=== PATIENT | male | born 1935 | race Caucasian/White ===

== ENCOUNTER 2017-12-19 09:35 | Inpatient (IN) | payer MEDICARE, BC ==
[~2017-12-19 09:35] MED LIST: Iopamidol 370 76% 100 ML VIAL ONE; Iopamidol 370 76% 50 ML VIAL FS ONE
[2017-12-19] MEDS ORDERED: Heparin 10,000 UNITS/1 ML VIAL ONE (09:50)
[2017-12-19] MEDS ORDERED: Aggrastat 12.5 MG/250 ML 250 ML ONE (10:07)
[2017-12-19] MEDS ORDERED: Fentanyl 100 MCG/2 ML VIAL ONE (10:09)
[2017-12-19] MEDS ORDERED: Clopidogrel Bisulfate 300 MG TAB ONE (10:25)
[2017-12-19] MEDS ORDERED: Nitroglycerin 0.4 MG TAB (25 Tab Bottle) SL PRN (10:40)
[2017-12-19] MEDS ORDERED: Aggrastat 12.5 MG/250 ML 250 ML IVPB SCH (10:45)
[2017-12-19 11:14] VITALS: BMI 30.6
[2017-12-19 11:18] LABS: #Eosinphils 0.1 thou/uL (0.0-0.7); #Lymphocytes 1.1 thou/uL (1.20-3.40); #Monocytes 0.3 thou/uL (0.11-0.59); #Neutrophils 5.6 thou/uL (1.40-6.50); %Basophils 0.5 % (0.0-1.0); %Eosinophils 1.6 % (0.0-10.0); %Lymphocytes 15.7 % (21.0-51.0); %Monocytes 4.3 % (0.0-10.0); %Neutrophils 77.9 % (42.0-75.0); Hemoglobin 13.5 g/dL (14.0-18.0); Mean Corpuscular HGB CONC 33.6 g/dL (32.0-36.0); Mean Corpuscular Hemoglobin 32.7 pg (27.0-31.0); Mean Corpuscular Volume 97.1 fL (78.0-98.0); Mean Platelet Volume 7.4 fL (7.4-10.4); Platelet Count 145 thou/uL (130-400); RBC Distribution Width 12.2 % (11.5-14.5); Red Blood Cell (RBC) Count 4.14 mill/uL (4.70-6.10); White Blood Cell (WBC) Count 7.2 thou/uL (4.8-10.8)
[2017-12-19 11:56] LABS: ALT (SGPT) Less than 7 U/L (8-55); AST (SGOT) 9 U/L (5-34); Albumin 3.4 g/dL (3.4-4.8); Alkaline Phosphatase 56 U/L (40-150); Anion Gap 11 mmol/L (10-20); BUN (Urea Nitrogen) 24 mg/dL (8.4-25.7); Bilirubin, Total 1.1 mg/dL (0.2-1.2); Calc. Creatinine Clearance 109 mL/min (70-130); Calcium 9.4 mg/dL (7.8-10.44); Carbon Dioxide 23 mmol/L (23-31); Chloride 104 mmol/L (98-107); Estimated GFR-MDRD 88; Globulin 2.8 g/dL (2.4-3.5); Glucose 193 mg/dL (83-110); Potassium 3.1 mmol/L (3.5-5.1); Protein, Total 6.2 g/dL (5.8-8.1); Sodium 135 mmol/L (136-145)
[2017-12-19 11:58] LABS: CKMB 2.6 ng/mL (0-6.6); Troponin I 0.075 ng/mL (< 0.028)
--- NOTE | 2017-12-19 12:31 | RAD ---
SINGLE VIEW OF THE CHEST: COMPARISON: None. HISTORY: Status post interventional cardiology. FINDINGS: A single view of the chest shows an enlarged cardiomediastinal silhouette. There is no evidence of c onsolidation, mass, or pleural effusion. Degenerative changes are seen in the spine. IMPRESSION: Cardiomegaly without evidence of acute cardiopulmonary disease. POS: [facility]
[2017-12-19] MEDS ORDERED: Carbidopa/Levodopa 10-100 mg Tablet PO SCH (13:00)
[2017-12-19] MEDS: Carbidopa/Levodopa 25-100 mg Tablet PO SCH ×3 (14:40→22:19)
[2017-12-19] MEDS: hydrALAZINE 20 MG/ML VIAL SLOW IVP PRN (15:23)
--- NOTE | 2017-12-19 17:04 | HP ---
DATE OF ADMISSION: 12/19/2017 CHIEF COMPLAINT: Chest pain. PRIMARY CASKET TRIMMER: Dr. Deonte Pires. HISTORY OF PRESENT ILLNESS: Mr. Fitzgerald is a very pleasant 82-year-old white gentleman who comes to [facility] for chest pain. He had chest pain about an hour before presenting. He went to the [facility] in the clinic. He had an EKG and he was found to have anterior ST elevations, so EM S was called and immediately transferred over to the emergency room where he was met in the front doo r and saw that he had an EKG consistent with anterior ST elevation with reciprocal changes, so we too k him directly to the catheterization. To our surprise in the labor gang supervisor, he was found to have a large amount of thrombus and a very large dominant right coronary artery. His LAD had moderate disease, b ut nothing flow limiting certainly no acute lesion to explain his anterior ST elevations. He had suc cessful PCI to his RCA with a bare metal stent. This was a 4.0 vessel with very good results. His p ain resolved immediately after this was ballooned open. He also had a manual thrombectomy performed and white thrombus came out suggestive of this being a very early presentation of an [place]. He is doing much better and is currently in the ICU with Aggrastat drip. He is chest pain free at that time. H is only complaint is knee pain from being flat. PAST MEDICAL HISTORY: 1. History of varicose veins. 2. Hypertension. 3. Chronic atrial fibrillation. 4. Chronic anticoagulation with Pradaxa. 5. TIAs in the past. 6. Atrial fibrillation ablation in the past. 7. Heart catheterization in the past showing mild coronary artery disease. 8. Moderate aortic valve stenosis. 9. Parkinson disease. OUTPATIENT MEDICATIONS: 1. Hydrochlorothiazide 25 mg a day. 2. Aspirin 81 mg a day. 3. Carbidopa/levodopa extended release 25/100 four times a day. 4. Losartan 100 mg daily. 5. Pradaxa 150 mg twice a day. ALLERGIES: BETA BLOCKERS caused him to be bradycardic. SOCIAL HISTORY: No alcohol, tobacco or drugs. FAMILY HISTORY: Noncontributory. REVIEW OF SYSTEMS: A 12-point review of systems was done and is all negative unless stated in the hi story of present illness. PHYSICAL EXAMINATION: VITAL SIGNS: Temperature 97.2, pulse 90, respiration rate 21, satting 99% on room air, blood pressur e 154/101. GENERAL: Awake, alert, oriented x3, in no distress. HEENT: Normocephalic, atraumatic. NECK: Supple. LUNGS: Clear. CARDIOVASCULAR: S1, S2. There is a grade 3/6 systolic murmur in the right upper sternal border, mid peaking. ABDOMEN: Soft, positive bowel sounds. EXTREMITIES: No edema. SKIN: Warm and dry. LABORATORY WORK: Reviewed. CBC with a white count of 7, hemoglobin of 13, hematocrit 40, platelet c ount of 145. Chemistry: Sodium of 135, potassium was 3.1. GFR was 88 with a creatinine of 0.83 and a BUN of 24. Troponin initially is 0.075 with a BNP of 134. Initial CK-MB was normal at 2.6, album in of 3.4. EKG was reviewed. Chest x-ray done recently shows mild cardiomegaly with no other acute cardiopulmonary issues. ASSESSMENT: 1. Acute inferior ST-elevation myocardial infarction. 2. Moderate aortic valve stenosis. 3. Parkinson disease. 4. Hypertension. 5. Atrial fibrillation. PLAN: 1. Admit to ICU overnight. He is currently on Aggrastat for the large amount of thrombus in his art edison. This is scheduled to be stopped at about 4:00 p.m. and an hour later we may pull the sheath and hold manual pressure for hemostasis. 2. We will slowly restart his outpatient blood pressure medications. 3. We will not restart Pradaxa until the next 24-48 hours, secondary risk of bleeding from his groin site. 4. The reason we went right femoral on his procedure is because he told me that he had not taken his Pradaxa for the last couple of days because he was not feeling well. He sometimes does this when he does not feel well, he stops his Pradaxa, so it had been at least over 48 hours since he had 1 dose. 5. For his aortic stenosis, he has had a valve area of 0.8. We were unable to cross the aortic valv e with just a pigtail. He does have moderate aortic valve stenosis on last echo. We will see what h is echo shows this time. 6. Echocardiogram pending. 7. We will start Pradaxa most likely tomorrow. This will cover him for DVT prophylaxis as well. 8. We will start PPI for stress ulcer prophylaxis. 9. Bare metal stents were placed given his need for long-term anticoagulation and the size of the ar shanna. It was a 4.0 artery so outcomes are similar with bare metal stents and drug-eluting stents on such large vessels. FULL CODE. Dr. Pires will take over his care tomorrow, his primary maid housekeeper.
[2017-12-19 17:40] LABS: Troponin I 2.473 ng/mL (< 0.028)
[2017-12-19 17:41] LABS: CKMB 21.2 ng/mL (0-6.6)
[2017-12-19] MEDS ORDERED: Atorvastatin Calcium 40 MG TAB PO SCH (21:00)
[2017-12-19] MEDS ORDERED: RYTARY PO SCH ×2 (23:30→23:45)
[2017-12-20 05:01] LABS: #Eosinphils 0.1 thou/uL (0.0-0.7); #Lymphocytes 1.3 thou/uL (1.20-3.40); #Monocytes 0.6 thou/uL (0.11-0.59); #Neutrophils 7.1 thou/uL (1.40-6.50); %Basophils 0.3 % (0.0-1.0); %Eosinophils 1.3 % (0.0-10.0); %Lymphocytes 14.3 % (21.0-51.0); %Monocytes 6.3 % (0.0-10.0); %Neutrophils 77.9 % (42.0-75.0); Hemoglobin 14.5 g/dL (14.0-18.0); Mean Corpuscular HGB CONC 34.2 g/dL (32.0-36.0); Mean Corpuscular Volume 96.5 fL (78.0-98.0); Mean Platelet Volume 6.9 fL (7.4-10.4); Platelet Count 148 thou/uL (130-400); RBC Distribution Width 12.2 % (11.5-14.5); Red Blood Cell (RBC) Count 4.38 mill/uL (4.70-6.10); White Blood Cell (WBC) Count 9.1 thou/uL (4.8-10.8)
[2017-12-20 05:22] LABS: CKMB 39.4 ng/mL (0-6.6); Troponin I 11.681 ng/mL (< 0.028)
[2017-12-20 05:25] LABS: ALT (SGPT) Less than 7 U/L (8-55); AST (SGOT) 41 U/L (5-34); Albumin 3.4 g/dL (3.4-4.8); Alkaline Phosphatase 47 U/L (40-150); Anion Gap 11 mmol/L (10-20); BUN (Urea Nitrogen) 19 mg/dL (8.4-25.7); Calc. Creatinine Clearance 109 mL/min (70-130); Carbon Dioxide 27 mmol/L (23-31); Cardiac Risk 2.8 (Less than 4.5); Chloride 107 mmol/L (98-107); Cholesterol 132 mg/dl (< 200 Desired); Estimated GFR-MDRD 88; Globulin 2.8 g/dL (2.4-3.5); Glucose 131 mg/dL (83-110); HDL Cholesterol 47 mg/dL (>60 Neg Risk); LDL Cholesterol, Calculated 75 mg/dL; Potassium 3.6 mmol/L (3.5-5.1); Protein, Total 6.2 g/dL (5.8-8.1); Sodium 141 mmol/L (136-145); Triglycerides 48 mg/dL (Less than 150)
[2017-12-20] MEDS ORDERED: Losartan 25 MG TAB PO SCH (09:00)
[2017-12-20] MEDS ORDERED: RYTARY PO SCH (09:00)
[2017-12-20] MEDS: RYTARY PO SCH ×6 (09:53→21:28)
[2017-12-20] MEDS: Amantadine HCl 100 mg Capsule PO SCH (09:53)
[2017-12-20] MEDS: Clopidogrel Bisulfate 75 MG TAB PO SCH (10:00)
[2017-12-20] MEDS ORDERED: Sodium Chloride 0.9% 500 ML IVPB SCH (12:00)
[2017-12-20] MEDS: Sodium Chloride 0.9% 1,000 ML IV SCH (12:09)
[2017-12-20] MEDS ORDERED: Docusate 100 MG CAP PO PRN (12:31)
--- NOTE | 2017-12-20 12:50 | PDOC.CTH ---
Cardiology Progress Note - Subjective He is doing well. His right groin is without issues. No chest pain, tightness, pressure. His urine is more concentrated. Had to get a suazo placed last night due to hematuria. - Objective Vital Signs Temp Pulse Pulse Pulse Resp BP BP 12/20/17 12:00 97.9 F 92 22 H 12/20/17 09:13 97 101 H 147/73 H 166/79 H 12/20/17 07:32 98 F 96 18 12/20/17 07:00 98 F 12/20/17 04:00 97.2 F L Pulse Ox Pulse Ox Pulse Ox 12/20/17 12:00 12/20/17 09:13 99 99 12/20/17 07:32 98 12/20/17 07:00 12/20/17 04:00 Weight 251 lb 8.759 oz 12/19/17 12/20/17 12/21/17 06:59 06:59 06:59 Intake Total 785 740 Output Total 2415 180 Balance -1630 560 - Physical Examination General/Neuro: alert & oriented x3, NAD Neck: no JVD present Lungs: CTA, unlabored respirations Heart: RRR Abdomen: NT/ND Extremities: other: (no edema) - Telemetry Telemetry Rhythm: NSR, PVC's - Labs Result Diagrams: 12/20/17 04:37 12/20/17 04:37 Troponin/CKMB CK-MB (CK-2) 39.4 ng/mL (0-6.6) H* 12/20/17 04:37 Troponin I 11.681 ng/mL (< 0.028) H* 12/20/17 04:37 - Assessment/Plan 1. Acute inferior STEMI 2. Hematuria. Likely from IIbIIIa. 3. Parkinsons 4. Paroxysmal afib 5. Severe Aortic stenosis. 6. HTN PLAN: - Will transfer to floor. - Continue to monitor over the weekend. Likely home Saturday. - On ARB, ASA, Statin. Has not tolerated BB in the past. - Continue other meds. - Continue cardiac rehab. - Will consult PT OT to see if placement is needed.
[2017-12-20] MEDS: Latanoprost 0.005% Ophth Soln 2.5 ml Bottle EA EYE SCH (21:25)
[2017-12-20] MEDS: Atorvastatin Calcium 40 MG TAB PO SCH (21:27)
[2017-12-21] MEDS: Sodium Chloride 0.9% 1,000 ML IV SCH ×3 (00:49→21:12)
[2017-12-21 05:12] LABS: #Eosinphils 0.2 thou/uL (0.0-0.7); #Lymphocytes 1.4 thou/uL (1.20-3.40); #Monocytes 0.6 thou/uL (0.11-0.59); %Basophils 0.2 % (0.0-1.0); %Eosinophils 3.8 % (0.0-10.0); %Monocytes 9.2 % (0.0-10.0); %Neutrophils 64.9 % (42.0-75.0); Hemoglobin 14.1 g/dL (14.0-18.0); Mean Corpuscular HGB CONC 33.7 g/dL (32.0-36.0); Mean Corpuscular Hemoglobin 32.6 pg (27.0-31.0); Mean Corpuscular Volume 96.8 fL (78.0-98.0); Mean Platelet Volume 7.3 fL (7.4-10.4); Platelet Count 133 thou/uL (130-400); RBC Distribution Width 12.3 % (11.5-14.5); Red Blood Cell (RBC) Count 4.32 mill/uL (4.70-6.10); White Blood Cell (WBC) Count 6.2 thou/uL (4.8-10.8)
[2017-12-21 05:22] LABS: ALT (SGPT) Less than 7 U/L (8-55); AST (SGOT) 29 U/L (5-34); Albumin 3.3 g/dL (3.4-4.8); Alkaline Phosphatase 47 U/L (40-150); Anion Gap 9 mmol/L (10-20); BUN (Urea Nitrogen) 22 mg/dL (8.4-25.7); Bilirubin, Total 1.6 mg/dL (0.2-1.2); Calc. Creatinine Clearance 94 mL/min (70-130); Carbon Dioxide 25 mmol/L (23-31); Chloride 107 mmol/L (98-107); Estimated GFR-MDRD 75; Glucose 169 mg/dL (83-110); Potassium 3.3 mmol/L (3.5-5.1); Protein, Total 6.3 g/dL (5.8-8.1); Sodium 138 mmol/L (136-145)
[2017-12-21] MEDS: RYTARY PO SCH ×8 (08:59→21:05)
[2017-12-21] MEDS: Amantadine HCl 100 mg Capsule PO SCH (09:00)
[2017-12-21] MEDS: Dabigatran 150 mg Capsule PO SCH ×2 (09:00→21:05)
[2017-12-21] MEDS: Clopidogrel Bisulfate 75 MG TAB PO SCH (09:00)
[2017-12-21] MEDS: Losartan 25 MG TAB PO SCH (09:00)
[2017-12-21] MEDS ORDERED: Potassium Chloride 20 MEQ TAB PO SCH (12:15)
[2017-12-21 14:24] LABS: Hemoglobin 13.5 g/dL (14.0-18.0); Platelet Count 126 thou/uL (130-400)
[2017-12-21] MEDS ORDERED: Milk Of Magnesia 30 ML UDCUP PO PRN (19:20)
[2017-12-21] MEDS: Atorvastatin Calcium 40 MG TAB PO SCH (21:05)
[2017-12-21] MEDS: Latanoprost 0.005% Ophth Soln 2.5 ml Bottle EA EYE SCH (21:05)
[2017-12-21] MEDS: Docusate 100 MG CAP PO SCH (21:05)
--- NOTE | 2017-12-22 02:03 | CON ---
DATE OF CONSULTATION: 12/21/2017 CHIEF COMPLAINT: Gross hematuria. REASON FOR CONSULTATION: Gross hematuria. HISTORY OF PRESENT ILLNESS: Mr. Fitzgerald is an 82-year-old gentleman who was admitted to the hospital o n 12/19/2017. He developed acute onset of chest pain and was seen in an outside emergency room and t hen transferred by EMS to [facility]. He underwent angiography with PCI to his right [place] ry artery with a bare-metal stent shortly after being seen in the emergency room at [place]. He h as a Rojas catheter placed and is now on anticoagulation. He has developed gross hematuria. He has no prior history of gross hematuria. Denies any prior urologic history. Denies any prostate issues. He has no prior history of stone disease or renal disease. PAST MEDICAL HISTORY: Varicose veins, chronic atrial fibrillation, Parkinson's disease, aortic valve stenosis, coronary artery disease, hypertension. MEDICATIONS: As an outpatient hydrochlorothiazide, aspirin, losartan, Pradaxa, and carbidopa/levodop a. ALLERGIES: Does not tolerate beta blockers well. SOCIAL HISTORY: Nonsmoker, denies excessive alcohol use. REVIEW OF SYSTEMS: Respiratory: Denies shortness of breath. Cardiovascular: Please see history of present illness. His chest pain has resolved since intervention. Gastrointestinal: Denies chronic constipation, diarrhea. Neurologic: Recently diagnosed with Parkinson's disease. PHYSICAL EXAMINATION: GENERAL: He is awake and alert, in no distress. HEENT: Normocephalic, atraumatic. NECK: Supple without masses. CHEST: Clear to auscultation. CARDIOVASCULAR: Regular rate and rhythm. ABDOMEN: Soft, nontender, no palpable masses. Liver and spleen are palpable. No abdominal tenderne ss noted. Rojas catheter in place. Catheter draining bloody urine. Rojas catheter was hand irrigated with sterile saline. Catheter irrigated easily. It cleared rapidl y. DIGITAL RECTAL EXAMINATION: Prostate 30 grams. No nodules, no tenderness. Seminal vesicles nonpalp able. IMPRESSION: Mr. Fitzgerald is an 82-year-old gentleman who has developed gross hematuria after initiation of anticoagulation and placement of a Rojas catheter. There is no prior history of hematuria. The hematuria seems quite mild as it cleared readily with a hand-irrigation. RECOMMENDATIONS: 1. Okay to remove Rojas catheter, check convenience. I have seen no indication to discontinue antic oagulation as the hematuria that seems quite mild at this time. 2. He will need follow up urine testing after catheter removal to ensure the hematuria has resolved even for a microscopic standpoint. He is to follow up with Urology for this.
[2017-12-22 05:14] LABS: #Eosinphils 0.4 thou/uL (0.0-0.7); #Lymphocytes 1.9 thou/uL (1.20-3.40); #Monocytes 0.7 thou/uL (0.11-0.59); #Neutrophils 4.6 thou/uL (1.40-6.50); %Basophils 0.3 % (0.0-1.0); %Lymphocytes 24.4 % (21.0-51.0); %Monocytes 9.7 % (0.0-10.0); %Neutrophils 60.5 % (42.0-75.0); Hemoglobin 12.5 g/dL (14.0-18.0); Mean Corpuscular HGB CONC 33.1 g/dL (32.0-36.0); Mean Corpuscular Volume 96.7 fL (78.0-98.0); Mean Platelet Volume 7.5 fL (7.4-10.4); Platelet Count 124 thou/uL (130-400); RBC Distribution Width 12.3 % (11.5-14.5); White Blood Cell (WBC) Count 7.6 thou/uL (4.8-10.8)
[2017-12-22 05:39] LABS: ALT (SGPT) Less than 7 U/L (8-55); AST (SGOT) 19 U/L (5-34); Albumin 3.1 g/dL (3.4-4.8); Alkaline Phosphatase 41 U/L (40-150); Anion Gap 8 mmol/L (10-20); BUN (Urea Nitrogen) 18 mg/dL (8.4-25.7); Bilirubin, Total 1.3 mg/dL (0.2-1.2); Calc. Creatinine Clearance 119 mL/min (70-130); Calcium 8.5 mg/dL (7.8-10.44); Carbon Dioxide 25 mmol/L (23-31); Chloride 109 mmol/L (98-107); Estimated GFR-MDRD Greater than 90; Globulin 2.5 g/dL (2.4-3.5); Glucose 110 mg/dL (83-110); Potassium 3.3 mmol/L (3.5-5.1); Protein, Total 5.6 g/dL (5.8-8.1); Sodium 139 mmol/L (136-145)
[2017-12-22] MEDS: Amantadine HCl 100 mg Capsule PO SCH (09:52)
[2017-12-22] MEDS: Losartan 25 MG TAB PO SCH (09:52)
[2017-12-22] MEDS: Clopidogrel Bisulfate 75 MG TAB PO SCH (09:52)
[2017-12-22] MEDS: Docusate 100 MG CAP PO SCH ×2 (09:52→20:50)
[2017-12-22] MEDS: Dabigatran 150 mg Capsule PO SCH ×2 (09:52→20:50)
[2017-12-22] MEDS: Furosemide 20 MG TAB PO SCH (09:52)
[2017-12-22] MEDS: RYTARY PO SCH ×8 (09:53→20:51)
[2017-12-22] MEDS ORDERED: Potassium Chloride 20 MEQ TAB PO SCH (19:15)
[2017-12-22] MEDS: Atorvastatin Calcium 40 MG TAB PO SCH (20:50)
[2017-12-22] MEDS: Latanoprost 0.005% Ophth Soln 2.5 ml Bottle EA EYE SCH (20:51)
[2017-12-22] MEDS: hydrALAZINE 20 MG/ML VIAL SLOW IVP PRN (21:17)
[2017-12-23 05:27] LABS: #Eosinphils 0.3 thou/uL (0.0-0.7); #Lymphocytes 1.8 thou/uL (1.20-3.40); #Monocytes 0.7 thou/uL (0.11-0.59); %Basophils 0.2 % (0.0-1.0); %Eosinophils 4.2 % (0.0-10.0); %Lymphocytes 22.9 % (21.0-51.0); %Neutrophils 63.6 % (42.0-75.0); Hemoglobin 13.5 g/dL (14.0-18.0); Mean Corpuscular Hemoglobin 32.8 pg (27.0-31.0); Mean Corpuscular Volume 96.4 fL (78.0-98.0); Mean Platelet Volume 7.6 fL (7.4-10.4); Platelet Count 138 thou/uL (130-400); RBC Distribution Width 12.4 % (11.5-14.5); Red Blood Cell (RBC) Count 4.11 mill/uL (4.70-6.10); White Blood Cell (WBC) Count 7.8 thou/uL (4.8-10.8)
[2017-12-23] MEDS: hydrALAZINE 20 MG/ML VIAL SLOW IVP PRN (05:44)
[2017-12-23 05:50] LABS: ALT (SGPT) Less than 7 U/L (8-55); AST (SGOT) 19 U/L (5-34); Albumin 3.3 g/dL (3.4-4.8); Alkaline Phosphatase 47 U/L (40-150); Anion Gap 10 mmol/L (10-20); BUN (Urea Nitrogen) 17 mg/dL (8.4-25.7); Bilirubin, Total 1.6 mg/dL (0.2-1.2); Calc. Creatinine Clearance 119 mL/min (70-130); Calcium 8.5 mg/dL (7.8-10.44); Carbon Dioxide 24 mmol/L (23-31); Chloride 108 mmol/L (98-107); Estimated GFR-MDRD Greater than 90; Globulin 2.8 g/dL (2.4-3.5); Glucose 108 mg/dL (83-110); Potassium 3.7 mmol/L (3.5-5.1); Protein, Total 6.1 g/dL (5.8-8.1); Sodium 138 mmol/L (136-145)
[2017-12-23] MEDS ORDERED: Hydrochlorothiazide 25 MG TAB PO SCH (09:00)
--- NOTE | 2017-12-23 09:27 | CON ---
DATE OF CONSULTATION: 12/22/2017 PRIMARY CARE PHYSICIAN: Appears to be Dr. Alo Otero. TIME OF SERVICE: 2330 hours. REQUESTING PHYSICIAN: Cortes Banuelos MD REASON FOR CONSULTATION: Medical management, status post ST elevation myocardial infarction. HISTORY OF PRESENT ILLNESS: Mr. Fitzgerald is a pleasant 82-year-old white male with history of lower ext remity varicose veins, hypertension, chronic atrial fibrillation, TIAs and aortic stenosis who presen rocio to the hospital 2 days ago with complaints of chest pain. He was found to have an elevated tropo juan that peaked at 11.6. He was taken to the [facility] and had a bare metal stent placed in the right coronary artery. Postop, he has been doing well, we have been consulted for medical management. He does have history of Parkinson disease followed by a neurologist in [place] that [place] in [facility]. He feels like the medicines he was put on 4 times a day has been life changing. He c urrently denies any chest pain, difficulty breathing, no nausea and vomiting. No fevers or chills. No chest pains. He denies any bleeding from gums or rectum. No bleeding from his cath site. PAST MEDICAL HISTORY: 1. Lower extremity varicose veins. 2. Hypertension. 3. Chronic atrial fibrillation. 4. Chronic anticoagulation with Pradaxa. 5. History of transient ischemic attacks. 6. Aortic stenosis. 7. Parkinson's disease. PAST SURGICAL HISTORY: 1. Includes atrial fibrillation ablation in the past. 2. PTCA showed mild coronary artery disease and recent a PTCA with significant disease and a bare me mary stent placed in the RCA. MEDICATIONS: 1. Hydrochlorothiazide 25 mg daily. 2. Aspirin 81 mg daily. 3. Losartan 100 mg daily. 4. Amantadine daily. 5. Latanoprost 0.005% 1 drop each eye at bedtime. 6. Pradaxa 150 mg p.o. b.i.d. 7. Rytary ER 62.5/2 4 caps p.o. q.i.d. 8. Aspirin 81 mg daily. 9. Triamcinolone cream 1 application topically b.i.d. p.r.n. 0.5% cream. ALLERGIES: Beta blockers cause bradycardia. FAMILY HISTORY: Negative for clotting or bleeding disorder, no immune dysfunction. SOCIAL HISTORY: Negative for habits x3. REVIEW OF SYSTEMS: All systems reviewed and negative except stated as per HPI. PHYSICAL EXAMINATION: VITAL SIGNS: Temperature 97.5, pulse 102, blood pressure 146/97, respiratory rate 20, satting 96% on room air. GENERAL: He is awake. He is alert. He is oriented x3. He is a well-developed elderly white male, appears to be in no distress. HEENT: Normocephalic and atraumatic. Pupils equal, round, and reactive to light bilaterally, mucous membranes are moist. No lip lesions or thrush. NECK: Supple. He has no lymphadenopathy, JVD, or thyromegaly. There is normal carotid upstrokes. There are no bruits. He does have a radiated murmur. LUNGS: Clear to auscultation anteriorly. He has good air movement. Symmetrical chest excursion. N o wheezes, no rales, no rhonchi. CARDIOVASCULAR: Normal S1 and S2. Slightly tachycardic. He is regular. He has a 3-4/6 systolic ej ection murmur best heard at the left upper sternal border. No radiation of the carotids in the apex. ABDOMEN: Soft, that is nontender, nondistended. No rebound, rigidity, or guarding. He has good bow el sounds in all 4 quadrants. EXTREMITIES: No signs of clubbing with 1+ in the bilateral extremities. SKIN: Warm, moist, and well well-perfused. No other rashes or lesions. MUSCULOSKELETAL: Normal to inspection. Large joints appear normal. There is no evidence of inflamm ation or palpable effusions. NEUROLOGIC: His cranial nerves II-XII are grossly intact. He does have a resting tremor that is elis y very mild consistent with Parkinson disease. He has no focal neurologic deficits. Normal speech a nd 5/5 strength. LABORATORY DATA: Sodium 139, potassium 3.3, chloride 109, bicarb 28, BUN 18, creatinine 0.76, glucos e 110, calcium 8.5. His liver function within normal limits. CBC showed a white count of 7.6, hemoglobin is 12.5, hematocrit of 37.7, platelet count 124,000. Ini tial CK-MB was 21.2 up to 39.4 and troponin I was . Echocardiogram shows EF of 55%-60% atrial f ibrillation with dilated LV and mild concentric LVH. He had a mild MR, mild to moderate TR and sever e aortic stenosis. ASSESSMENT AND PLAN: 1. Aortic stenosis. 2. Hypertension. 3. Chronic atrial fibrillation. 4. Chronic anticoagulation. 5. Severe aortic stenosis was Parkinson's disease. 6. Status post ST elevation myocardial infarction. 7. Status post stent to the right RCA. Continue his home medications for his Parkinson's. Blood pressure is under good control. He is back on his Pradaxa, Cardiology is following for his ST elevation myocardial infarction. We will follow along with you.
[2017-12-23] MEDS: Amantadine HCl 100 mg Capsule PO SCH (09:32)
[2017-12-23] MEDS: Furosemide 20 MG TAB PO SCH (09:33)
[2017-12-23] MEDS: RYTARY PO SCH ×6 (09:33→16:05)
[2017-12-23] MEDS: Dabigatran 150 mg Capsule PO SCH (09:33)
[2017-12-23] MEDS: Clopidogrel Bisulfate 75 MG TAB PO SCH (09:33)
[2017-12-23] MEDS: Docusate 100 MG CAP PO SCH (09:33)
[2017-12-23] MEDS: Losartan 25 MG TAB PO SCH (10:25)
--- NOTE | 2017-12-23 13:29 | DIS ---
DATE OF ADMISSION: 12/19/2017 DATE OF DISCHARGE: 12/23/2017 DISCHARGING PHYSICIAN: Dr. Cortes Banuelos. PRIMARY DIAGNOSES: 1. Acute inferior ST-elevation myocardial infarction. 2. Chronic atrial fibrillation, on anticoagulation with Pradaxa. 3. History of transient ischemic attacks. 4. Aortic stenosis, likely severe now. SUMMARY: Mr. Fitzgerald is a pleasant 82-year-old white gentleman, a patient of Dr. Pires, who comes in for chest pain. He was found to have what appeared to be anterior ST elevations and taken emergen tly to catheterization lab where he actually did not have any problems with the left coronary system and it was his right coronary artery he had a big thrombus in the proximal portion. This was success fully sucked out with manual thrombectomy and bare metal stent was placed secondary to him needing lo ng-term anticoagulation. Also, it was a 4.0 vessel, so patency is the same with drug-eluting versus bare metal in this setting. He had a normal course. He was placed on 2B3s initially secondary to la rge thrombus burden, but eventually was taken off of them. He did develop a little bit of hematuria, which has resolved since. He has tolerated all his medications well, and he has not had any major a rrhythmias or problems and his LV function was unchanged except he has aortic valve area of 0.6 with a max velocity of 4.0 with a mean gradient of 36 mmHg suggestive of severe aortic stenosis. DISCHARGE MEDICATIONS: Reviewed and include, 1. Hydrochlorothiazide 25 mg a day. 2. Aspirin will be discontinued. 3. Losartan 100 mg a day. 4. Amantadine. 5. Latanoprost. 6. Pradaxa 150 mg b.i.d. 7. Rytary ER capsules. 8. Triamcinolone cream. 9. Atorvastatin 40 mg at bedtime. 10. Plavix 75 mg a day, this for the next month minimal, longer if it is tolerated. He will start a spirin after he is done with his Plavix. FOLLOWUP APPOINTMENTS: 1. With Dr. Pires or his PA Dede Vazquez in 2-4 weeks. 2. He already has an appointment for cardiac rehabilitation. Discharged home in stable condition.
--- NOTE | 2017-12-23 14:29 | PDOC.PN ---
- Subjective Encounter Start Date: 12/23/17 Encounter Start Time: 14:27 (late entry) Subjective: pt mellissa nd examined. care discussed w daughter at bedside. -: chart reviewed/ -: denies any CP/SOB. walked about 76 feet w CR - Objective MAR Reviewed: Yes Vital Signs & Weight: Vital Signs (12 hours) Temp Pulse Pulse Pulse Resp BP BP 12/23/17 12:20 98.5 F 107 H 18 12/23/17 10:36 102 H 101 H 138/76 12/23/17 09:59 108 H 115 H 173/87 H 12/23/17 07:36 97.7 F 104 H 18 12/23/17 06:25 12/23/17 05:44 100 176/100 H 12/23/17 05:38 98.7 F 110 H 20 BP BP BP Pulse Ox Pulse Ox Pulse Ox 12/23/17 12:20 139/78 96 12/23/17 10:36 132/88 12/23/17 09:59 170/88 H 94 L 96 12/23/17 07:36 160/85 H 97 12/23/17 06:25 157/90 H 12/23/17 05:44 12/23/17 05:38 181/113 H 98 Weight Weight 237 lb 4.8 oz Most Recent Monitor Data Heart Rate from ECG 86 NIBP 157/84 NIBP BP-Mean 112 Respiration from ECG 24 SpO2 98 I&O: 12/22/17 12/23/17 12/24/17 06:59 06:59 06:59 Intake Total 2196 2080 Output Total 1125 1400 Balance 1071 680 Result Diagrams: 12/23/17 05:03 12/23/17 05:03 Additional Labs: Microbiology 12/21/17 23:46 Urine suazo catheter Urine Culture - Preliminary Coagulase Neg Staphylococcus 12/21/17 23:46 Urine suazo catheter Urine Culture - Preliminary labs reviewed Phys Exam - Physical Examination Constitutional: NAD HEENT: PERRLA, moist MMs, sclera anicteric, oral pharynx no lesions Neck: no nodes, no JVD, supple, full ROM Respiratory: no wheezing, no rales, no rhonchi, clear to auscultation bilateral Cardiovascular: RRR, no significant murmur, no rub Gastrointestinal: soft, non-tender, no distention, positive bowel sounds Musculoskeletal: no edema, pulses present Neurological: non-focal, normal sensation, moves all 4 limbs Psychiatric: normal affect, A&O x 3 Skin: no rash Dx/Plan (1) STEMI (ST elevation myocardial infarction) Status: Acute Comment: s/p PCI to RCA (2) Essential (primary) hypertension Code(s): I10 - ESSENTIAL (PRIMARY) HYPERTENSION Status: Acute (3) Chronic a-fib Code(s): I48.2 - CHRONIC ATRIAL FIBRILLATION Status: Acute (4) Parkinson disease Code(s): G20 - PARKINSON'S DISEASE Status: Acute (5) Aortic stenosis Code(s): I35.0 - NONRHEUMATIC AORTIC (VALVE) STENOSIS Status: Acute (6) Chronic anticoagulation Code(s): Z79.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 pt unsure. CM consulted -: meds as below. On pradaxa -: ASA.Plavix for at least 1 month the per cardiology -: hemodynamically stable. will follow if stays in house * . Review of Systems - Review of Systems Constitutional: weakness. negative: fever, chills, sweats, malaise, other ENT: negative: Ear Pain, Ear Discharge, Nose Pain, Nose Discharge, Nose Congestion, Mouth Pain, Mouth Swelling, Throat Pain, Throat Swelling, Other Respiratory: negative: Cough, Dry, Shortness of Breath, Hemoptysis, SOB with Excertion, Pleuritic Pain, Sputum, Wheezing Cardiovascular: negative: chest pain, palpitations, orthopnea, paroxysmal nocturnal dyspnea, edema, light headedness, other Gastrointestinal: negative: Nausea, Vomiting, Abdominal Pain, Diarrhea, Constipation, Melena, Hematochezia, Other Genitourinary: negative: Dysuria, Frequency, Incontinence, Hematuria, Retention , Other Musculoskeletal: negative: Neck Pain, Shoulder Pain, Arm Pain, Back Pain, Hand Pain, Leg Pain, Foot Pain, Other Skin: negative: Rash, Lesions, Nnamdi, Bruising, Other Neurological: negative: Weakness, Numbness, Incoordination, Change in Speech, Confusion, Seizures, Other - Medications/Allergies Allergies/Adverse Reactions: Allergies Allergy/AdvReac Type Severity Reaction Status Date / Time No Known Allergies Allergy Unverified 12/19/17 11:27 Medications: Current Medications Amantadine HCl (Symmetrel) 100 mg PO DAILY [facility] Last Admin: 12/23/17 09:32 Dose: 100 mg Atorvastatin Calcium (Lipitor) 40 mg PO HS [facility] Last Admin: 12/22/17 20:50 Dose: 40 mg Clopidogrel Bisulfate (Plavix) 75 mg PO DAILY [facility] Last Admin: 12/23/17 09:33 Dose: 75 mg Dabigatran (Pradaxa) 150 mg PO BID [facility] Last Admin: 12/23/17 09:33 Dose: 150 mg Docusate Sodium (Colace) 100 mg PO BID [facility] Last Admin: 12/23/17 09:33 Dose: 100 mg Furosemide (Lasix) 20 mg PO DAILY [facility] Last Admin: 12/23/17 09:33 Dose: 20 mg Hydralazine HCl (Apresoline) 10 mg SLOW IVP Q4H PRN PRN Reason: SBP >170 Last Admin: 12/23/17 05:44 Dose: 10 mg Hydrochlorothiazide (Hydrochlorothiazide) 25 mg PO DAILY [facility] Last Admin: 12/23/17 09:33 Dose: 25 mg Latanoprost (Xalatan 0.005% [facility]) 1 drop EA EYE HS [facility] Last Admin: 12/22/17 20:51 Dose: 1 drop Losartan Potassium (Cozaar) 100 mg PO DAILY [facility] Last Admin: 12/23/17 10:25 Dose: 100 mg Magnesium Hydroxide (Milk Of Magnesium) 30 ml PO DAILYPRN PRN PRN Reason: Constipation Last Admin: 12/22/17 10:40 Dose: 30 ml Morphine Sulfate (Morphine) 2 mg SLOW IVP Q4H PRN PRN Reason: Moderate Pain (4-6) Nitroglycerin (Nitrostat) 0.4 mg SL Q5MIN PRN PRN Reason: Chest Pain Rytary 61.25-245 Mg ((Carbidopa/Levodopa)) 1 each PO QID [facility] Last Admin: 12/23/17 12:22 Dose: 1 each Rytary 23.75-95 Mg ( (Carbidopa/Levodopa)) 1 each PO QID [facility] Last Admin: 12/23/17 12:23 Dose: 1 each
[2017-12-23 16:10] VITALS: BP 132/76; TEMP 98.4
== END 2017-12-23 19:46 | disposition home or self-care (01) | DRG 249 ==
LOC: ERS 09:35 → CCL 09:49 → CCU 10:04 → 2NO 12-20 17:06
PROVIDERS: ADMIT Internal Medicine Cardiovascular Disease; ATTEND Internal Medicine Cardiovascular Disease
PROC: 02703DZ Dilation of Coronary Artery, One Artery with Intraluminal Device, Percutaneous Approach (ICD-10-PCS; principal; 2017-12-19)
PROC: 4A023N7 Measurement of Cardiac Sampling and Pressure, Left Heart, Percutaneous Approach (ICD-10-PCS; 2017-12-19)
PROC: B211YZZ Fluoroscopy of Multiple Coronary Arteries using Other Contrast (ICD-10-PCS; 2017-12-19)
DX: I21.19 ST elevation (STEMI) myocardial infarction involving other coronary artery of inferior wall (principal); I48.2 Chronic atrial fibrillation; I35.0 Nonrheumatic aortic (valve) stenosis; I10 Essential (primary) hypertension; G20 Parkinson's disease; R31.0 Gross hematuria; I25.10 Atherosclerotic heart disease of native coronary artery without angina pectoris; Z79.01 Long term (current) use of anticoagulants; Z86.73 Personal history of transient ischemic attack (TIA), and cerebral infarction without residual deficits
CPT/HCPCS: 36415; 71045; 80053; 80061; 82553; 83880; 84484; 85025; 85347; 87077; 87086; 87186; 92928; 93005; 93010; 93306; 93454; 93798; C1757; C1769; C1876; C1887; G8978-GP-CM; G8979-GP-CJ; G8987-GO-CJ; G8988-GO-CI; J0360; J1644; J3010; J3246

== ENCOUNTER 2018-02-27 14:05 | Inpatient (IN) | payer MEDICARE, BC ==
[2018-02-27 15:24] LABS: #Eosinphils 0.1 thou/uL (0.0-0.7); #Monocytes 0.3 thou/uL (0.11-0.59); #Neutrophils 3.5 thou/uL (1.40-6.50); %Basophils 0.5 % (0.0-1.0); %Eosinophils 1.9 % (0.0-10.0); %Lymphocytes 33.4 % (21.0-51.0); %Monocytes 5.8 % (0.0-10.0); %Neutrophils 58.4 % (42.0-75.0); Mean Corpuscular HGB CONC 33.3 g/dL (32.0-36.0); Mean Corpuscular Volume 96.1 fL (78.0-98.0); Mean Platelet Volume 8.1 fL (7.4-10.4); Platelet Count 190 thou/uL (130-400); RBC Distribution Width 14.1 % (11.5-14.5); Red Blood Cell (RBC) Count 2.82 mill/uL (4.70-6.10); White Blood Cell (WBC) Count 5.9 thou/uL (4.8-10.8)
[2018-02-27 15:43] LABS: ALT (SGPT) Less than 7 U/L (8-55); AST (SGOT) 14 U/L (5-34); Albumin 2.8 g/dL (3.4-4.8); Alkaline Phosphatase 85 U/L (40-150); Anion Gap 12 mmol/L (10-20); BUN (Urea Nitrogen) 76 mg/dL (8.4-25.7); Bilirubin, Total 1.8 mg/dL (0.2-1.2); Calc. Creatinine Clearance 0 mL/min (70-130); Calcium 8.5 mg/dL (7.8-10.44); Carbon Dioxide 24 mmol/L (23-31); Chloride 108 mmol/L (98-107); Estimated GFR-MDRD 14; Globulin 3.9 g/dL (2.4-3.5); Glucose 128 mg/dL (83-110); Lipase 21 U/L (8-78); Potassium 3.9 mmol/L (3.5-5.1); Protein, Total 6.7 g/dL (5.8-8.1); Sodium 140 mmol/L (136-145)
[2018-02-27 15:47] LABS: CKMB 2.5 ng/mL (0-6.6); Troponin I 0.031 ng/mL (< 0.028)
--- NOTE | 2018-02-27 16:31 | CT ---
CT ABDOMEN WITHOUT CONTRAST CT PELVIS WITHOUT CONTRAST 02/27/18 HISTORY: Distended abdomen. History of urinary retention. COMPARISON: 01/13/18. TECHNIQUE: An abdomen and pelvic CT are performed without IV or oral contrast. Coronal reformatted images are clemens bmitted for interpretation. ABDOMEN CT: Chronic changes in the lung bases. There is calcification in the coronary arteries. The heart is enla rged. No pericardial fluid. The descending thoracic aorta and abdominal aorta demonstrate atheroscler osis. No periaortic fat stranding or aneurysmal dilatation. Symmetric attenuation of the psoas muscles. Limited evaluation of solid organs by lack of IV contrast. Hypodensities in the liver are noted and l ikely represents cysts. Moderate distention of an unremarkable gallbladder. No evidence of pericholec ystic fluid. The spleen, adrenal glands, and pancreas are grossly unremarkable. No gastrohepatic, retrocrural or periportal lymphadenopathy. No mesenteric mass, lymphadenopathy, free air or free fluid. Limited evaluation of the alimentary canal by lack of oral contrast. No evidence of bowel obstruction . Ileocecal junction is normal. Scattered fecal material in a nondistended, nondilated colon. Normal caliber appendix. Moderate bilateral hydronephrosis without associating calculi in the intrarenal collecting system. Th ere is dilatation of both ureters with mild to moderate hydroureter. No evidence of obstructing calcu li. No calcification along the course of either ureter is appreciated. PELVIC CT: There is enlarged prostate gland. There is moderate distention of the urinary bladder. No pelvic mass , lymphadenopathy, free air or free fluid. No lytic or blastic lesion in the osseous structures. IMPRESSION: Moderate bilateral obstructive uropathy likely due to bladder outlet obstruction, given that the blad alpesh is distended. No evidence of an obstructing mass or calculus in either intra or extrarenal collec ting system. POS: [facility]
[2018-02-27 16:38] LABS: Bilirubin Small (Negative); Blood, Urine Large (Negative); Clarity CLOUDY (Clear); Glucose, Urine (Dipstick) Negative (Negative); Leukocyte Moderate (Negative); Nitrite Negative (Negative); Protein, Urine (Dipstick) Negative (Neg-Trace); Specific Gravity, Urine 1.016 (1.002-1.036); Urobilinogen 0.2 mg/dL (0.2-1.0)
[2018-02-27 16:40] LABS: Bacteria/HPF None Seen HPF (None Seen); Hyaline Casts/LPF 0-3 HYALINE CAST LPF (0-3 Hyaline); Squamous Epithelial None Seen HPF (0-3)
[2018-02-27 16:41] LABS: Yeast-AUWi Flag 38.8 (0-25.0)
[2018-02-27 16:51] LABS: Yeast-All Forms None Seen HPF (None Seen)
[2018-02-27 16:52] LABS: Crystals/HPF 1+ AMORPH URATES HPF (Negative)
[2018-02-27 20:30] LABS: Troponin I 0.045 ng/mL (< 0.028)
[2018-02-27 22:58] LABS: Troponin I 0.038 ng/mL (< 0.028)
[2018-02-27] MEDS ORDERED: Acetaminophen 325 MG TAB PO PRN ×2 (23:30→23:53)
[2018-02-27] MEDS ORDERED: Sodium Chloride 0.9% 1,000 ML IV SCH (23:30)
[2018-02-27] MEDS ORDERED: Ondansetron HCl/PF 4 MG/2 ML Vial IVP PRN (23:30)
[2018-02-27] MEDS ORDERED: Ondansetron ODT 4 MG TAB SL PRN (23:30)
[2018-02-27] MEDS ORDERED: Pepto Bismol Chew TAB PO PRN (23:53)
[2018-02-27] MEDS ORDERED: Bisacodyl 5 MG TAB PO PRN (23:53)
[2018-02-28 00:38] LABS: Iron 48 ug/dL (65-175); Iron Binding Capacity, Total 134 mcg/dL (261-462)
[2018-02-28] MEDS: cefTRIAXone\\ROCEPHIN 1 GM in Sodium Chloride 0.9% 100 ML IVPB SCH (02:12)
[2018-02-28 05:00] LABS: #Eosinphils 0.2 thou/uL (0.0-0.7); #Lymphocytes 2.2 thou/uL (1.20-3.40); #Monocytes 0.4 thou/uL (0.11-0.59); #Neutrophils 3.2 thou/uL (1.40-6.50); %Basophils 0.1 % (0.0-1.0); %Eosinophils 2.8 % (0.0-10.0); %Lymphocytes 37.1 % (21.0-51.0); %Monocytes 6.7 % (0.0-10.0); %Neutrophils 53.4 % (42.0-75.0); Hemoglobin 8.4 g/dL (14.0-18.0); Mean Corpuscular HGB CONC 33.9 g/dL (32.0-36.0); Mean Corpuscular Hemoglobin 32.6 pg (27.0-31.0); Mean Corpuscular Volume 96.2 fL (78.0-98.0); Mean Platelet Volume 8.3 fL (7.4-10.4); Platelet Count 192 thou/uL (130-400); RBC Distribution Width 14.1 % (11.5-14.5); Red Blood Cell (RBC) Count 2.58 mill/uL (4.70-6.10); White Blood Cell (WBC) Count 6.1 thou/uL (4.8-10.8)
[2018-02-28 05:13] LABS: Albumin 2.4 g/dL (3.4-4.8); Anion Gap 12 mmol/L (10-20); BUN (Urea Nitrogen) 60 mg/dL (8.4-25.7); BUN/Creatinine Ratio 23.08; Calc. Creatinine Clearance 30 mL/min (70-130); Calcium 8.1 mg/dL (7.8-10.44); Carbon Dioxide 21 mmol/L (23-31); Chloride 114 mmol/L (98-107); Estimated GFR-MDRD 24; Glucose 98 mg/dL (83-110); Phosphorus 3.5 mg/dL (2.3-4.7); Potassium 3.3 mmol/L (3.5-5.1); Sodium 144 mmol/L (136-145)
--- NOTE | 2018-02-28 05:23 | HP ---
CHIEF COMPLAINT: Urinary hesitancy. HISTORIAN: Patient and patient's spouse. HISTORY OF PRESENT ILLNESS: This is an 83-year-old white male with a past medical history of Sahra on disease, hypertension, atrial fibrillation on chronic anticoagulation therapy, recurrent UTI, and recent stroke, presenting with urinary retention per spouse who was by the bedside, patient has been having difficulty with urination and in the senior living at [facility], tried to straight cat h the patient and probably small dark urine came out. Therefore, the senior living wanted to send the patient to the hospital for evaluation. In the hospital, patient was straight cathed and about 400 mL of dark urine was produced. Per records, patient has had history of urinary tract infection and w as treated with Rocephin. The patient was recently in the hospital on 01/25/2018. During that hospi mary visit, the patient was found to have possible stroke. Patient also was found to have left leg ma ss which per the daughter by the bedside, no workup was pursued. At this point, the patient denies a ny abdominal pain, nausea, vomiting; however, states that he feels like he wants to urinate. REVIEW OF SYSTEMS: Positive for suprapubic pain, feeling of urinary hesitancy. Otherwise, as docume nted in the HPI, all systems were reviewed and are negative. PAST MEDICAL HISTORY: Chronic atrial fibrillation on anticoagulation, it is unknown whether the claude ent takes Pradaxa or patient takes Eliquis; history of recurrent TIA; aortic valve stenosis; Parkinso n's dementia; varicose veins; hypertension; benign prostatic hyperplasia; chronic low back pain, jaida nary artery disease. PAST SURGICAL HISTORY: Cardiac catheterization, status post bare metal stent placement; atrial fibri llation, status post ablation; varicose vein surgery. PSYCHIATRIC HISTORY: Dementia. FAMILY HISTORY: Reviewed and noncontributory. ALLERGIES: BETA DIANA. SOCIAL HISTORY: Currently, the patient is residing at [facility]. Does not drink, does not smoke, and does not do any illicit drug. CODE STATUS: Patient is FULL CODE. The patient's daughter is a surrogate decision maker. CURRENT HOME MEDICATIONS: The patient is on; 1. Amantadine 100 mg. 2. Aspirin 81 mg. 3. Sinemet 1.5 tabs. 4. Plavix 75 mg. 5. Pradaxa 150 mg p.o. b.i.d. 6. Cardizem 360 mg p.o. daily. 7. Colace 100 mg p.o. daily. 8. Hydrochlorothiazide 25 mg p.o. daily. 9. Lidoderm patch topical daily. 10. Losartan 100 mg p.o. daily. 11. MiraLax. 12. Flomax. PHYSICAL EXAMINATION: VITAL SIGNS: Blood pressure 104/66, heart rate of 78, respiratory rate is 18, temperature 97.5, O2 s at is 95 on room air. GENERAL: Patient is lying in bed, having tremors, is not in any acute distress. The patient is able to speak in full sentences. HEENT: Normocephalic, atraumatic. Pupils are equally round and reactive to light. Extraocular musc les are intact. No scleral icterus. NECK: Supple. No tracheal deviations. Mucous membranes are moist. LUNGS: Clear to auscultation bilaterally. No wheezing, no rales, no rhonchi is appreciated. CARDIAC: Positive S1, S2, tachycardic. Systolic murmur 2/6 appreciated. ABDOMEN: Palpable mass extending from the bladder to the umbilicus noted. Mild suprapubic tendernes s, positive bowel sounds in all quadrants. No ecchymosis noted. EXTREMITIES: Upper extremity: Patient has tremors of the upper extremity; however, patient is able to move upper and lower extremities bilaterally. The patient is to have pitting edema bilaterally, l eft leg worse than right. NEUROLOGIC: No focal neurologic deficit is noted; however, the patient has tremors. PSYCHIATRIC: The patient is alert, oriented x3, normal affect. SKIN: Warm, dry, and intact. ED COURSE: In the ED, the patient was given normal saline. IMAGING: EKG shows atrial fibrillation. CT of the abdomen and pelvis showed enlarged prostate, bila teral hydronephrosis, moderate bilateral obstructive uropathy, likely due to bladder outlet obstructi on given that the bladder is distended. No evidence of an obstructing mass or calculi either intra o r extrarenal collecting system. LABORATORY DATA: WBC is 5.9, hemoglobin is 9.0, hematocrit is 27.1, platelets 190,000. Electrolytes : Sodium 140, potassium is 3.9, chloride 108, carbon dioxide is 24, anion gap of 12, BUN is 76, crea tinine is 3.98, GFR is 14. Glucose of 128, calcium of 8.5, iron 48, TIBC 134 ferritin is 468, AST 14 , ALT less than 7. Troponins 0.031, 0.045, 0.038 respectively. BNP 196.9. Urinalysis negative for nitrite, moderate leukoesterase. ASSESSMENT AND PLAN: This is an 83-year-old male with Parkinson disease, recurrent urinary tract inf ections, recent stroke, being admitted for: 1. Urinary retention secondary to bladder outlet obstruction. At this point, the patient's bladder outlet obstruction has been confirmed with a CT of the abdomen and pelvis. We have consulted Urology if patient receives straight catheter and patient had an output of 400 mL; however, on physical exam , patient to have distended bladder extending all the way to the umbilicus. At this point, we will i nsert a coude catheter. We will continue to follow the patient closely. We will continue patient on home medications. 2. Anemia of iron deficiency and chronic inflammation. Patient's iron level is low at 48, we will s tart patient on Feosol and vitamin C. 3. Acute on chronic kidney disease, stage 5. The patient's GFR is 14. We have consulted Nephrology . We will follow up with Nephrology's recommendation. 4. Urinary tract infection. We will start the patient on Rocephin. We will continue patient on Guillermo ephin. 5. History of Parkinson's. We will continue the patient on home medication. Currently, the patient is alert, oriented x3. The patient is currently stable. 6. Hypertension. We will treat patient's blood pressure. At this point, the patient's blood pressu re is under control. We are holding the patient's antihypertensive medications. 7. Aortic valve stenosis. We are currently going to monitor at this time. The patient's echo in past showed left ventricular ejection fraction of 50-55%. 8. Chronic atrial fibrillation. We will continue patient on Pradaxa. 9. Urinary retention. At this point, we have a coude catheter in place. We have the urology consul rocio. 10. Cerebrovascular accident, currently stable. We will continue patient's home medication. 11. History of myocardial infarction, currently stable. We will continue patient on current medicat ions. 12. Deep vein thrombosis and gastrointestinal prophylaxis. We will do Pepcid for gastrointestinal p rophylaxis and Pradaxa for deep vein thrombosis prophylaxis.
[2018-02-28] MEDS: Carbidopa/Levodopa 25-100 mg Tablet PO SCH ×4 (06:08→18:11)
[2018-02-28] MEDS ORDERED: Diltiazem HCl SR 90 mg Capsule PO SCH (06:30)
[2018-02-28] MEDS ORDERED: Dabigatran 150 mg Capsule PO SCH (09:00)
[2018-02-28] MEDS ORDERED: Apixaban 2.5 MG TAB PO SCH (09:00)
[2018-02-28] MEDS ORDERED: Apixaban 5 MG TAB PO SCH (09:00)
[2018-02-28] MEDS: Clopidogrel Bisulfate 75 MG TAB PO SCH (09:32)
[2018-02-28] MEDS: Diltiazem HCl SR 90 mg Capsule PO SCH ×4 (09:32→21:02)
[2018-02-28] MEDS: Hydrochlorothiazide 25 MG TAB PO SCH (09:32)
[2018-02-28] MEDS: Folic Acid 1 MG TAB PO SCH (09:32)
[2018-02-28] MEDS: Amantadine HCl 100 mg Capsule PO SCH (09:32)
[2018-02-28] MEDS: Famotidine/PF 20 mg/2ml Vial SLOW IVP SCH (09:32)
--- NOTE | 2018-02-28 11:48 | PDOC.PN ---
- Subjective Encounter Start Date: 02/28/18 Encounter Start Time: 11:45 Subjective: f/u for urinary retention due to prostatic hypertrophy and likely recent -: ischemic CVA, decreased mobility. Also tx for potential UTI with Rocephin. - Objective Resuscitation Status: Resuscitation Status FULL:Full Resuscitation MAR Reviewed: Yes Vital Signs & Weight: Vital Signs (12 hours) Temp Pulse Resp BP BP Pulse Ox 02/28/18 11:18 97.6 F 113 H 16 117/97 H 100 02/28/18 07:50 98.1 F 104 H 16 95 02/28/18 07:45 98.1 F 104 H 16 112/91 H 95 02/28/18 00:30 97.0 F L 109 H 16 135/86 96 Weight Weight 217 lb 9 oz I&O: 02/27/18 02/28/18 03/01/18 06:59 06:59 06:59 Intake Total 790 Output Total 3650 Balance -2860 Result Diagrams: 02/28/18 04:22 02/28/18 04:22 Additional Labs: Microbiology 02/27/18 16:14 Stool - Pending Stool Occult Blood (STEVEN) - Final Laboratory Tests 02/27/18 02/27/18 02/27/18 15:04 15:04 15:04 Hgb 9.0 L Potassium 3.9 Creatinine 3.98 H Iron TIBC Ferritin B-Natriuretic Peptide 196.9 H 02/27/18 02/27/18 15:04 22:25 Hgb Potassium Creatinine Iron 48 L TIBC 134 L Ferritin 468.43 H B-Natriuretic Peptide Radiology Reviewed by me: Yes (CT abd/pel - bilat hydronephrosis, obstructive uropathy) EKG Reviewed by me: Yes (Tele - A-fib in 80's) Phys Exam - Physical Examination Constitutional: NAD alert, responsive HEENT: PERRLA, sclera anicteric, oral pharynx no lesions Neck: no nodes, no JVD, supple, full ROM Respiratory: no wheezing, no rales, no rhonchi, clear to auscultation bilateral S1, S2 Cardiovascular: no rub, gallop, irregular Gastrointestinal: soft, non-tender, no distention, positive bowel sounds Musculoskeletal: no edema, pulses present resting tremor of BUE's Neurological: moves all 4 limbs Psychiatric: A&O x 3 Skin: normal turgor, cap refill <2 seconds Deviation from normal: Rojas in place with dark urine Dx/Plan (1) Obstructive uropathy Code(s): N13.9 - OBSTRUCTIVE AND REFLUX UROPATHY, UNSPECIFIED Status: Acute Comment: Likely due to prostatic hypertrophy in addition to recent ischemic CVA , Urology consult, Rojas catheter (2) LUKE (acute kidney injury) Code(s): N17.9 - ACUTE KIDNEY FAILURE, UNSPECIFIED Status: Acute Comment: Secondary to obstructive uropathy, avoid nephrotoxic meds and limit contrast exposure, Rojas catheter for bladder decompression (3) Chronic anticoagulation Code(s): Z79.01 - SENIOR LIVING (CURRENT) USE OF ANTICOAGULANTS Status: Chronic Comment: Continue Pradaxa, serial CBC monitoring, Guaiac negative x 1 (4) UTI (urinary tract infection) Status: Acute Qualifiers: Urinary tract infection type: site unspecified Hematuria presence: without hematuria Qualified Code(s): N39.0 - Urinary tract infection, site not specified Comment: suspected given obstructive uropathy, continue Rocephin pending final Ucx results (5) Parkinson disease Code(s): G20 - PARKINSON'S DISEASE Status: Chronic Comment: Continue Carbidopa/Levodopa (6) Normocytic anemia Code(s): D64.9 - ANEMIA, UNSPECIFIED Status: Chronic Comment: Likely multifactorial, monitor CBC trend, start FeSO4 325mg BID - Plan plan discussed w/ family, continue antibiotics, PT/OT, social group worker, DVT proph w/SCDs Stable overall -: Continue Rojas catheter for bladder decompression -: Continue Rocephin pending final Ucx -: Await Urology consultation -: AM lab: BMP, CBC * .
[2018-02-28] MEDS ORDERED: Polyethylene Glycol 3350 17 GM Packet PO PRN (11:57)
--- NOTE | 2018-02-28 13:38 | CON ---
DATE OF CONSULTATION: 02/28/2018 NEPHROLOGY CONSULT REASON FOR CONSULTATION: Elevated creatinine. HISTORY OF PRESENT ILLNESS: This is a very pleasant 83-year-old gentleman who was admitted this [facility] with urinary urgency and hesitancy. The patient was noted to have a creatinine of 3.9 on admissi on, improved to 2.6. The patient denies no headache, numbness, tingling or weakness and the patient is a poor historian. PAST MEDICAL HISTORY: Significant for obstructive uropathy, history of UTI, history of stroke, histo ry of dementia, history of Parkinson's disease, history of atrial fibrillation, aortic stenosis, jaida nary artery disease. PAST SURGICAL HISTORY: Cardiac catheterization, stent, and ablation. SOCIAL AND ECONOMIC HISTORY: No alcohol. FAMILY HISTORY: Negative for ESRD. ALLERGIES: Reviewed. REVIEW OF SYSTEMS: A 15-point review of systems was performed and was negative except for positives noted above. GENERAL: Weakness- HEAD: Headache- NECK: No swelling or lumps. NOSE: No epistaxis or discharge. EYES: No diplopia or pain. RESPIRATORY: Dyspnea- CARDIOVASCULAR: Chest pain- GASTROINTESTINAL: Nausea- /COUNTER MOLDER: Hematuria- MUSCULOSKELETAL: No joint pain. NEUROPSYCHIATRIC SYSTEMS: No suicidal ideation. No ideation. SKIN: Denies any rash or ulcer. CONSTITUTIONAL: No fever or chills. PHYSICAL EXAMINATION: GENERAL: Patient is awake, alert. VITAL SIGNS: Afebrile, pulse 74, breathing 16, blood pressure 112/91. GENERAL APPEARANCE AND MENTAL STATUS: Fair. HEAD/NECK: Normocephalic. Atraumatic. EYES: EOMI. No deformity. EARS: Clear. No ulcers. NOSE: Intact. No lesions. MOUTH: Clear. No discharge. THROAT: Clear. No exudate. LUNGS: Clear. No crackles. CARDIAC: S1, S2. No rub. ABDOMEN: Benign. BS+. GENITALIA/RECTUM: Rojas absent. BACK/EXTREMITIES: Edema 0+ Ulcer- NEUROLOGICAL: Alert and motor intact. SKIN: Rash- Bruise- LYMPHATICS: Edema- Ulcer- LABORATORY: Lab show potassium 3.3, creatinine 2.6. ASSESSMENT AND RECOMMENDATIONS: 1. Acute kidney injury with chronic kidney disease stage 4, stable. 2. Acute kidney injury is most likely because of acute tubular necrosis. 3. Anemia, stable. 4. Metabolic acidosis, stable. 5. Hypokalemia. Recommend high potassium diet. No urgent indication for dialysis. 6. Anemia, stable. 7. Hypoalbuminemia, indicates protein calorie malnutrition. Prognosis is guarded.
[2018-02-28] MEDS: Ferrous Sulfate 325 MG TAB PO SCH (16:31)
--- NOTE | 2018-02-28 18:55 | CON ---
DATE OF CONSULTATION: 02/28/2018 REASON FOR CONSULTATION: Gross hematuria, bilateral hydroureteronephrosis, urinary retention. HISTORY OF PRESENT ILLNESS: Mr. Fitzgerald is an 83-year-old gentleman who has been seen by me in the [facility] t on two separate occasions. I first saw him on 12/21/2017 at [facility] when he was admitt ed for chest pain and transferred to [place]. We received a right coronary bare metal stent. He developed gross hematuria post-procedurally and for that reason, an urologic consultation was gregorio newman. He was managed with an indwelling Rojas catheter which readily cleared with irrigation. He was e ventually discharged from the hospital and I saw him again in consultation on 01/08/2018. At that ti me, patient had been at home and voiding without complaints, but was readmitted to the hospital on for weakness and fatigue and difficulty walking. During that hospitalization, he was noted to be in urinary retention. He was eventually discharged from that hospitalization with a Rojas cath eter in place and it was eventually removed and again the patient apparently was voiding well until r ecently. He was admitted to the hospital most recently on 02/28/2018 with complaints of altered ment al status. He underwent imaging in the emergency room which demonstrated bilateral hydroureteronephr osis. He did complain of difficulty voiding the time of admission. A Rojas catheter has since been placed. He has no complaints at the current time. PAST MEDICAL HISTORY: Chronic atrial fibrillation, recent stent placement for coronary artery diseas e, history of TIA, history of aortic valve stenosis, history of Parkinson's dementia. PAST SURGICAL HISTORY: Cardiac catheterization, status post bare metal stent placement in the recent past, varicose vein surgery. ALLERGIES: BETA BLOCKERS. MEDICATIONS: Please see hospital chart. SOCIAL HISTORY: He is currently residing at [facility]. Nonsmoker, nondrinker. REVIEW OF SYSTEMS: GENERAL APPEARANCE: Patient denies any complaints. RESPIRATORY: Denies shortne ss of breath or wheezing. CARDIOVASCULAR: Denies chest pain or palpitations. GASTROINTESTINAL: De nies chronic constipation or diarrhea. PHYSICAL EXAMINATION: GENERAL: He is awake, alert, is in no distress. HEENT: Normocephalic, atraumatic. NECK: Supple, without masses. CHEST: Clear. ABDOMEN: Soft and nontender. Rojas catheter hand irrigated and cleared easily, only tiny amount of small clots were obtained. IMPRESSION: Recurrent urinary retention and associated hydroureteronephrosis and renal insufficiency . I will need to discuss further treatment with his daughter. At the current time, hydroureteroneph rosis and renal insufficiency should improve with Rojas catheter in place. This may be a chronic con dition for him and that he may not be cleared surgically for quite some time as a result of his recen t placement of a coronary stent. RECOMMENDATIONS: 1. Rojas was to gravity. 2. I will discuss further management options with daughter.
[2018-02-28] MEDS ORDERED: Atorvastatin Calcium 40 MG TAB PO SCH (21:00)
[2018-02-28] MEDS: Tamsulosin HCl 0.4 MG CAP PO SCH (21:03)
[2018-03-01] MEDS: cefTRIAXone\\ROCEPHIN 1 GM in Sodium Chloride 0.9% 100 ML IVPB SCH (01:28)
[2018-03-01 04:58] LABS: Band 3 % (5-11); Eosinophils 3 % (0-10); Hemoglobin 8.4 g/dL (14.0-18.0); Lymphocytes 46 % (21-51); MDiff Complete? YES; Mean Corpuscular HGB CONC 33.3 g/dL (32.0-36.0); Mean Corpuscular Hemoglobin 32.4 pg (27.0-31.0); Mean Corpuscular Volume 97.3 fL (78.0-98.0); Mean Platelet Volume 7.9 fL (7.4-10.4); Metamyelocyte 1 % (0-0); Monocytes 3 % (0-10); Neutrophil 44 % (42-75); PLT Morphology Comment Appears Adequate; Platelet Count 182 thou/uL (130-400); RBC Distribution Width 13.9 % (11.5-14.5); Red Blood Cell (RBC) Count 2.59 mill/uL (4.70-6.10); White Blood Cell (WBC) Count 5.4 thou/uL (4.8-10.8)
[2018-03-01 05:06] LABS: Anion Gap 9 mmol/L (10-20); BUN (Urea Nitrogen) 35 mg/dL (8.4-25.7); Calc. Creatinine Clearance 60 mL/min (70-130); Calcium 8.2 mg/dL (7.8-10.44); Carbon Dioxide 25 mmol/L (23-31); Chloride 113 mmol/L (98-107); Estimated GFR-MDRD 54; Glucose 116 mg/dL (83-110); Potassium 3.1 mmol/L (3.5-5.1); Sodium 144 mmol/L (136-145)
[2018-03-01] MEDS: Carbidopa/Levodopa 25-100 mg Tablet PO SCH ×4 (06:30→18:27)
[2018-03-01] MEDS ORDERED: Docusate 100 MG CAP PO SCH (09:00)
[2018-03-01] MEDS ORDERED: Non-Formulary Item 1 EACH (Cyanocobalamin (Vitamin B-12) [Vitamin B-12] 1,000 MCG) PO SCH (09:00)
[2018-03-01] MEDS: Docusate 100 MG CAP PO SCH (09:13)
[2018-03-01] MEDS: Folic Acid 1 MG TAB PO SCH (09:13)
[2018-03-01] MEDS: Diltiazem HCl SR 90 mg Capsule PO SCH ×4 (09:13→21:16)
[2018-03-01] MEDS: Hydrochlorothiazide 25 MG TAB PO SCH (09:13)
[2018-03-01] MEDS: Clopidogrel Bisulfate 75 MG TAB PO SCH (09:13)
[2018-03-01] MEDS: Ferrous Sulfate 325 MG TAB PO SCH ×3 (09:13→18:37)
[2018-03-01] MEDS: Atorvastatin Calcium 10 MG TAB PO SCH (09:13)
[2018-03-01] MEDS: Amantadine HCl 100 mg Capsule PO SCH (09:14)
[2018-03-01] MEDS: Cyanocobalamin (Vitamin B-12) 1,000 MCG TAB PO SCH (09:14)
[2018-03-01] MEDS: Famotidine/PF 20 mg/2ml Vial SLOW IVP SCH (09:24)
--- NOTE | 2018-03-01 11:47 | PDOC.PN ---
- Subjective Encounter Start Date: 03/01/18 Encounter Start Time: 11:46 Mr. Fitzgerald was seen today in follow-up of Urinary retention, and UTI. His primary concern is for back pain, he says it is worse " when they work with me" . Urine in the Rojas is clear. - Objective Resuscitation Status: Resuscitation Status FULL:Full Resuscitation MAR Reviewed: Yes Vital Signs & Weight: Vital Signs (12 hours) Temp Pulse Resp BP BP Pulse Ox 03/01/18 07:21 98.4 F 75 18 124/60 98 03/01/18 03:47 97.7 F 69 12 118/56 L 98 Weight Weight 211 lb 12.8 oz I&O: 02/28/18 03/01/18 03/02/18 06:59 06:59 06:59 Intake Total 790 1330 Output Total 3650 4775 Balance -2689 -8198 Result Diagrams: 03/01/18 04:32 03/01/18 04:32 Phys Exam - Physical Examination HEENT: PERRLA, sclera anicteric Respiratory: no wheezing, no rales, no rhonchi, clear to auscultation bilateral Cardiovascular: RRR, no rub 3/6 blowing murmur, to carotids, no gallop Gastrointestinal: soft, non-tender, no distention, positive bowel sounds Musculoskeletal: no edema, pulses present Neurological: non-focal, normal sensation, moves all 4 limbs Dx/Plan (1) UTI (urinary tract infection) Status: Acute Qualifiers: Urinary tract infection type: site unspecified Hematuria presence: without hematuria Qualified Code(s): N39.0 - Urinary tract infection, site not specified Comment: suspected given obstructive uropathy, continue Rocephin pending final Ucx results (2) Obstructive uropathy Code(s): N13.9 - OBSTRUCTIVE AND REFLUX UROPATHY, UNSPECIFIED Status: Acute Comment: Likely due to prostatic hypertrophy in addition to recent ischemic CVA , Urology consult, Rojas catheter (3) Low back pain Code(s): M54.5 - LOW BACK PAIN Status: Acute (4) Hypertension Code(s): I10 - ESSENTIAL (PRIMARY) HYPERTENSION Status: Chronic (5) Aortic stenosis Code(s): I35.0 - NONRHEUMATIC AORTIC (VALVE) STENOSIS Status: Chronic (6) Essential (primary) hypertension Code(s): I10 - ESSENTIAL (PRIMARY) HYPERTENSION Status: Chronic (7) Parkinson disease Code(s): G20 - PARKINSON'S DISEASE Status: Chronic (8) Atrial fibrillation with controlled ventricular rate Code(s): I48.91 - UNSPECIFIED ATRIAL FIBRILLATION Status: Chronic - Plan * UTI- he is symptomatically improved- Urine culture was not sent- will continue Rocephin * Obstructive Uropathy- will await further recommendations from Dr. Blas- continue flomax, and Rojas catheter * Back pain- In discussing with the patient's daughter he has been non- ambulatory for since he feel a few months ago, along with the urinary retention - will check an MRI of the Lumbar spine- a CT scan was done, but more detail regarding spinal stenosis can be achieved with an MRI * HTN- blood pressure is stable * AFIB- his heart rate is stable- continue Pradaxa/ Diltiazem * - severe- clinically stable * CAD- and recent STENT in December- stable- continue home medications.
[2018-03-01 15:40] VITALS: BMI 25.7
--- NOTE | 2018-03-01 15:44 | MRI ---
LUMBAR SPINE MRI WITHOUT IV CONTRAST: HISTORY: An 83-year-old male with a history of back pain, urinary retention, trouble walking, and weakness for several months. FINDINGS: Multiplanar, multisequence MRI examination of the lumbar spine is performed. Conus medullaris region is unremarkable terminating at L1. L1-L2 and L2-L3 disks demonstrate some desiccation change but no significant canal, lateral recess, o r foraminal stenosis. At L3-L4, there is a prominent central protrusion with moderate thecal sac compression and resultant central canal and lateral recess stenosis, worse on the right side with mild to moderate bilateral fo raminal stenosis. At L4-L5, there is marked narrowing of the disk with some minimal type I end plate changes. There is some mild left lateral recess stenosis and marked left foraminal stenosis and moderate to severe rig ht foraminal stenosis. At L5-S1, generalized disk bulging with mild central canal and left lateral recess stenosis with mode rate bilateral foraminal stenosis. IMPRESSION: Multilevel variable severity canal, lateral recess, and foraminal stenosis. Type I end plate changes at L4-L5. POS: LISA
--- NOTE | 2018-03-01 17:00 | PRG ---
DATE OF SERVICE: 03/01/2018 SUBJECTIVE: An 83-year-old gentleman, who is being seen for acute kidney injury. The patient denies any nausea, vomiting or chest pain. PHYSICAL EXAMINATION: GENERAL: Patient is awake, alert. VITAL SIGNS: Afebrile, pulse 71, breathing 16, blood pressure 130-80. GENERAL APPEARANCE AND MENTAL STATUS: Fair. HEAD/NECK: Normocephalic. Atraumatic. EYES: EOMI. No deformity. EARS: Clear. No ulcers. NOSE: Intact. No lesions. MOUTH: Clear. No discharge. THROAT: Clear. No exudate. LUNGS: Clear. No crackles. CARDIAC: S1, S2. No rub. ABDOMEN: Benign. BS+. GENITALIA/RECTUM: Rojas absent. BACK/EXTREMITIES: Edema 0+ Ulcer- NEUROLOGICAL: Alert and motor intact. SKIN: Rash- Bruise- LYMPHATICS: Edema- Ulcer- LABORATORY DATA: Show hemoglobin 8.4, creatinine 1.2. ASSESSMENT AND RECOMMENDATIONS: 1. Acute kidney injury. 2. Hypertension, stable. 3. Hypokalemia. Recommend 40 mEq of potassium to replace. 4. Anemia. Recommend Epogen. 5. Medication based on glomerular filtration rate are appropriate. I will sign off on this patient. The patient can see me in 1 month. MTDD
[2018-03-01] MEDS: Tamsulosin HCl 0.4 MG CAP PO SCH (21:15)
--- NOTE | 2018-03-01 22:25 | EKG ---
Test Reason : Blood Pressure : / mmHG Vent. Rate : 093 BPM Atrial Rate : 258 BPM P-R Int : 000 ms QRS Dur : 092 ms QT Int : 356 ms P-R-T Axes : 000 007 266 degrees QTc Int : 442 ms Atrial fibrillation with a competing junctional pacemaker Abnormal ECG Confirmed by SABIHA GARCIA DO ([id number]), editor dictionary GLORIA GONZALES ([id number]) on 03/01/2018 10:25:10 PM Referred By: Confirmed By:SABIHA GARCIA DO
[2018-03-02] MEDS: cefTRIAXone\\ROCEPHIN 1 GM in Sodium Chloride 0.9% 100 ML IVPB SCH (01:54)
[2018-03-02 05:07] LABS: #Eosinphils 0.2 thou/uL (0.0-0.7); #Monocytes 0.4 thou/uL (0.11-0.59); #Neutrophils 2.9 thou/uL (1.40-6.50); %Basophils 0.3 % (0.0-1.0); %Eosinophils 4.3 % (0.0-10.0); %Lymphocytes 36.3 % (21.0-51.0); %Monocytes 7.2 % (0.0-10.0); %Neutrophils 51.9 % (42.0-75.0); Hemoglobin 8.5 g/dL (14.0-18.0); Mean Corpuscular HGB CONC 33.6 g/dL (32.0-36.0); Mean Corpuscular Hemoglobin 32.5 pg (27.0-31.0); Mean Corpuscular Volume 96.6 fL (78.0-98.0); Mean Platelet Volume 7.8 fL (7.4-10.4); Platelet Count 153 thou/uL (130-400); Red Blood Cell (RBC) Count 2.62 mill/uL (4.70-6.10); White Blood Cell (WBC) Count 5.5 thou/uL (4.8-10.8)
[2018-03-02 05:14] LABS: Anion Gap 9 mmol/L (10-20); BUN (Urea Nitrogen) 22 mg/dL (8.4-25.7); Calc. Creatinine Clearance 73 mL/min (70-130); Calcium 8.2 mg/dL (7.8-10.44); Carbon Dioxide 26 mmol/L (23-31); Chloride 111 mmol/L (98-107); Estimated GFR-MDRD 73; Glucose 150 mg/dL (83-110); Potassium 3.3 mmol/L (3.5-5.1); Sodium 143 mmol/L (136-145)
[2018-03-02] MEDS: Carbidopa/Levodopa 25-100 mg Tablet PO SCH ×4 (08:55→18:10)
[2018-03-02] MEDS: Folic Acid 1 MG TAB PO SCH (08:55)
[2018-03-02] MEDS: Hydrochlorothiazide 25 MG TAB PO SCH (08:55)
[2018-03-02] MEDS: Atorvastatin Calcium 10 MG TAB PO SCH (08:55)
[2018-03-02] MEDS: Ferrous Sulfate 325 MG TAB PO SCH ×2 (08:56→16:29)
[2018-03-02] MEDS: Famotidine/PF 20 mg/2ml Vial SLOW IVP SCH (08:56)
[2018-03-02] MEDS: Clopidogrel Bisulfate 75 MG TAB PO SCH (08:56)
[2018-03-02] MEDS: Docusate 100 MG CAP PO SCH (08:56)
[2018-03-02] MEDS: Amantadine HCl 100 mg Capsule PO SCH (08:56)
[2018-03-02] MEDS: Cyanocobalamin (Vitamin B-12) 1,000 MCG TAB PO SCH (08:56)
[2018-03-02] MEDS: Diltiazem HCl SR 90 mg Capsule PO SCH ×4 (08:59→20:19)
--- NOTE | 2018-03-02 11:03 | PDOC.PN ---
- Subjective Encounter Start Date: 03/02/18 Encounter Start Time: 11:01 Mr. Fitzgerald was seen today in follow-up of UTI. He is laying in bed, and says he is sleepy. He deos not report any other complaints. - Objective Resuscitation Status: Resuscitation Status FULL:Full Resuscitation MAR Reviewed: Yes Vital Signs & Weight: Vital Signs (12 hours) Temp Pulse Resp BP Pulse Ox 03/02/18 08:35 97.7 F 70 18 98 03/02/18 07:30 97.7 F 70 18 128/58 L 97 03/02/18 04:40 96.9 F L 81 17 117/56 L 98 03/02/18 04:30 97.8 F 93 16 118/72 100 Weight Admit Weight 217 lb 9.6 oz Weight 203 lb I&O: 03/01/18 03/02/18 03/03/18 06:59 06:59 06:59 Intake Total 1330 1420 Output Total 4775 1650 Balance -3445 -230 Result Diagrams: 03/02/18 04:24 03/02/18 04:24 Phys Exam - Physical Examination HEENT: PERRLA Respiratory: no wheezing, no rales, no rhonchi, clear to auscultation bilateral Cardiovascular: no rub, irregular 2/6 systolic murmur , no gallop Gastrointestinal: soft, non-tender, no distention, positive bowel sounds Musculoskeletal: edema present 1+ pitting edema in both lower extremities Dx/Plan (1) UTI (urinary tract infection) Status: Acute Qualifiers: Urinary tract infection type: site unspecified Hematuria presence: without hematuria Qualified Code(s): N39.0 - Urinary tract infection, site not specified Comment: suspected given obstructive uropathy, continue Rocephin pending final Ucx results (2) Obstructive uropathy Code(s): N13.9 - OBSTRUCTIVE AND REFLUX UROPATHY, UNSPECIFIED Status: Acute Comment: Likely due to prostatic hypertrophy in addition to recent ischemic CVA , Urology consult, Rojas catheter (3) Lumbar spinal stenosis Code(s): M48.061 - SPINAL STENOSIS, LUMBAR REGION WITHOUT NEUROGENIC LESLIE Status: Chronic (4) Low back pain Code(s): M54.5 - LOW BACK PAIN Status: Chronic Comment: Due to above- Lumbar spinal stenosis at L4-L5 (5) Hypertension Code(s): I10 - ESSENTIAL (PRIMARY) HYPERTENSION Status: Chronic (6) Aortic stenosis Code(s): I35.0 - NONRHEUMATIC AORTIC (VALVE) STENOSIS Status: Chronic (7) Essential (primary) hypertension Code(s): I10 - ESSENTIAL (PRIMARY) HYPERTENSION Status: Chronic (8) Atrial fibrillation with controlled ventricular rate Code(s): I48.91 - UNSPECIFIED ATRIAL FIBRILLATION Status: Chronic (9) Parkinson disease Code(s): G20 - PARKINSON'S DISEASE Status: Chronic - Plan * UTI- urine culture not performed- he seems to be improving with Rocephin- will continue * Obstructive Uropathy- continue Rojas catheter- This is likely multi-factoral- from BPH, recent fall, and conscious sedating medications for STENT placement, as well as umbar spinal stenosis- Urology evaluation is in progress * Lumbar Spinal stenosis- continue PT/OT- I doubt he would make a good surgical candidate, given his recent STENT placement for NSTEMI, severe , with valve area less than 1.0, and deconditioning, and advanced Parkinson's disease * Atrial Fibrillation- continue Cardizem and Pradaxa * - severe- chronic and his Head Refrigerating Engineer is aware * HTN- blood pressure is stable * CAD- stable * Hopefully home on tere antibiotics in 1-2 days- likely with Rojas.
[2018-03-02] MEDS: Tamsulosin HCl 0.4 MG CAP PO SCH (20:19)
[2018-03-03] MEDS: cefTRIAXone\\ROCEPHIN 1 GM in Sodium Chloride 0.9% 100 ML IVPB SCH (00:41)
[2018-03-03] MEDS: Cyanocobalamin (Vitamin B-12) 1,000 MCG TAB PO SCH (08:50)
[2018-03-03] MEDS: Docusate 100 MG CAP PO SCH (08:50)
[2018-03-03] MEDS: Ferrous Sulfate 325 MG TAB PO SCH ×2 (08:50→16:04)
[2018-03-03] MEDS: Famotidine/PF 20 mg/2ml Vial SLOW IVP SCH (08:50)
[2018-03-03] MEDS: Diltiazem HCl SR 90 mg Capsule PO SCH ×4 (08:50→20:34)
[2018-03-03] MEDS: Hydrochlorothiazide 25 MG TAB PO SCH (08:50)
[2018-03-03] MEDS: Amantadine HCl 100 mg Capsule PO SCH (08:50)
[2018-03-03] MEDS: Carbidopa/Levodopa 25-100 mg Tablet PO SCH ×4 (08:50→20:34)
[2018-03-03] MEDS: Atorvastatin Calcium 10 MG TAB PO SCH (08:50)
[2018-03-03] MEDS: Clopidogrel Bisulfate 75 MG TAB PO SCH (08:50)
[2018-03-03] MEDS: Folic Acid 1 MG TAB PO SCH (08:50)
--- NOTE | 2018-03-03 12:47 | PDOC.PN ---
- Subjective Encounter Start Date: 03/03/18 Encounter Start Time: 12:45 Mr. Fitzgerald was seen today in follow-up of UTI, and obstructive Uropathy. He does not have any complaints. He is sitting up in bed eating. - Objective Resuscitation Status: Resuscitation Status FULL:Full Resuscitation MAR Reviewed: Yes Vital Signs & Weight: Vital Signs (12 hours) Temp Pulse Resp BP Pulse Ox 03/03/18 08:45 96.5 F L 77 16 134/72 97 03/03/18 08:40 96.5 F L 77 16 97 03/03/18 04:00 97.3 F L 72 12 123/68 99 Weight Admit Weight 217 lb 9.6 oz Weight 206 lb 4 oz I&O: 03/02/18 03/03/18 03/04/18 06:59 06:59 06:59 Intake Total 1420 1300 Output Total 1650 1150 Balance -230 150 Result Diagrams: 03/02/18 04:24 03/02/18 04:24 Phys Exam - Physical Examination HEENT: PERRLA Respiratory: no wheezing, no rales, no rhonchi, clear to auscultation bilateral Cardiovascular: RRR, no significant murmur, no rub Gastrointestinal: soft, non-tender, no distention, positive bowel sounds Musculoskeletal: no edema Dx/Plan (1) UTI (urinary tract infection) Status: Acute Qualifiers: Urinary tract infection type: site unspecified Hematuria presence: without hematuria Qualified Code(s): N39.0 - Urinary tract infection, site not specified Comment: suspected given obstructive uropathy, continue Rocephin pending final Ucx results (2) Obstructive uropathy Code(s): N13.9 - OBSTRUCTIVE AND REFLUX UROPATHY, UNSPECIFIED Status: Acute Comment: Likely due to prostatic hypertrophy in addition to recent ischemic CVA , Urology consult, Rojas catheter (3) Lumbar spinal stenosis Code(s): M48.061 - SPINAL STENOSIS, LUMBAR REGION WITHOUT NEUROGENIC LESLIE Status: Chronic (4) Low back pain Code(s): M54.5 - LOW BACK PAIN Status: Chronic Comment: Due to above- Lumbar spinal stenosis at L4-L5 (5) Hypertension Code(s): I10 - ESSENTIAL (PRIMARY) HYPERTENSION Status: Chronic (6) Aortic stenosis Code(s): I35.0 - NONRHEUMATIC AORTIC (VALVE) STENOSIS Status: Chronic (7) Essential (primary) hypertension Code(s): I10 - ESSENTIAL (PRIMARY) HYPERTENSION Status: Chronic (8) Atrial fibrillation with controlled ventricular rate Code(s): I48.91 - UNSPECIFIED ATRIAL FIBRILLATION Status: Chronic (9) Parkinson disease Code(s): G20 - PARKINSON'S DISEASE Status: Chronic - Plan * UTI- continue Rocephin pending further recommendations from Urology * Obstructive Uropathy- will continue Rojas catheter for now pending further recommendations * Hematuria- will hold Pradaxa, today, and re-evaluate- possibly due to Rojas trauma * Lumbar Spinal stenosis- continue PT/OT . * HTN- blood pressure is stable * Aortic Stenosis- severe This is chronic and his Cruise Coordinator is aware- this can be followed up as an outpatient
[2018-03-03] MEDS: Tamsulosin HCl 0.4 MG CAP PO SCH (20:35)
[2018-03-04] MEDS: cefTRIAXone\\ROCEPHIN 1 GM in Sodium Chloride 0.9% 100 ML IVPB SCH (01:48)
[2018-03-04] MEDS: Carbidopa/Levodopa 25-100 mg Tablet PO SCH ×2 (11:12→14:26)
[2018-03-04] MEDS: Hydrochlorothiazide 25 MG TAB PO SCH (11:12)
[2018-03-04] MEDS: Amantadine HCl 100 mg Capsule PO SCH (11:13)
[2018-03-04] MEDS: Ferrous Sulfate 325 MG TAB PO SCH (11:13)
[2018-03-04] MEDS: Folic Acid 1 MG TAB PO SCH (11:13)
[2018-03-04] MEDS: Atorvastatin Calcium 10 MG TAB PO SCH (11:14)
[2018-03-04] MEDS: Famotidine/PF 20 mg/2ml Vial SLOW IVP SCH (11:15)
[2018-03-04] MEDS: Clopidogrel Bisulfate 75 MG TAB PO SCH (11:15)
[2018-03-04] MEDS: Docusate 100 MG CAP PO SCH (11:15)
[2018-03-04] MEDS: Cyanocobalamin (Vitamin B-12) 1,000 MCG TAB PO SCH (11:15)
[2018-03-04 13:33] VITALS: BP 113/67; TEMP 98.3
--- NOTE | 2018-03-04 15:02 | PDOC.PN ---
- Subjective Encounter Start Date: 03/04/18 Encounter Start Time: 15:00 Mr. Fitzgerald was seen today in follow-up of complicated UTI. He does not have any complaints. - Objective Resuscitation Status: Resuscitation Status FULL:Full Resuscitation MAR Reviewed: Yes Vital Signs & Weight: Vital Signs (12 hours) Temp Pulse Pulse Resp BP BP BP 03/04/18 12:20 98.3 F 94 16 113/67 03/04/18 08:10 94 136/61 03/04/18 07:10 98.3 F 72 16 123/72 03/04/18 03:44 97.2 F L 52 L 18 118/64 Pulse Ox Pulse Ox 03/04/18 12:20 94 L 03/04/18 08:10 97 03/04/18 07:10 98 03/04/18 03:44 98 Weight Admit Weight 217 lb 9.6 oz Weight 206 lb 4 oz I&O: 03/03/18 03/04/18 03/05/18 06:59 06:59 06:59 Intake Total 1300 1080 Output Total 1150 1350 Balance 150 -270 Result Diagrams: 03/02/18 04:24 03/02/18 04:24 Phys Exam - Physical Examination HEENT: PERRLA Respiratory: no wheezing, no rales, no rhonchi, clear to auscultation bilateral Cardiovascular: RRR, no significant murmur, no rub Gastrointestinal: soft, non-tender, no distention, positive bowel sounds Musculoskeletal: edema present trace pedal edema Dx/Plan (1) UTI (urinary tract infection) Status: Acute Qualifiers: Urinary tract infection type: site unspecified Hematuria presence: without hematuria Qualified Code(s): N39.0 - Urinary tract infection, site not specified Comment: suspected given obstructive uropathy, continue Rocephin pending final Ucx results (2) Obstructive uropathy Code(s): N13.9 - OBSTRUCTIVE AND REFLUX UROPATHY, UNSPECIFIED Status: Acute Comment: Likely due to prostatic hypertrophy in addition to recent ischemic CVA , Urology consult, Rojas catheter (3) Lumbar spinal stenosis Code(s): M48.061 - SPINAL STENOSIS, LUMBAR REGION WITHOUT NEUROGENIC LESLIE Status: Chronic (4) Low back pain Code(s): M54.5 - LOW BACK PAIN Status: Chronic Comment: Due to above- Lumbar spinal stenosis at L4-L5 (5) Hypertension Code(s): I10 - ESSENTIAL (PRIMARY) HYPERTENSION Status: Chronic (6) Aortic stenosis Code(s): I35.0 - NONRHEUMATIC AORTIC (VALVE) STENOSIS Status: Chronic (7) Essential (primary) hypertension Code(s): I10 - ESSENTIAL (PRIMARY) HYPERTENSION Status: Chronic (8) Atrial fibrillation with controlled ventricular rate Code(s): I48.91 - UNSPECIFIED ATRIAL FIBRILLATION Status: Chronic (9) Parkinson disease Code(s): G20 - PARKINSON'S DISEASE Status: Chronic - Plan * UTI- complicated - will change him to Omnicef, anddiscussed with Dr. Blas- he will need to leave the Rojas in place for the Obstructive Uropathy * Lumbar spinal Stenosis- continue PT/OT * Stable for discharge home * .
--- NOTE | 2018-03-05 00:57 | DIS ---
DATE OF ADMISSION: 02/27/2018 DATE OF DISCHARGE: 03/04/2018 PRIMARY CARE PHYSICIAN: Geoffrey Paulino D.O. DISCHARGE DISPOSITION: Home primary to the [facility]. DISCHARGE DIAGNOSES: 1. Complicated urinary tract infection. 2. Obstructive uropathy. 3. History of advanced Parkinson's disease. 4. Lumbar spinal stenosis. 5. Severe aortic stenosis. 6. Coronary artery disease with recent stent placement. 7. Chronic atrial fibrillation. DISCHARGE MEDICATIONS: Include Flomax 0.4 mg at bedtime, Seroquel 12.5 mg at bedtime, MiraLax 17 gra ms as needed, folic acid 1 mg daily, Pepcid 20 mg twice a day, diltiazem 90 mg q.i.d., Pradaxa 150 mg twice daily, Plavix 75 mg daily, Omnicef 300 mg twice a day, Sinemet 1.5 tablets 4 times a day, Lipi tor 10 mg at bedtime, aspirin 81 mg daily, docusate 100 mg daily, vitamin B12 of 1000 mcg daily, and amantadine 100 mg daily. CODE STATUS: FULL CODE. ALLERGIES: BETA BLOCKERS. PROCEDURES DONE DURING ADMISSION: The patient had a CT scan of the abdomen and pelvis and this was s ignificant for moderate bilateral obstructive uropathy likely due to bladder outlet obstruction, give n the bladder was distended. There was no evidence of any obstructing mass or calculus in either int ra or extra renal collecting system. HOSPITAL COURSE: Mr. Fitzgerald is a pleasant 83-year-old gentleman was admitted to the hospital after he was having difficulty urinating in the snf. They tried to straight cath him and only a sma ll amount of dark urine came out. They sent him over to the emergency room, where he was admitted fo r a complicated urinary tract infection due to obstructive uropathy. He was evaluated by Urology. I t is noted that he has had problems off and on with bladder obstruction in the past and Roajs cathete r was placed and it was instructed that he leaves this end and its some other time, they can determin e whether or not the Rojas can be removed. He has a history of BPH. He also has had recent stent pl acement and is virtually bedbound as a result of lumbar spinal disease and it is likely that this com bination of factors contribute to his obstructive uropathy. Patient also has severe aortic stenosis. This could be further evaluated as an outpatient. His international account manager is aware of the aortic stenosis and he does have an appointment planned in the next couple of weeks to address this. During his hos pital stay, he did not have any symptoms attributed to critical aortic stenosis.
== END 2018-03-04 16:23 | DRG 725 ==
LOC: ERS 14:05 → 2NO 19:28
PROVIDERS: ADMIT Internal Medicine; ATTEND Internal Medicine
PROC: 0T9B70Z Drainage of Bladder with Drainage Device, Via Natural or Artificial Opening (ICD-10-PCS; principal; 2018-02-27)
DX: N40.1 Benign prostatic hyperplasia with lower urinary tract symptoms (principal); N17.0 Acute kidney failure with tubular necrosis; N13.8 Other obstructive and reflux uropathy; I12.0 Hypertensive chronic kidney disease with stage 5 chronic kidney disease or end stage renal disease; N18.5 Chronic kidney disease, stage 5; N39.0 Urinary tract infection, site not specified; E46 Unspecified protein-calorie malnutrition; N13.39 Other hydronephrosis; R33.8 Other retention of urine; R31.0 Gross hematuria; D50.9 Iron deficiency anemia, unspecified; E87.6 Hypokalemia; I35.0 Nonrheumatic aortic (valve) stenosis; G20 Parkinson's disease; F02.80 Dementia in other diseases classified elsewhere, unspecified severity, without behavioral disturbance, psychotic disturbance, mood disturbance, and anxiety; M48.061 Spinal stenosis, lumbar region without neurogenic claudication; I69.398 Other sequelae of cerebral infarction; I48.2 Chronic atrial fibrillation; G89.29 Other chronic pain; I25.2 Old myocardial infarction; Z68.25 Body mass index [BMI] 25.0-25.9, adult; Z79.01 Long term (current) use of anticoagulants; Z79.82 Long term (current) use of aspirin; Z95.5 Presence of coronary angioplasty implant and graft
CPT/HCPCS: 36415; 51703; 72148; 74176; 80048; 80053; 80069; 81003; 81015; 82274; 82553; 82728; 83540; 83550; 83690; 83880; 84484; 85007; 85025; 85027; 93005; 96360; 96361; A4216; G8978-GP-CL; G8979-GP-CJ; G8987-GO-CL; G8988-GO-CJ; J0696; J7050; S0028

== ENCOUNTER 2018-03-09 10:55 | Emergency (ER) | payer MEDICARE, BC ==
[2018-03-09 12:55] LABS: #Eosinphils 0.2 thou/uL (0.0-0.7); #Monocytes 0.5 thou/uL (0.11-0.59); #Neutrophils 2.9 thou/uL (1.40-6.50); %Basophils 0.8 % (0.0-1.0); %Eosinophils 2.7 % (0.0-10.0); %Lymphocytes 35.9 % (21.0-51.0); %Monocytes 9.4 % (0.0-10.0); %Neutrophils 51.2 % (42.0-75.0); Hemoglobin 9.3 g/dL (14.0-18.0); Mean Corpuscular Hemoglobin 32.8 pg (27.0-31.0); Mean Corpuscular Volume 96.5 fL (78.0-98.0); Mean Platelet Volume 7.7 fL (7.4-10.4); Platelet Count 191 thou/uL (130-400); RBC Distribution Width 14.8 % (11.5-14.5); Red Blood Cell (RBC) Count 2.84 mill/uL (4.70-6.10); White Blood Cell (WBC) Count 5.7 thou/uL (4.8-10.8)
[2018-03-09 12:59] LABS: Bilirubin Small (Negative); Blood, Urine Large (Negative); Clarity CLOUDY (Clear); Glucose, Urine (Dipstick) Negative (Negative); Leukocyte Small (Negative); Nitrite Negative (Negative); Protein, Urine (Dipstick) 100 mg/dL (Neg-Trace); Specific Gravity, Urine 1.018 (1.002-1.036)
[2018-03-09 13:00] LABS: Bacteria/HPF None Seen HPF (None Seen); RBC/HPF GREATER THAN 50-TNTC HPF (0-3); Squamous Epithelial 0-3 HPF (0-3)
[2018-03-09 13:02] LABS: Hyaline Casts/LPF 0-3 HYALINE CAST LPF (0-3 Hyaline)
[2018-03-09 13:05] LABS: Manual Microscopic Reviewed? No Path Casts Seen; Renal Epithelial None Seen HPF (0-3); Transitional Epithelial NONE SEEN HPF (0-3)
[2018-03-09 13:17] LABS: ALT (SGPT) Less than 7 U/L (8-55); AST (SGOT) 15 U/L (5-34); Albumin 2.5 g/dL (3.4-4.8); Alkaline Phosphatase 87 U/L (40-150); Anion Gap 13 mmol/L (10-20); BUN (Urea Nitrogen) 18 mg/dL (8.4-25.7); Bilirubin, Total 1.6 mg/dL (0.2-1.2); Calc. Creatinine Clearance 0 mL/min (70-130); Calcium 8.5 mg/dL (7.8-10.44); Carbon Dioxide 21 mmol/L (23-31); Chloride 109 mmol/L (98-107); Estimated GFR-MDRD 81; Globulin 3.4 g/dL (2.4-3.5); Glucose 108 mg/dL (83-110); Potassium 3.2 mmol/L (3.5-5.1); Protein, Total 5.9 g/dL (5.8-8.1); Sodium 140 mmol/L (136-145)
[2018-03-09] MEDS ORDERED: Potassium Bicarbonate/Cit Ac 25 MEQ TAB ONE (14:16)
[2018-03-09] MEDS ORDERED: cefTRIAXone\\ROCEPHIN 1 GM VIAL ONE (14:16)
[2018-03-09] MEDS ORDERED: Acetaminophen 500 MG TAB ONE (14:21)
== END 2018-03-09 15:29 ==
LOC: ERS 10:55
DX: Z46.6 Encounter for fitting and adjustment of urinary device (principal); N39.0 Urinary tract infection, site not specified; N40.1 Benign prostatic hyperplasia with lower urinary tract symptoms; R33.8 Other retention of urine; E87.6 Hypokalemia; I10 Essential (primary) hypertension; N40.0 Benign prostatic hyperplasia without lower urinary tract symptoms; Z79.899 Other long term (current) drug therapy; Z79.82 Long term (current) use of aspirin
CPT/HCPCS: 36415; 51702; 80053; 81003; 81015; 85025; 87086; 96365; J0696

== ENCOUNTER 2018-03-11 21:45 | Emergency (ER) | payer MEDICARE, BC ==
[2018-03-11 22:32] LABS: Bilirubin Moderate (Negative); Blood, Urine Large (Negative); Clarity TURBID (Clear); Glucose, Urine (Dipstick) Negative (Negative); Leukocyte Large (Negative); Nitrite Negative (Negative); Protein, Urine (Dipstick) 100 mg/dL (Neg-Trace); Specific Gravity, Urine 1.025 (1.002-1.036); pH, Urine 5.5 (5.0-9.0)
[2018-03-11 22:34] LABS: Bacteria/HPF None Seen HPF (None Seen); Squamous Epithelial 0-3 HPF (0-3)
[2018-03-11 22:37] LABS: Pathc Cast-AUWi Flag 8.98 (0-2.49)
[2018-03-11 22:38] LABS: Hyaline Casts/LPF 0-3 HYALINE CAST LPF (0-3 Hyaline); Yeast-All Forms 4+ HPF (None Seen)
[2018-03-11] MEDS ORDERED: cefTRIAXone\\ROCEPHIN 1 GM VIAL ONE (23:02)
[2018-03-11 23:11] LABS: #Eosinphils 0.2 thou/uL (0.0-0.7); #Lymphocytes 2.2 thou/uL (1.20-3.40); #Monocytes 0.7 thou/uL (0.11-0.59); #Neutrophils 3.7 thou/uL (1.40-6.50); %Basophils 0.6 % (0.0-1.0); %Eosinophils 3.5 % (0.0-10.0); %Lymphocytes 32.2 % (21.0-51.0); %Monocytes 9.6 % (0.0-10.0); %Neutrophils 54.1 % (42.0-75.0); Hemoglobin 9.3 g/dL (14.0-18.0); Mean Corpuscular HGB CONC 32.7 g/dL (32.0-36.0); Mean Corpuscular Hemoglobin 32.1 pg (27.0-31.0); Mean Corpuscular Volume 97.9 fL (78.0-98.0); Mean Platelet Volume 7.9 fL (7.4-10.4); Platelet Count 184 thou/uL (130-400); RBC Distribution Width 15.1 % (11.5-14.5); White Blood Cell (WBC) Count 6.8 thou/uL (4.8-10.8)
--- NOTE | 2018-03-11 23:12 | CT ---
CT BRAIN 03/11/18 HISTORY: Trauma. Head injury. Noncontrast enhanced CT images of the brain is obtained. Brain and bone windows obtained. CT images o f the brain demonstrate the brain to be unremarkable. No evidence of acute intracranial masses, hemor rhages, strokes, or contusions seen. Some old encephalomalacic changes seen in the right parietal reg ion unchanged since the previous comparison CT from 01/24/18. IMPRESSION: No evidence of acute intracranial pathology seen. POS: KIMBER
[2018-03-11 23:31] LABS: ALT (SGPT) Less than 7 U/L (8-55); AST (SGOT) 19 U/L (5-34); Albumin 2.6 g/dL (3.4-4.8); Alkaline Phosphatase 85 U/L (40-150); Anion Gap 13 mmol/L (10-20); BUN (Urea Nitrogen) 23 mg/dL (8.4-25.7); Bilirubin, Total 1.7 mg/dL (0.2-1.2); Calc. Creatinine Clearance 0 mL/min (70-130); Calcium 8.7 mg/dL (7.8-10.44); Carbon Dioxide 20 mmol/L (23-31); Chloride 109 mmol/L (98-107); Estimated GFR-MDRD 63; Globulin 3.6 g/dL (2.4-3.5); Glucose 104 mg/dL (83-110); Potassium 3.4 mmol/L (3.5-5.1); Protein, Total 6.2 g/dL (5.8-8.1); Sodium 139 mmol/L (136-145)
== END 2018-03-12 00:21 | disposition home or self-care (01) ==
LOC: ERS 21:45
DX: Z04.3 Encounter for examination and observation following other accident (principal); N39.0 Urinary tract infection, site not specified; I10 Essential (primary) hypertension; Z79.899 Other long term (current) drug therapy; Z79.82 Long term (current) use of aspirin
CPT/HCPCS: 36415; 70450; 80053; 81003; 81015; 83605; 85025; 87086; 93005; 96365; J0696

== ENCOUNTER 2018-03-15 22:59 | Emergency (ER) | payer MEDICARE, BC ==
--- NOTE | 2018-03-16 00:06 | CT ---
CT OF BRAIN PERFORMED WITHOUT CONTRAST ENHANCEMENT: 03/15/18 COMPARISON: 03/11/18 study. HISTORY: Patient had a fall with head injury. There is some generalized ventricular and sulcal prominence. There is decreased attenuation to the pe riventricular white matter. Somewhat asymmetrically involving the right posterior frontoparietal rafy on. This is a stable finding. There is no signs of intracerebral hemorrhage or extra-axial fluid damari ections. Mastoid air cells and visualized sinuses are clear. IMPRESSION: No acute intracranial abnormalities. POS: LISA
== END 2018-03-16 01:18 | disposition home or self-care (01) ==
LOC: ERS 22:59
DX: Z04.3 Encounter for examination and observation following other accident (principal); I10 Essential (primary) hypertension; I48.91 Unspecified atrial fibrillation; N40.0 Benign prostatic hyperplasia without lower urinary tract symptoms; F41.9 Anxiety disorder, unspecified; F32.9 Major depressive disorder, single episode, unspecified; Z79.899 Other long term (current) drug therapy; Z79.82 Long term (current) use of aspirin; W19.XXXA Unspecified fall, initial encounter
CPT/HCPCS: 70450

== ENCOUNTER 2018-03-25 13:31 | Inpatient (IN) | payer MEDICARE, BC ==
[2018-03-25 14:13] LABS: #Basophils 0.1 thou/uL (0.0-0.2); #Eosinphils 0.6 thou/uL (0.0-0.7); #Lymphocytes 1.9 thou/uL (1.20-3.40); #Monocytes 0.5 thou/uL (0.11-0.59); #Neutrophils 4.1 thou/uL (1.40-6.50); %Basophils 0.9 % (0.0-1.0); %Eosinophils 8.7 % (0.0-10.0); %Lymphocytes 26.4 % (21.0-51.0); %Monocytes 6.2 % (0.0-10.0); %Neutrophils 57.7 % (42.0-75.0); Hemoglobin 9.4 g/dL (14.0-18.0); Mean Corpuscular HGB CONC 31.7 g/dL (32.0-36.0); Mean Corpuscular Hemoglobin 32.2 pg (27.0-31.0); Mean Platelet Volume 7.7 fL (7.4-10.4); Platelet Count 221 thou/uL (130-400); RBC Distribution Width 15.3 % (11.5-14.5); Red Blood Cell (RBC) Count 2.91 mill/uL (4.70-6.10); White Blood Cell (WBC) Count 7.2 thou/uL (4.8-10.8)
[2018-03-25 14:32] LABS: ALT (SGPT) Less than 7 U/L (8-55); AST (SGOT) 12 U/L (5-34); Albumin 2.5 g/dL (3.4-4.8); Alkaline Phosphatase 82 U/L (40-150); Anion Gap 12 mmol/L (10-20); BUN (Urea Nitrogen) 28 mg/dL (8.4-25.7); Bilirubin, Total 1.3 mg/dL (0.2-1.2); Calc. Creatinine Clearance 0 mL/min (70-130); Calcium 8.6 mg/dL (7.8-10.44); Carbon Dioxide 20 mmol/L (23-31); Chloride 108 mmol/L (98-107); Estimated GFR-MDRD 71; Globulin 3.5 g/dL (2.4-3.5); Glucose 141 mg/dL (83-110); Potassium 3.5 mmol/L (3.5-5.1); Sodium 136 mmol/L (136-145)
[2018-03-25] MEDS ORDERED: Acetaminophen 325 MG TAB ONE (15:14)
[2018-03-25 15:15] LABS: Bilirubin Small (Negative); Blood, Urine Negative (Negative); Clarity TURBID (Clear); Glucose, Urine (Dipstick) Negative (Negative); Leukocyte Large (Negative); Nitrite Negative (Negative); Protein, Urine (Dipstick) 30 mg/dL (Neg-Trace); Specific Gravity, Urine 1.024 (1.002-1.036); pH, Urine 5.5 (5.0-9.0)
[2018-03-25 15:19] LABS: Squamous Epithelial None Seen HPF (0-3)
[2018-03-25 15:24] LABS: Pathc Cast-AUWi Flag 12.53 (0-2.49); Yeast-AUWi Flag 2697.8 (0-25.0)
--- NOTE | 2018-03-25 15:25 | RAD ---
PORTABLE CHEST: Date: 03-25-18 Provided Clinical History: Altered mental status. Comparison: 01-24-18 FINDINGS: Cardiac silhouette remains enlarged. Suboptimal visualization of the left lung base. NO definite foca l consolidation, pleural fluid, or pneumothorax apparent. IMPRESSION: Cardiomegaly without definite acute cardiopulmonary process. If there is persistent clinical concern, consideration correlation with a lateral view. POS: [facility]
[2018-03-25 15:40] LABS: Bacteria/HPF 1+ HPF (None Seen); Hyaline Casts/LPF 0-3 HYALINE CAST LPF (0-3 Hyaline); Manual Microscopic Reviewed? No Path Casts Seen; RBC/HPF None Seen HPF (0-3); Yeast-All Forms 2+ HPF (None Seen)
[2018-03-25] MEDS ORDERED: cefTRIAXone\\ROCEPHIN 1 GM VIAL ONE (16:23)
--- NOTE | 2018-03-25 16:30 | RAD ---
SACRUM TWO VIEWS: History: Sacral discomfort. Comparison: None. FINDINGS: Limited evaluation due to overlying contrast material. Repeat imaging after contrast material passes from the sigmoid colon and rectum. IMPRESSION: Limited exam. POS: LISA
[2018-03-25 17:50] LABS: Lactic Acid 2.7 mmol/L (0.5-2.2)
[2018-03-25] MEDS ORDERED: Ondansetron ODT 4 MG TAB SL PRN (18:22)
[2018-03-25] MEDS ORDERED: Sodium Chloride 0.9% 1,000 ML IV SCH (18:22)
[2018-03-25] MEDS ORDERED: Ondansetron HCl/PF 4 MG/2 ML Vial IVP PRN ×2 (18:22→21:59)
[2018-03-25] MEDS ORDERED: Acetaminophen 325 MG TAB PO PRN (18:22)
[2018-03-25] MEDS ORDERED: Calcium Carbonate 500 MG ChewTAB PO PRN (21:59)
[2018-03-25] MEDS ORDERED: Ondansetron ODT 4 MG TAB PO PRN (21:59)
[2018-03-25] MEDS ORDERED: Apixaban 5 MG TAB PO SCH (22:00)
[2018-03-25] MEDS ORDERED: Tamsulosin HCl 0.4 MG CAP PO SCH (22:00)
[2018-03-25] MEDS ORDERED: Diltiazem HCl SR 90 mg Capsule PO SCH (22:00)
[2018-03-25] MEDS ORDERED: hydrALAZINE 20 MG/ML VIAL SLOW IVP PRN (22:01)
--- NOTE | 2018-03-25 23:28 | HP ---
DATE OF ADMISSION: 03/25/2018 PRIMARY CARE PHYSICIAN: Dr. Geoffrey Paulino. CHIEF COMPLAINT: Altered mentation. HISTORY OF PRESENT ILLNESS: Patient is an 83-year-old white male with a recent UTI, chronic urinary retention status post Rojas catheter, presented to the emergency room with altered mentation. He was discharged from this facility approximately 3 weeks ago with UTI. He currently lives at [facility] and has home healthcare. Patient is a poor historian and no family is at the bedside. History obtai luisa from the ER chart as well as review of previous hospital records. Patient was found to have altered mentation with worsening lower extremity edema for which he was sen t to the emergency room for evaluation. He was tachycardic on ER arrival. He was alert to person an d place per ER record; however, denied any specific complaints. In the emergency room, his initial v ital signs showed temperature 97.5, respirations 15, pulse rate 102 with a blood pressure 101/70 with O2 saturation of 100% on room air. His WBC count was 7.2 with hemoglobin 9.4 and platelet count 221 . Lactic acid was 3.4 with a BNP 445, BUN 28, creatinine 1.0. Urinalysis showed greater than 50 wbc 's with 1+ bacteria and 2+ yeast. Stool for occult blood was negative. Chest x-ray was negative for infiltrate. He received 2.5 liters of IV fluid, Tylenol and 1 gram Rocephin in the emergency room. PAST MEDICAL HISTORY: 1. Chronic urinary retention due to bladder outlet obstruction status post Rojas catheter. 2. Chronic atrial fibrillation, on anticoagulation. 3. Coronary artery disease, status post inferior ST elevation PR in November of this year, status post b are metal stent placement. 4. 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 5. Recent urinary tract infection. 6. Folic acid deficiency. 7. Parkinson disease. 8. 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 9. Severe aortic stenosis. 10. Severe tricuspid regurgitation. 11. Physical deconditioning. 12. Vascular dementia. PAST SURGICAL HISTORY: 1. Cardiac catheterization. 2. Ablation for atrial arrhythmias. 3. Varicose vein surgery. 4. Right knee surgery. ALLERGIES: Patient is allergic to beta blockers. CURRENT HOME MEDICATIONS: There was no list sent from [employer]. We will try to obtain accurate li st of medications from the family in a.m. SOCIAL HISTORY: As discussed above. No current use of smoking, alcohol or drug use. He is FULL COD E per previous record and daughter is the surrogate decision maker. FAMILY HISTORY: Negative for heart disease per review of previous record. REVIEW OF SYSTEMS: Cannot be reliably obtained from the patient due to current cognitive status. PHYSICAL EXAMINATION: VITAL SIGNS: As discussed above. GENERAL: This is an 83-year-old male with altered mentation. HEENT: Head atraumatic, normocephalic. Sclerae are anicteric. Dry mucous membrane, no oral lesion. NECK: Supple, no JVD, no carotid bruit. LUNGS: Essentially clear to auscultation bilaterally, no wheezing, rales or rhonchi. HEART: S1, S2 present. Irregularly irregular, 3/6 systolic ejection murmur noted. No heaves or pul sation. ABDOMEN: Soft, nontender, bowel sounds present. EXTREMITIES: 3+ edema in bilateral lower extremities. No calf tenderness. NEUROLOGIC: Grossly nonfocal, moves all 4 extremities. Power was 5/5 in all extremities. PSYCHIATRY: The patient is alert with baseline dementia. SKIN: Warm and dry. LYMPH NODES: No palpable lymph nodes in the neck. PERIPHERAL VASCULAR: Radial pulses palpable bilaterally. MUSCULOSKELETAL: No joint swelling or tenderness. LABORATORY FINDINGS: As discussed above. BUN was 28, creatinine 1.0. Total bilirubin 1.3, albumin 2.5. BNP 445. Lactic acid 3.4. IMAGING: Chest x-ray by my review as discussed above. IMPRESSION: 1. Sepsis secondary to catheter-associated urinary tract infection. 2. Toxic metabolic encephalopathy secondary to #1. 3. Dehydration. 4. Lactic acidosis. 5. Chronic kidney disease stage 2. 6. Chronically abnormal liver function tests. 7. Moderate protein calorie malnutrition. 8. Macrocytic anemia. 9. Folic acid deficiency. 10. Chronic atrial fibrillation, on anticoagulation. Per recent pharmacy record, patient takes Eliq uis and Cardizem. 11. Parkinson disease. 12. Vascular dementia. 13. Chronic anticoagulation. 14. Severe aortic stenosis. 15. Coronary artery disease, status post ST elevation PR earlier this year. 16. History of cerebrovascular accident. PLAN: Patient will be monitored on the medical floor. We will resume home medications based on rece nt pharmacy records. We will confirm home medications. We will resume Flomax, folic acid, Cardizem, Seroquel. Consult physical therapy, occupation therapy. Fall precautions. Patient has bilateral l ower extremity swelling; however, is already on anticoagulation. It is unlikely that patient has DVT . He had severe aortic stenosis with elevated BNP. His echocardiogram in January showed left ventric ular ejection fraction of 50-55%. We will discontinue IV fluids. Continue ceftriaxone. Resume foli c acid. We will consult Infectious Disease due to recurrent urinary tract infections. Plan of care was discussed with the patient. He stated understanding. We will discuss the plan of c are with the family when they arrive.
[2018-03-25 23:49] VITALS: BMI 27.3
[2018-03-26 04:40] LABS: #Lymphocytes 2.1 thou/uL (1.20-3.40); #Monocytes 0.5 thou/uL (0.11-0.59); #Neutrophils 3.6 thou/uL (1.40-6.50); %Basophils 0.5 % (0.0-1.0); %Eosinophils 13.4 % (0.0-10.0); %Lymphocytes 28.7 % (21.0-51.0); %Monocytes 6.5 % (0.0-10.0); %Neutrophils 50.9 % (42.0-75.0); Hemoglobin 8.6 g/dL (14.0-18.0); Mean Corpuscular HGB CONC 31.4 g/dL (32.0-36.0); Mean Corpuscular Hemoglobin 31.3 pg (27.0-31.0); Mean Corpuscular Volume 99.6 fL (78.0-98.0); Mean Platelet Volume 7.7 fL (7.4-10.4); Platelet Count 204 thou/uL (130-400); RBC Distribution Width 15.2 % (11.5-14.5); Red Blood Cell (RBC) Count 2.76 mill/uL (4.70-6.10); White Blood Cell (WBC) Count 7.1 thou/uL (4.8-10.8)
[2018-03-26 04:45] LABS: Lactic Acid 0.9 mmol/L (0.5-2.2)
[2018-03-26 04:50] LABS: Anion Gap 7 mmol/L (10-20); BUN (Urea Nitrogen) 23 mg/dL (8.4-25.7); Calc. Creatinine Clearance 108 mL/min (70-130); Carbon Dioxide 22 mmol/L (23-31); Chloride 112 mmol/L (98-107); Estimated GFR-MDRD Greater than 90; Glucose 97 mg/dL (83-110); Magnesium 1.5 mg/dL (1.6-2.6); Potassium 3.3 mmol/L (3.5-5.1); Sodium 138 mmol/L (136-145)
[2018-03-26] MEDS: Carbidopa/Levodopa 25-100 mg Tablet PO SCH ×4 (06:28→17:44)
[2018-03-26] MEDS: cefTRIAXone\\ROCEPHIN 1 GM in Sodium Chloride 0.9% 100 ML IVPB SCH (08:55)
[2018-03-26] MEDS: Famotidine 20 MG TAB PO SCH (08:55)
[2018-03-26] MEDS: Polyethylene Glycol 3350 17 GM Packet PO SCH (08:56)
[2018-03-26] MEDS: Folic Acid 1 MG TAB PO SCH (08:56)
[2018-03-26] MEDS ORDERED: Magnesium 2 GM/50 ML 2 GM in Premix Bag 1 BAG IVPB SCH (09:00)
[2018-03-26] MEDS ORDERED: Prevnar 13-Val Conj/PF 0.5 ML SYRINGE IM ONE (09:00)
[2018-03-26] MEDS ORDERED: Diltiazem HCl SR 90 mg Capsule PO SCH (09:00)
[2018-03-26] MEDS: Amantadine HCl 100 mg Capsule PO SCH (09:28)
[2018-03-26] MEDS: Apixaban 5 MG TAB PO SCH ×2 (09:31→20:46)
[2018-03-26] MEDS: Clopidogrel Bisulfate 75 MG TAB PO SCH (09:31)
[2018-03-26] MEDS ORDERED: Potassium Chloride 20 MEQ TAB PO SCH ×2 (10:00→17:00)
[2018-03-26] MEDS: Diltiazem HCl SR 90 mg Capsule PO SCH ×3 (13:04→20:45)
[2018-03-26] MEDS: Tamsulosin HCl 0.4 MG CAP PO SCH (20:45)
[2018-03-26] MEDS: Acetaminophen 325 MG TAB PO PRN (20:46)
--- NOTE | 2018-03-26 21:16 | CON ---
DATE OF CONSULTATION: 03/26/2018 REASON FOR CONSULTATION: Urinary tract infection. HISTORY OF PRESENT ILLNESS: An 83-year-old gentleman with history of atrial fibrillation, coronary artery disease, and Parkinson's disease and urinary retention, hydronephrosis requiring indwelling Rojas catheter not a candidate for TURP who was brought in with altered mental status after recently being admitted to this facility with a urinary tract infection. He lives in [facility]. He has very poor cognitive function and cannot recall the events that led to his admission at this time. On arrival to the emergency room, he was tachycardic and has had evidence of sepsis. His initial temperature was 97.5 with pulse 102, blood pressure 101/70, O2 sat 100% . BUN was 28, creatinine 1.0. Urinalysis was abnormal. PAST MEDICAL HISTORY: Includes urinary retention with BPH, not a candidate for TURP, chronic indwelling Rojas catheter, atrial fibrillation, bilateral hydronephrosis from the above, coronary artery disease, prior [place], left middle cerebral artery distribution cerebrovascular accident, Parkinson's disease, physical deconditioning and dementia. PAST SURGICAL HISTORY: Cardiac catheterization ablation of atrial arrhythmia. ALLERGIES: BETA BLOCKERS. CURRENT MEDICATIONS: Tylenol, amantadine, Eliquis, Tums, Sinemet, Rocephin, diltiazem, famotidine, Folvite, ondansetron, polyethylene glycol, tamsulosin. SOCIAL HISTORY: Prior smoking, but not current. FAMILY HISTORY: Noncontributory. PHYSICAL EXAMINATION: VITAL SIGNS: Temperature max 98.2, blood pressure 108/66, pulse 90-120. SKIN: There is a bruising in the right chest in the gluteal region, left side and other smaller lesions in the extremities. Peripheral IV access. The patient has a Rojas catheter in place. He is awake, does not appear in distress. He knows his name, but could not eat. He knew he was in the hospital , but could not tell me the name of the hospital or the city, could not tell me the date either. No lymphadenopathy. HEENT: Ocular movements conjugate. Sclerae white. Oral cavity with numerous missing teeth. NECK: Supple, no jugular vein distention. LUNGS: Symmetric air entry, no crackles or wheezing. HEART: S1, S2, irregular rate. ABDOMEN: Soft, not distended or tender. No ascites. No bladder distention. EXTREMITIES: No joint inflammatory activity. Pulses 1+ in dorsalis pedis. NEUROLOGIC: Plantar responses are flexure. He knows his name and other aspects of orientation as above. LABORATORY DATA: White cell count 7.2, hemoglobin 9.4, MCV 101, normal differential. Sodium 138, creatinine 1.0, albumin 2.5. Urinalysis was abnormal and cultures thus far with yeast species. He has had yeast species since February this year in the urine. The quantitation is greater than 100, 000 CFUs. ASSESSMENT AND PLAN: 1. Cardiomyopathy. 2. Atrial fibrillation. 3. BPH with obstructive uropathy and hydronephrosis with chronic indwelling Rojas catheter, not a candidate for TURP and now with what has been described as a concern with altered mental status and tachycardia. I do not believe that there is evidence to suggest a truly invasive urinary tract infection at this point in time. If his blood cultures remain negative, I would discontinue antimicrobials upon discharge planning. Continue with Rojas catheter management in the outpatient setting. Most of the cases where yeast is isolated from the urine reflects colonization without truly invasive process being present. JASMIN
--- NOTE | 2018-03-26 23:02 | PDOC.PN ---
- Subjective Encounter Start Date: 03/26/18 Encounter Start Time: 09:00 Patient seen and examined for Sepsis. No significant change in mentation. No new complaints. No overnight events - Objective Resuscitation Status: Resuscitation Status FULL:Full Resuscitation MAR Reviewed: Yes Vital Signs & Weight: Vital Signs (12 hours) Temp Pulse Resp BP BP Pulse Ox 03/26/18 20:00 98.0 F 99 20 102/66 99 03/26/18 17:43 113 H 03/26/18 17:08 97.9 F 131 H 20 116/77 99 Weight Admit Weight 224 lb 7 oz Weight 224 lb 7 oz I&O: 03/25/18 03/26/18 03/27/18 06:59 06:59 06:59 Intake Total 420 1110 Output Total 375 400 Balance 45 710 Result Diagrams: 03/27/18 04:26 03/27/18 04:26 Phys Exam - Physical Examination Constitutional: NAD Neck: no JVD Respiratory: no wheezing, no rales, no rhonchi symmetrical Cardiovascular: no rub, irregular No heaves/pulsations Gastrointestinal: soft, non-tender, no distention, positive bowel sounds Musculoskeletal: no edema Neurological: non-focal, normal sensation, moves all 4 limbs Psychiatric: normal affect Skin: no rash Dx/Plan - Plan IMPRESSION: 1. Sepsis secondary to catheter-associated urinary tract infection. 2. Toxic metabolic encephalopathy secondary to #1. 3. Dehydration with Electrolyte abn (Hypomagnesemia, Hypophosphatemia) 4. Lactic acidosis. 5. Chronic kidney disease stage 2. 6. Chronically abnormal liver function tests. 7. Moderate protein calorie malnutrition. 8. Macrocytic anemia. 9. Folic acid deficiency. 10. Chronic atrial fibrillation, on anticoagulation. Per recent pharmacy record, patient takes Eliquis and Cardizem. 11. Parkinson disease. 12. Vascular dementia. 13. Chronic anticoagulation. 14. Severe aortic stenosis. 15. Coronary artery disease, status post ST elevation [place] earlier this year. 16. History of cerebrovascular accident. PLAN: Cont IV Ceftriaxone Increase Cardizem dose to QID Cont anticoag AM labs Replace Electrolyte Consult Urology due to recent prostatic procedure Cont other meds as below Laboratory Tests 03/26/18 04:18 Potassium 3.3 L Magnesium 1.5 L Review of Systems - Review of Systems Respiratory: negative: Cough, Dry, Shortness of Breath, Hemoptysis, SOB with Excertion, Pleuritic Pain, Sputum, Wheezing Cardiovascular: negative: chest pain, palpitations, orthopnea, paroxysmal nocturnal dyspnea, edema, light headedness, other - Medications/Allergies Allergies/Adverse Reactions: Allergies Allergy/AdvReac Type Severity Reaction Status Date / Time Beta-Blockers Allergy Verified 02/27/18 14:05 (Beta-Adrenergic Bloc Medications: Current Medications Acetaminophen (Tylenol) 650 mg PO Q4H PRN PRN Reason: Headache/Fever/Mild Pain (1-3) Last Admin: 03/26/18 20:46 Dose: 650 mg Amantadine HCl (Symmetrel) 100 mg PO DAILY [facility] Last Admin: 03/26/18 09:28 Dose: 100 mg Apixaban (Eliquis) 5 mg PO BID [facility] Last Admin: 03/26/18 20:46 Dose: 5 mg Calcium Carbonate (Tums) 1,000 mg PO Q4H PRN PRN Reason: Heartburn or Indigestion Carbidopa/Levodopa (Sinemet 25-100) 1.5 tab PO 0700,1100,1500,1900 [facility] Last Admin: 03/26/18 17:44 Dose: 1.5 tab Clopidogrel Bisulfate (Plavix) 75 mg PO DAILY [facility] Last Admin: 03/26/18 09:31 Dose: 75 mg Diltiazem HCl (Cardizem Sr) 90 mg PO QID [facility] Last Admin: 03/26/18 20:45 Dose: 90 mg Famotidine (Pepcid) 20 mg PO DAILY [facility] Last Admin: 03/26/18 08:55 Dose: 20 mg Folic Acid (Folvite) 1 mg PO DAILY [facility] Last Admin: 03/26/18 08:56 Dose: 1 mg Hydralazine HCl (Apresoline) 5 mg SLOW IVP Q4H PRN PRN Reason: SBP Greater Than 180 Ceftriaxone Sodium 1 gm/ (Sodium Chloride) 100 mls @ 200 mls/hr IVPB DAILY [facility] Last Admin: 03/26/18 08:55 Dose: 100 mls Ondansetron HCl (Zofran Odt) 4 mg PO Q6H PRN PRN Reason: Nausea/Vomiting Ondansetron HCl (Zofran) 4 mg IVP Q6H PRN PRN Reason: Nausea/Vomiting Polyethylene Glycol (Miralax) 17 gm PO DAILY [facility] Last Admin: 03/26/18 08:56 Dose: 17 gm Quetiapine Fumarate (Seroquel) 12.5 mg PO HS [facility] Last Admin: 03/26/18 20:45 Dose: 12.5 mg Sertraline HCl (Zoloft) 12.5 mg PO DAILY [facility] Last Admin: 03/26/18 09:30 Dose: 12.5 mg Tamsulosin HCl (Flomax) 0.4 mg PO HS [facility] Last Admin: 03/26/18 20:45 Dose: 0.4 mg
--- NOTE | 2018-03-27 00:38 | CON ---
DATE OF CONSULTATION: 03/26/2018 REASON FOR CONSULTATION: Urinary retention, urinary tract infection. HISTORY OF PRESENT ILLNESS: Mr. Fitzgerald is an 83-year-old gentleman who I have seen on several prior occasions. He has been seen in the emergency room on several occasions for urinary tract infection and recurrent retention. He has been managed with Rojas catheters. Oftentimes, catheters can be removed and voids normally for a while and then presents later in retention again. He presents at this time with altered mental status. Evaluation in the emergency room demonstrated signs and symptoms consistent with possible sepsis. Urinalysis was positive for yeast and there is 1+ bacteria. The patient recently had a myocardial infarction in November of this year and underwent bare metal stent placement at that time, he is currently on Eliquis. Because of his recent [place] and anticoagulation, treatment options for urinary retention have been limited. He is on maximal medical therapy and he has undergone an office based minimally invasive procedure recently in hopes to deeming him catheter free. PAST MEDICAL HISTORY: Aortic stenosis, myocardial infarction in 11/2017, tricuspid regurgitation, urinary retention, CVA. PAST SURGICAL HISTORY: Cardiac catheterization with a bare metal stent placement in 11/2017, cardiac ablation for atrial arrhythmias, right knee surgery, varicose vein surgery. ALLERGIES: BETA BLOCKERS. CURRENT MEDICATIONS: Please see chart. He is on Eliquis as an anticoagulant. SOCIAL HISTORY: He has been in a rehab facility ([facility]) recently. He is a nonsmoker, does not drink alcohol. His daughter helps with his care. FAMILY HISTORY: Noncontributory. REVIEW OF SYSTEMS: Respiratory: Denies shortness of breath. Cardiovascular: Denies chest pain or palpitations. Gastrointestinal: Denies chronic constipation, diarrhea. Genitourinary: Please see history of present illness. PHYSICAL EXAMINATION: VITAL SIGNS: Temperature 98.8, pulse 98, blood pressure 128/82. GENERAL: He is awake and alert at this time. HEENT: Normocephalic, atraumatic. NECK: Supple, without masses. CARDIAC: Irregular heart rhythm, ejection murmur noted. ABDOMEN: Soft, nontender. GENITOURINARY: Rojas catheter in place, draining dark yellow urine. EXTREMITIES: 3+ bilateral edema. LABORATORY DATA: Admission laboratory, creatinine 1.0, hemoglobin 9.4, platelet count 221. IMPRESSION: Mr. Fitzgerald has persistent urinary retention despite maximal medical therapy. He is also recently status post an office based minimally invasive procedure for his urinary retention. Ideally, he would undergo surgical therapy with laser vaporization of the prostate. Unfortunately because of recent [place], he has a high risk and for that reason, I doubt will be cleared for surgical therapy. In the meantime, he will be managed with an indwelling Rojas catheter. My hope is that he can become catheter free after the recent office- based procedure. Urine cultures are pending at this time. Once cultures results have been obtained, we will make sure he is on culture specific antibiotic therapy and then remove his catheter for a voiding trial. If, however, he is cleared medically for a surgical procedure we will try to arrange for cystoscopy with laser vaporization of the prostate during this hospitalization. JASMIN
[2018-03-27] MEDS: Acetaminophen 325 MG TAB PO PRN (02:50)
[2018-03-27 04:46] LABS: #Eosinphils 0.9 thou/uL (0.0-0.7); #Lymphocytes 1.7 thou/uL (1.20-3.40); #Monocytes 0.4 thou/uL (0.11-0.59); #Neutrophils 3.4 thou/uL (1.40-6.50); %Basophils 0.5 % (0.0-1.0); %Eosinophils 14.3 % (0.0-10.0); %Lymphocytes 26.2 % (21.0-51.0); %Monocytes 6.6 % (0.0-10.0); %Neutrophils 52.3 % (42.0-75.0); Hemoglobin 8.7 g/dL (14.0-18.0); Mean Corpuscular HGB CONC 32.4 g/dL (32.0-36.0); Mean Corpuscular Hemoglobin 32.3 pg (27.0-31.0); Mean Corpuscular Volume 99.7 fL (78.0-98.0); Mean Platelet Volume 7.4 fL (7.4-10.4); Platelet Count 210 thou/uL (130-400); RBC Distribution Width 15.3 % (11.5-14.5); Red Blood Cell (RBC) Count 2.68 mill/uL (4.70-6.10); White Blood Cell (WBC) Count 6.5 thou/uL (4.8-10.8)
[2018-03-27 04:52] LABS: Albumin 2.2 g/dL (3.4-4.8); Anion Gap 8 mmol/L (10-20); BUN (Urea Nitrogen) 20 mg/dL (8.4-25.7); BUN/Creatinine Ratio 26.67; Calc. Creatinine Clearance 106 mL/min (70-130); Calcium 8.1 mg/dL (7.8-10.44); Carbon Dioxide 22 mmol/L (23-31); Chloride 110 mmol/L (98-107); Estimated GFR-MDRD Greater than 90; Glucose 102 mg/dL (83-110); Magnesium 1.8 mg/dL (1.6-2.6); Phosphorus 2.1 mg/dL (2.3-4.7); Potassium 3.5 mmol/L (3.5-5.1); Sodium 136 mmol/L (136-145)
[2018-03-27] MEDS: Carbidopa/Levodopa 25-100 mg Tablet PO SCH ×4 (05:56→18:41)
[2018-03-27] MEDS: Diltiazem HCl SR 90 mg Capsule PO SCH ×4 (09:50→20:08)
[2018-03-27] MEDS: Folic Acid 1 MG TAB PO SCH (09:50)
[2018-03-27] MEDS: K-Phos Neutral 250 MG TAB PO SCH ×3 (09:50→16:45)
[2018-03-27] MEDS: Apixaban 5 MG TAB PO SCH ×2 (09:50→20:08)
[2018-03-27] MEDS: Famotidine 20 MG TAB PO SCH (09:51)
[2018-03-27] MEDS: Clopidogrel Bisulfate 75 MG TAB PO SCH (09:51)
[2018-03-27] MEDS: Amantadine HCl 100 mg Capsule PO SCH (09:51)
[2018-03-27] MEDS: Polyethylene Glycol 3350 17 GM Packet PO SCH (09:54)
[2018-03-27] MEDS: cefTRIAXone\\ROCEPHIN 1 GM in Sodium Chloride 0.9% 100 ML IVPB SCH (09:55)
[2018-03-27] MEDS: Multivit, Therapeutic 1 TAB PO SCH (09:55)
--- NOTE | 2018-03-27 17:49 | PRG ---
DATE OF SERVICE: 03/27/2018 SUBJECTIVE: Patient is disoriented and does not make any sense. PHYSICAL EXAMINATION: GENERAL APPEARANCE: He does not appear in distress. VITAL SIGNS: His T-max is 98.4, blood pressure 111/70, pulse 81, O2 sat 97%. LUNGS: Symmetric air entry. HEART: S1, S2, regular rate. ABDOMEN: Soft. LABORATORY DATA: White cell count 6.5, hemoglobin 8.7, platelets 210 with 52% neutrophils and 26% lymphocytes. Rojas catheter in place. Microbiology with yeast. ASSESSMENT AND DISCUSSION: Cardiomyopathy, atrial fibrillation, BPH with obstructive uropathy, hydronephrosis with chronic indwelling Rojas catheter and not yet a candidate for prostate removal due to his recent OR. Dr. Blas is planning some intervention with voiding trial and therefore I would recommend starting an antifungal such as Diflucan around the moment of the instrumentation of the urinary tract. Would not need continuation of the treatment for more than a few days after the instrumentation is completed. JASMIN
[2018-03-27] MEDS: Tamsulosin HCl 0.4 MG CAP PO SCH (20:08)
--- NOTE | 2018-03-27 23:18 | PDOC.PN ---
- Subjective Encounter Start Date: 03/27/18 Encounter Start Time: 13:00 Patient seen and examined for Sepsis/UTI. No new complaints. No overnight events - Objective Resuscitation Status: Resuscitation Status FULL:Full Resuscitation Vital Signs & Weight: Vital Signs (12 hours) Temp Pulse Resp BP Pulse Ox 03/27/18 20:00 98.1 F 85 18 124/97 H 98 Weight Admit Weight 224 lb 7 oz Weight 224 lb 7 oz I&O: 03/26/18 03/27/18 03/28/18 06:59 06:59 06:59 Intake Total 420 1350 840 Output Total 375 550 500 Balance 45 800 340 Result Diagrams: 03/27/18 04:26 03/28/18 04:08 Phys Exam - Physical Examination Constitutional: NAD Respiratory: no wheezing, no rhonchi Cardiovascular: no rub, irregular Gastrointestinal: soft, non-tender, positive bowel sounds Musculoskeletal: no edema Neurological: moves all 4 limbs Dx/Plan - Plan DVT proph w/SCDs IMPRESSION: 1. Sepsis secondary to catheter-associated urinary tract infection. 2. Toxic metabolic encephalopathy secondary to #1. 3. Dehydration with Electrolyte abn (Hypomagnesemia, Hypophosphatemia) 4. Lactic acidosis. 5. Chronic kidney disease stage 2. 6. Chronically abnormal liver function tests. 7. Moderate protein calorie malnutrition. 8. Macrocytic anemia. 9. Folic acid deficiency. 10. Chronic atrial fibrillation, on anticoagulation. Per recent pharmacy record, patient takes Eliquis and Cardizem. 11. Parkinson disease. 12. Vascular dementia. 13. Chronic anticoagulation. 14. Severe aortic stenosis. 15. Coronary artery disease, status post ST elevation [place] earlier this year. 16. History of cerebrovascular accident. PLAN: AM labs Cont Atbx Cont current meds as below Await final cultures per ID Cont Cardizem Review of Systems - Review of Systems Respiratory: negative: Cough, Dry, Shortness of Breath, Hemoptysis, SOB with Excertion, Pleuritic Pain, Sputum, Wheezing Cardiovascular: negative: chest pain, palpitations, orthopnea, paroxysmal nocturnal dyspnea, edema, light headedness, other - Medications/Allergies Allergies/Adverse Reactions: Allergies Allergy/AdvReac Type Severity Reaction Status Date / Time Beta-Blockers Allergy Verified 02/27/18 14:05 (Beta-Adrenergic Bloc Medications: Current Medications Acetaminophen (Tylenol) 650 mg PO Q4H PRN PRN Reason: Headache/Fever/Mild Pain (1-3) Last Admin: 03/27/18 02:50 Dose: 650 mg Amantadine HCl (Symmetrel) 100 mg PO DAILY [facility] Last Admin: 03/27/18 09:51 Dose: 100 mg Apixaban (Eliquis) 5 mg PO BID [facility] Last Admin: 03/27/18 20:08 Dose: 5 mg Calcium Carbonate (Tums) 1,000 mg PO Q4H PRN PRN Reason: Heartburn or Indigestion Carbidopa/Levodopa (Sinemet 25-100) 1.5 tab PO 0700,1100,1500,1900 [facility] Last Admin: 03/27/18 18:41 Dose: 1.5 tab Clopidogrel Bisulfate (Plavix) 75 mg PO DAILY [facility] Last Admin: 03/27/18 09:51 Dose: 75 mg Diltiazem HCl (Cardizem Sr) 90 mg PO QID [facility] Last Admin: 03/27/18 20:08 Dose: Not Given Famotidine (Pepcid) 20 mg PO DAILY [facility] Last Admin: 03/27/18 09:51 Dose: 20 mg Folic Acid (Folvite) 1 mg PO DAILY [facility] Last Admin: 03/27/18 09:50 Dose: 1 mg Hydralazine HCl (Apresoline) 5 mg SLOW IVP Q4H PRN PRN Reason: SBP Greater Than 180 Ceftriaxone Sodium 1 gm/ (Sodium Chloride) 100 mls @ 200 mls/hr IVPB DAILY [facility] Last Admin: 03/27/18 09:55 Dose: 100 mls Multivitamins (Theragran) 1 tab PO DAILY [facility] Last Admin: 03/27/18 09:55 Dose: 1 tab Ondansetron HCl (Zofran Odt) 4 mg PO Q6H PRN PRN Reason: Nausea/Vomiting Ondansetron HCl (Zofran) 4 mg IVP Q6H PRN PRN Reason: Nausea/Vomiting Phosphorus (Kphos Neutral) 250 mg PO TID-WM [facility] Last Admin: 03/27/18 16:45 Dose: 250 mg Polyethylene Glycol (Miralax) 17 gm PO DAILY [facility] Last Admin: 03/27/18 09:54 Dose: 17 gm Quetiapine Fumarate (Seroquel) 12.5 mg PO HS [facility] Last Admin: 03/27/18 20:08 Dose: 12.5 mg Sertraline HCl (Zoloft) 12.5 mg PO DAILY [facility] Last Admin: 03/27/18 09:50 Dose: 12.5 mg Tamsulosin HCl (Flomax) 0.4 mg PO HS [facility] Last Admin: 03/27/18 20:08 Dose: 0.4 mg
[2018-03-28] MEDS: Carbidopa/Levodopa 25-100 mg Tablet PO SCH ×4 (05:38→18:32)
[2018-03-28 06:17] LABS: Magnesium 1.5 mg/dL (1.6-2.6); Potassium 3.7 mmol/L (3.5-5.1)
[2018-03-28 06:22] LABS: Phosphorus 2.4 mg/dL (2.3-4.7)
[2018-03-28] MEDS ORDERED: Magnesium Sulfate 2 GM in Sodium Chloride 0.9% 100 ML IVPB SCH (07:30)
[2018-03-28] MEDS ORDERED: Magnesium 2 GM/50 ML 2 GM in Premix Bag 1 BAG IVPB SCH (08:00)
[2018-03-28] MEDS: Acetaminophen 325 MG TAB PO PRN (08:56)
[2018-03-28] MEDS: K-Phos Neutral 250 MG TAB PO SCH ×3 (08:57→16:39)
[2018-03-28] MEDS: Polyethylene Glycol 3350 17 GM Packet PO SCH (08:57)
[2018-03-28] MEDS: Amantadine HCl 100 mg Capsule PO SCH ×2 (08:57→08:59)
[2018-03-28] MEDS: Diltiazem HCl SR 90 mg Capsule PO SCH ×4 (08:57→19:44)
[2018-03-28] MEDS: cefTRIAXone\\ROCEPHIN 1 GM in Sodium Chloride 0.9% 100 ML IVPB SCH (08:57)
[2018-03-28] MEDS: Multivit, Therapeutic 1 TAB PO SCH (08:59)
[2018-03-28] MEDS: Folic Acid 1 MG TAB PO SCH (08:59)
[2018-03-28] MEDS: Famotidine 20 MG TAB PO SCH (08:59)
[2018-03-28] MEDS: Apixaban 5 MG TAB PO SCH ×2 (08:59→19:44)
[2018-03-28] MEDS: Clopidogrel Bisulfate 75 MG TAB PO SCH (08:59)
[2018-03-28] MEDS ORDERED: Fluconazole 40 mg/ml Oral Suspension PO SCH (09:00)
--- NOTE | 2018-03-28 09:52 | PRG ---
DATE OF SERVICE: 03/27/2018 SUBJECTIVE: The patient has no new complaints. OBJECTIVE: VITAL SIGNS: Temperature 98.6, blood pressure 138/82, pulse 82, respiratory rate 16. ABDOMEN: Soft, nontender, no palpable masses. Liver and spleen are palpable. No abdominal tenderne ss. Urine culture; yeast, no bacteria seen. IMPRESSION: Persistent urinary retention. He has yeast in the urine, but no bacterial infection. I nfectious Disease has seen the patient, has not recommended antifungal therapy. PLAN: Catheter removal for voiding trial tomorrow. Replace catheter if unable to void after 6 hours .
[2018-03-28] MEDS ORDERED: Micafungin 100 MG in Sodium Chloride 0.9% 100 ML IVPB SCH (13:00)
[2018-03-28] MEDS: Tamsulosin HCl 0.4 MG CAP PO SCH (19:44)
--- NOTE | 2018-03-28 20:46 | PDOC.PN ---
- Subjective Encounter Start Date: 03/28/18 Encounter Start Time: 13:00 Patient seen and examined for Encephalopathy/UTI. Rojas cath dced. No new complaints. No overnight events - Objective Resuscitation Status: Resuscitation Status FULL:Full Resuscitation MAR Reviewed: Yes Vital Signs & Weight: Vital Signs (12 hours) Temp Pulse Resp BP Pulse Ox 03/28/18 20:00 97 03/28/18 19:42 97.9 F 119 H 22 H 122/75 97 03/28/18 16:21 97.7 F 100 18 107/74 97 03/28/18 11:23 98.1 F 110 H 16 134/75 97 Weight Admit Weight 224 lb 7 oz Weight 224 lb 7 oz I&O: 03/27/18 03/28/18 03/29/18 06:59 06:59 06:59 Intake Total 1350 1260 790 Output Total 550 500 100 Balance 800 760 690 Result Diagrams: 03/27/18 04:26 03/28/18 04:08 Phys Exam - Physical Examination Constitutional: NAD Respiratory: no wheezing, no rhonchi Cardiovascular: RRR, no rub Gastrointestinal: soft, non-tender, positive bowel sounds Musculoskeletal: no edema Neurological: moves all 4 limbs Dx/Plan - Plan plan discussed w/ family, continue antibiotics IMPRESSION: 1. Sepsis secondary to catheter-associated urinary tract infection. Cultures negative so far. Rojas dced today 2. Toxic metabolic encephalopathy secondary to #1. 3. Dehydration with Electrolyte abn (Hypomagnesemia, Hypophosphatemia) 4. Lactic acidosis. 5. Chronic kidney disease stage 2. 6. Chronically abnormal liver function tests. 7. Moderate protein calorie malnutrition. 8. Macrocytic anemia. 9. Folic acid deficiency. 10. Chronic atrial fibrillation, on anticoagulation. 11. Parkinson disease. 12. Vascular dementia. 13. Chronic anticoagulation. 14. Severe aortic stenosis. 15. Coronary artery disease, status post ST elevation [place] earlier this year. 16. History of cerebrovascular accident./ Chronic urinary retention PLAN: AM labs Replace Magnessium [address] Stokes Cont Ceftriaxone Cont current meds as below Await final cultures per ID Cont Cardizem/Anticaog DC to [facility] in AM if stable - Will check postvoid residual in AM Review of Systems - Review of Systems Respiratory: negative: Cough, Dry, Shortness of Breath, Hemoptysis, SOB with Excertion, Pleuritic Pain, Sputum, Wheezing Cardiovascular: negative: chest pain, palpitations, orthopnea, paroxysmal nocturnal dyspnea, edema, light headedness, other - Medications/Allergies Allergies/Adverse Reactions: Allergies Allergy/AdvReac Type Severity Reaction Status Date / Time Beta-Blockers Allergy Verified 02/27/18 14:05 (Beta-Adrenergic Bloc Medications: Current Medications Acetaminophen (Tylenol) 650 mg PO Q4H PRN PRN Reason: Headache/Fever/Mild Pain (1-3) Last Admin: 03/28/18 08:56 Dose: 650 mg Amantadine HCl (Symmetrel) 100 mg PO DAILY [facility] Last Admin: 03/28/18 08:59 Dose: 100 mg Apixaban (Eliquis) 5 mg PO BID [facility] Last Admin: 03/28/18 19:44 Dose: 5 mg Calcium Carbonate (Tums) 1,000 mg PO Q4H PRN PRN Reason: Heartburn or Indigestion Carbidopa/Levodopa (Sinemet 25-100) 1.5 tab PO 0700,1100,1500,1900 [facility] Last Admin: 03/28/18 18:32 Dose: 1.5 tab Clopidogrel Bisulfate (Plavix) 75 mg PO DAILY [facility] Last Admin: 03/28/18 08:59 Dose: 75 mg Diltiazem HCl (Cardizem Sr) 90 mg PO QID [facility] Last Admin: 03/28/18 19:44 Dose: 90 mg Famotidine (Pepcid) 20 mg PO DAILY [facility] Last Admin: 03/28/18 08:59 Dose: 20 mg Folic Acid (Folvite) 1 mg PO DAILY [facility] Last Admin: 03/28/18 08:59 Dose: 1 mg Hydralazine HCl (Apresoline) 5 mg SLOW IVP Q4H PRN PRN Reason: SBP Greater Than 180 Ceftriaxone Sodium 1 gm/ (Sodium Chloride) 100 mls @ 200 mls/hr IVPB DAILY [facility] Last Admin: 03/28/18 08:57 Dose: 100 mls Multivitamins (Theragran) 1 tab PO DAILY [facility] Last Admin: 03/28/18 08:59 Dose: 1 tab Ondansetron HCl (Zofran Odt) 4 mg PO Q6H PRN PRN Reason: Nausea/Vomiting Ondansetron HCl (Zofran) 4 mg IVP Q6H PRN PRN Reason: Nausea/Vomiting Phosphorus (Kphos Neutral) 250 mg PO TID-WM [facility] Last Admin: 03/28/18 16:39 Dose: 250 mg Polyethylene Glycol (Miralax) 17 gm PO DAILY [facility] Last Admin: 03/28/18 08:57 Dose: 17 gm Quetiapine Fumarate (Seroquel) 12.5 mg PO HS [facility] Last Admin: 03/28/18 19:44 Dose: 12.5 mg Sertraline HCl (Zoloft) 12.5 mg PO DAILY [facility] Last Admin: 03/28/18 08:58 Dose: 12.5 mg Tamsulosin HCl (Flomax) 0.4 mg PO HS [facility] Last Admin: 03/28/18 19:44 Dose: 0.4 mg
--- NOTE | 2018-03-28 21:57 | PRG ---
DATE OF SERVICE: 03/28/2018 SUBJECTIVE: The patient denies any pain. OBJECTIVE: VITAL SIGNS: Temperature 98.5, blood pressure 138/87, pulse 88, respiratory rate 18. ABDOMEN: Soft and nontender. EXTREMITIES: Edema, no improved. IMPRESSION: Orjas catheter removed today and the patient has been voiding. Residual has not been de termined yet. He is voiding into a diaper. He denies any complaints. PLAN: Check residual and replace Rojas catheter if emptying poorly.
[2018-03-29] MEDS: Carbidopa/Levodopa 25-100 mg Tablet PO SCH ×4 (05:56→16:26)
[2018-03-29] MEDS: K-Phos Neutral 250 MG TAB PO SCH ×3 (08:05→16:25)
[2018-03-29] MEDS: Diltiazem HCl SR 90 mg Capsule PO SCH ×5 (08:06→16:25)
[2018-03-29] MEDS: Clopidogrel Bisulfate 75 MG TAB PO SCH (08:07)
[2018-03-29] MEDS: Folic Acid 1 MG TAB PO SCH (08:08)
[2018-03-29] MEDS: cefTRIAXone\\ROCEPHIN 1 GM in Sodium Chloride 0.9% 100 ML IVPB SCH (08:08)
[2018-03-29] MEDS: Famotidine 20 MG TAB PO SCH (08:08)
[2018-03-29] MEDS: Apixaban 5 MG TAB PO SCH (08:08)
[2018-03-29] MEDS: Multivit, Therapeutic 1 TAB PO SCH (08:08)
[2018-03-29] MEDS: Polyethylene Glycol 3350 17 GM Packet PO SCH (08:09)
--- NOTE | 2018-03-29 15:33 | PDOC.PN ---
- Subjective Encounter Start Date: 03/29/18 Encounter Start Time: 15:32 Mr. Fitzgerald was seen in follow-up of UTI. He does not have any complaints. He says he wants to go home. - Objective Resuscitation Status: Resuscitation Status FULL:Full Resuscitation MAR Reviewed: Yes Vital Signs & Weight: Vital Signs (12 hours) Temp Pulse Resp BP Pulse Ox 03/29/18 12:18 98.0 F 119 H 20 131/73 97 03/29/18 08:00 97.7 F 118 H 18 102/73 93 L Weight Admit Weight 224 lb 7 oz Weight 224 lb 7 oz I&O: 03/28/18 03/29/18 03/30/18 06:59 06:59 06:59 Intake Total 1260 890 Output Total 500 101 Balance 760 789 Result Diagrams: 03/27/18 04:26 03/28/18 04:08 Phys Exam - Physical Examination HEENT: PERRLA Respiratory: wheezing present, clear to auscultation bilateral Cardiovascular: RRR, no rub, gallop 2/6 systolic blowing murmur Gastrointestinal: soft, non-tender, no distention, positive bowel sounds Musculoskeletal: edema present 2+ pitting edema in both ankles Dx/Plan - Plan * UTI- As per Dr. Stokes, antibiotics can be discontinued * He had a post void residual of over 500- will therefore replace the Rojas * He is wheezing on exam, and sounds a little wet- will give a dose of Lasix prior to discharge .
[2018-03-29] MEDS ORDERED: Furosemide 40 MG/4 ML VIAL SLOW IVP SCH (15:45)
[2018-03-29 17:14] VITALS: BP 142/78; TEMP 97.9
--- NOTE | 2018-03-29 23:15 | DIS ---
DATE OF ADMISSION: 03/25/2018 DATE OF DISCHARGE: 03/29/2018 DISCHARGE DIAGNOSES: Includes, 1. Urinary tract infection. 2. Urinary retention. 3. Metabolic encephalopathy. 4. Hypertension. 5. Chronic atrial fibrillation. 6. Parkinson's disease. DISCHARGE MEDICATIONS: Include Flomax 0.4 mg at bedtime, Seroquel 12.5 mg at bedtime, diltiazem 90 m g q.i.d., Sinemet 1.5 mg daily, Lipitor 10 mg daily, Zocor 25 mg one-half tablet daily, losartan 100 mg daily, hydrochlorothiazide 25 mg daily, folic acid 1 mg daily, famotidine 20 mg daily, Plavix 75 m g daily, Eliquis 5 mg twice a day, and amantadine 100 mg daily. CODE STATUS: FULL CODE. ALLERGIES: BETA BLOCKERS. HOSPITAL COURSE: Mr. Fitzgerald is a pleasant 83-year-old gentleman who was admitted to the hospital, aft er he was found to have altered mental status. When he was evaluated in the ER, he was found to have findings consistent with urinary tract infection. He was started on empiric antibiotics. Urine cul ture grew Stephanie species. Dr. Stokes was consulted and did not feel that this likely represented an invasive infection. He did give him 1 dose of micafungin and recommended discontinuing the antibioti cs. He was seen by Dr. Blas his urologist, who recommended checking for a postvoid residual. He did have significant postvoid residual of approximately 500 mL. For this reason, the Rojas was repla diana and he can continue the Flomax and see Dr. Blas in the outpatient setting. He will be dischar getrent back to the shelter today.
--- NOTE | 2018-03-30 20:29 | EKG ---
Test Reason : Blood Pressure : / mmHG Vent. Rate : 125 BPM Atrial Rate : 125 BPM P-R Int : 128 ms QRS Dur : 100 ms QT Int : 336 ms P-R-T Axes : 120 055 267 degrees QTc Int : 484 ms Atrial fibrillation Abnormal ECG When compared with ECG of 25-MAR-2018 13:36, (Unconfirmed) Ectopic atrial rhythm has replaced Atrial fibrillation Confirmed by Maria Luz RASMUSSEN ([id number]) on 03/30/2018 8:29:30 PM Referred By: SUDHIR Confirmed By:Maria Luz RASMUSSEN
--- NOTE | 2018-03-30 20:32 | EKG ---
Test Reason : Blood Pressure : / mmHG Vent. Rate : 117 BPM Atrial Rate : 117 BPM P-R Int : 136 ms QRS Dur : 100 ms QT Int : 326 ms P-R-T Axes : 079 059 267 degrees QTc Int : 454 ms Sinus tachycardia with occasional Premature ventricular complexes Abnormal ECG When compared with ECG of 26-MAR-2018 09:15, (Unconfirmed) Sinus rhythm has replaced Ectopic atrial rhythm Confirmed by Maria Luz RASMUSSEN ([id number]) on 03/30/2018 8:32:24 PM Referred By: SUDHIR Confirmed By:Maria Luz RASMUSSEN
== END 2018-03-29 18:49 | DRG 698 ==
LOC: ERS 13:31 → T4-B 17:00
PROVIDERS: ADMIT Internal Medicine; ATTEND Internal Medicine
DX: T83.511A Infection and inflammatory reaction due to indwelling urethral catheter, initial encounter (principal); A41.9 Sepsis, unspecified organism; G92 Toxic encephalopathy; E87.2 Acidosis; E44.0 Moderate protein-calorie malnutrition; I42.9 Cardiomyopathy, unspecified; N13.8 Other obstructive and reflux uropathy; N39.0 Urinary tract infection, site not specified; R33.9 Retention of urine, unspecified; I48.2 Chronic atrial fibrillation; I25.10 Atherosclerotic heart disease of native coronary artery without angina pectoris; E53.8 Deficiency of other specified B group vitamins; G20 Parkinson's disease; I35.0 Nonrheumatic aortic (valve) stenosis; I07.1 Rheumatic tricuspid insufficiency; F01.50 Vascular dementia, unspecified severity, without behavioral disturbance, psychotic disturbance, mood disturbance, and anxiety; E86.0 Dehydration; N18.2 Chronic kidney disease, stage 2 (mild); Z68.27 Body mass index [BMI] 27.0-27.9, adult; D53.9 Nutritional anemia, unspecified; N40.1 Benign prostatic hyperplasia with lower urinary tract symptoms; Z79.01 Long term (current) use of anticoagulants; I25.2 Old myocardial infarction; Z86.73 Personal history of transient ischemic attack (TIA), and cerebral infarction without residual deficits; Z95.5 Presence of coronary angioplasty implant and graft
CPT/HCPCS: 36415; 71045; 72220; 80048; 80053; 80069; 81003; 81015; 82274; 83605; 83735; 83880; 84100; 84132; 85025; 87040; 87086; 90471; 90670; 93005; 93010; 96361; 96365; G0009; G8978-GP-CN; G8979-GP-CL; G8987-GO-CL; G8988-GO-CJ; J0696; J1940; J2248; J7050

== ENCOUNTER 2018-04-30 11:35 | Inpatient (IN) | payer MEDICARE, BC ==
[2018-04-30 12:12] LABS: #Basophils 0.1 thou/uL (0.0-0.2); #Eosinphils 0.3 thou/uL (0.0-0.7); #Lymphocytes 2.7 thou/uL (1.20-3.40); #Monocytes 0.5 thou/uL (0.11-0.59); %Basophils 1.3 % (0.0-1.0); %Eosinophils 3.9 % (0.0-10.0); %Lymphocytes 35.7 % (21.0-51.0); %Monocytes 6.3 % (0.0-10.0); %Neutrophils 52.9 % (42.0-75.0); Hemoglobin 10.3 g/dL (14.0-18.0); Mean Corpuscular HGB CONC 30.8 g/dL (32.0-36.0); Mean Corpuscular Hemoglobin 30.7 pg (27.0-31.0); Mean Corpuscular Volume 99.4 fL (78.0-98.0); Mean Platelet Volume 6.8 fL (7.4-10.4); Platelet Count 307 thou/uL (130-400); RBC Distribution Width 14.5 % (11.5-14.5); Red Blood Cell (RBC) Count 3.36 mill/uL (4.70-6.10); White Blood Cell (WBC) Count 7.6 thou/uL (4.8-10.8)
[2018-04-30 12:13] LABS: Actual Bicarbonate (HCO3a) 24.1 mEq/L (22-28); Analyzer IN Cardio ER; Base Excess (BEa) 0.8 mEq/L (-2.0 to +3.0); CO2 Tension 34.1 mmHg (35.0-45.0); Calcium, Ionized 1.16 mmol/L (1.12-1.30); Carboxyhemoglobin (COHb) 0.3 gm% (0.0-3.0); Hemoglobin (Hb) 10.7 g/dL (14.0-18.0); O2 Tension (PaO2) 84.6 mmHg (> 60.0); Potassium - ABG Lab 3.23 mmol/L (3.70-5.30); Puncture Site RRA; pH, Arterial 7.47 (7.35-7.45)
[2018-04-30 12:14] LABS: ALV-art Gradient 43.895 (0-20)
--- NOTE | 2018-04-30 12:20 | RAD ---
PORTABLE CHEST 1 VIEW: Date: 04/30/18 Time: 1201 hours HISTORY: Dyspnea. FINDINGS: Comparison made with exam of 03/25/18. The heart is enlarged. There is pulmonary vascular congestion and bilateral pleural effusions, and ad jacent infiltrate/atelectatic changes. No pneumothoraces are seen. There are degenerative changes in the spine. IMPRESSION: Findings are suggestive of CHF. POS: KIMBER
[2018-04-30 12:24] LABS: INR-International Normal Ratio 1.7; PTT 39.2 SEC (22.9-36.1); Prothrombin Time 20.1 SEC (12.0-14.7)
[2018-04-30 12:39] LABS: ALT (SGPT) Less than 7 U/L (8-55); AST (SGOT) 15 U/L (5-34); Albumin 2.6 g/dL (3.4-4.8); Alkaline Phosphatase 82 U/L (40-150); Anion Gap 8 mmol/L (10-20); BUN (Urea Nitrogen) 18 mg/dL (8.4-25.7); Bilirubin, Total 1.3 mg/dL (0.2-1.2); CK (CPK) 80 U/L (30-200); Calc. Creatinine Clearance 0 mL/min (70-130); Calcium 8.6 mg/dL (7.8-10.44); Carbon Dioxide 27 mmol/L (23-31); Chloride 109 mmol/L (98-107); Estimated GFR-MDRD 86; Globulin 3.4 g/dL (2.4-3.5); Glucose 109 mg/dL (83-110); Potassium 3.3 mmol/L (3.5-5.1); Sodium 141 mmol/L (136-145)
[2018-04-30 12:42] LABS: Clarity CLOUDY (Clear); Specific Gravity, Urine 1.015 (1.005-1.030)
[2018-04-30 12:43] LABS: Leukocyte Large (Negative)
[2018-04-30 12:44] LABS: Bilirubin Negative (Negative); Blood, Urine Large (Negative); Glucose, Urine (Dipstick) Negative (Negative); Nitrite Positive (Negative); Protein, Urine (Dipstick) 100 mg/dL (Neg-Trace); Urobilinogen 0.2 mg/dL (0.2-1.0)
[2018-04-30 12:45] LABS: Bacteria/HPF 4+ HPF (None Seen); Hyaline Casts/LPF NONE SEEN LPF (0-3 Hyaline); RBC/HPF 21-50 HPF (0-3); WBC/HPF 21-50 HPF (0-3); Yeast-All Forms 3+ HPF (None Seen)
[2018-04-30 12:46] LABS: CKMB 4.2 ng/mL (0-6.6); Troponin I 0.062 ng/mL (< 0.028)
[2018-04-30] MEDS ORDERED: cefTRIAXone\\ROCEPHIN 1 GM VIAL ONE ×2 (13:17)
[2018-04-30] MEDS ORDERED: Furosemide 40 MG/4 ML VIAL ONE (13:17)
[2018-04-30] MEDS ORDERED: Acetaminophen 325 MG TAB PO PRN (15:23)
[2018-04-30 15:28] LABS: Troponin I 0.051 ng/mL (< 0.028)
[2018-04-30] MEDS ORDERED: Magnesium 2 GM/50 ML 2 GM in Premix Bag 1 BAG IVPB SCH (16:30)
[2018-04-30] MEDS ORDERED: Acetaminophen 325 MG TAB ONE (16:31)
[2018-04-30] MEDS: Potassium Chloride 20 MEQ TAB PO SCH (18:10)
[2018-04-30 18:34] LABS: Troponin I 0.061 ng/mL (< 0.028)
[2018-04-30 19:19] VITALS: BMI 29.0
--- NOTE | 2018-04-30 20:10 | HP ---
DATE OF ADMISSION: 04/30/2018 PRIMARY CARE PHYSICIAN: Geoffrey Paulino D.O. PRIMARY UROLOGIST: Gonzalez Blas M.D. CHIEF COMPLAINT: Shortness of breath. HISTORY OF PRESENT ILLNESS: The patient is an 83-year-old male with urinary retention with chronic i ndwelling Rojas catheter, severe aortic stenosis, was brought in by EMS from assisted living facility with worsening shortness of breath. The shortness of breath has been ongoing for a week. It got wo rse this morning. He also had some alteration in mentation according to the daughter at the bedside. No fever or chills reported. He had some cough without significant production. Lately, his legs h ave been swollen. He was evaluated by Cardiology, Dr. Pires and was started on diuretics without significant improvement in his symptoms. He acutely got short of breath today for which he was sent to the emergency room for evaluation. In the emergency room, he was placed on noninvasive positive pressure ventilation. He received 80 mg IV Lasix in the emergency room. PAST MEDICAL HISTORY: 1. Urinary retention with chronic indwelling Rojas catheter. 2. Recent hospitalization for UTI. 3. Chronic atrial fibrillation on anticoagulation. 4. Coronary artery disease, status post inferior ST elevation DC in November of this year, status post b are metal stent placement. 5. 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 6. Folic acid deficiency. 7. Parkinson's disease. 8. 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 9. Severe aortic stenosis. 10. Severe tricuspid regurgitation. 11. Vascular dementia. PAST SURGICAL HISTORY: 1. Ablation for atrial arrhythmia. 2. Cardiac catheterization. 3. Varicose vein surgery. 4. Right knee surgery. ALLERGIES: The patient is allergic to BETA BLOCKERS. CURRENT HOME MEDICATIONS: We will try to obtain an accurate list of medication from [facility]. The patient is unable to recall all of his home medication. SOCIAL HISTORY: He is full code, makes his own decision with the help of his family. The daughter i s the decision maker. FAMILY HISTORY: Negative for heart disease. REVIEW OF SYSTEMS: The following complete review of systems was negative, unless otherwise mentioned in the HPI or below: Constitutional: Weight loss or gain, ability to conduct usual activities. Sk in: Rash, itching. Eyes: Double vision, pain. ENT/Mouth: Nose bleeding, neck stiffness, pain, te nderness. Cardiovascular: Palpitations, dyspnea on exertion, orthopnea. Respiratory: Shortness of breath, wheezing, cough, hemoptysis, fever or night sweats. Gastrointestinal: Poor appetite, abdom inal pain, heartburn, nausea, vomiting, constipation, or diarrhea. Genitourinary: Urgency, frequenc y, dysuria, nocturia. Musculoskeletal: Pain, swelling. Neurologic/Psychiatric: Anxiety, depressio n. Allergy/Immunologic: Skin rash, bleeding tendency. PHYSICAL EXAMINATION: VITAL SIGNS: Temperature 97.7, respirations of 24, pulse rate of 94, blood pressure 120/84 with O2 s aturation of 100% on noninvasive positive pressure ventilation. HEENT: Head atraumatic, normocephalic. Sclerae are anicteric. Moist mucous membrane. No oral lesi on. NECK: Supple. No JVD. Neck veins somewhat distended. HEART: S1, S2 present. Rhythm was irregularly irregular. A 3/6 systolic ejection murmur over the a ortic area. There was also systolic murmur at the left lateral sternal border. LUNGS: Showed bibasilar crackles with rhonchi. There was accessory muscle use. No significant whee zing noted. ABDOMEN: Soft, nontender. Bowel sounds present. EXTREMITIES: 3+ edema in bilateral lower extremities. No calf tenderness. SKIN: Warm and dry. LYMPH NODES: No palpable lymph nodes in the neck. PERIPHERAL VASCULAR: Radial pulses palpable bilaterally. MUSCULOSKELETAL: No joint swelling or tenderness. SKIN: Warm and dry. NEUROLOGIC: Grossly nonfocal. Moves all 4 extremities. PSYCHIATRIC: Alert, awake, oriented x3. DIAGNOSTIC TESTS: EKG by my review showed paced rhythm with underlying atrial fibrillation. Chest x -ray by my review showed pulmonary vascular congestion. BNP was 815. Troponins in the indeterminate range at 0.051. Magnesium 1.5, potassium 3.3. WBC 7.6 with hemoglobin 10.3. Urinalysis showed 21- 50 wbc's with 4+ bacteria. Creatinine of 0.85. Chest x-ray by my review as discussed above. IMPRESSION: 1. Acute on chronic diastolic heart failure exacerbation, probably precipitated by underlying severe aortic stenosis. 2. Toxic metabolic encephalopathy, multifactorial. 3. Urinary tract infection, catheter-associated urinary tract infection. 4. Hypokalemia. 5. Hypomagnesemia. 6. Elevated troponins in the indeterminate range secondary to congestive heart failure/demand ischem ia. 7. Elevated liver function tests, probably secondary to passive hepatic congestion. 8. Hypoalbuminemia/moderate protein calorie malnutrition. 9. Acute hypoxic respiratory failure secondary to acute on chronic diastolic heart failure exacerbat ion. 10. Chronic atrial fibrillation on anticoagulation. 11. Coronary artery disease, status post inferior ST elevation myocardial infarction in November of this year. 12. History of cerebrovascular accident earlier this year. 13. Folic acid deficiency. 14. Parkinson's disease. 15. Deconditioning. 16. Vascular dementia. The patient will be monitored on the telemetry unit. After IV Lasix in the emergency room, his sympt oms are gradually improving. We will wean off BiPAP. We will continue oxygen by nasal cannula. We will hold IV diuretics for now due to severe aortic stenosis. We will consult Cardiology in a.m. Se rial troponins. Empiric antibiotics for urinary tract infection. Fall precautions. Plan of care was discussed with the patient and the family in detail. They stated understanding.
[2018-04-30] MEDS: Famotidine 20 MG TAB PO SCH (20:18)
[2018-04-30] MEDS: Senokot S 8.6-50 MG TAB PO SCH (20:18)
[2018-04-30] MEDS ORDERED: Zolpidem Tartrate 5 MG TAB PO PRN (20:45)
[2018-04-30] MEDS ORDERED: Potassium Chloride 20 MEQ TAB PO SCH (21:00)
[2018-04-30] MEDS: Apixaban 5 MG TAB PO SCH (21:50)
[2018-04-30] MEDS: Carbidopa/Levodopa 10-100 mg Tablet PO SCH (21:50)
[2018-04-30] MEDS: Atorvastatin Calcium 10 MG TAB PO SCH (21:50)
[2018-04-30] MEDS: Tamsulosin HCl 0.4 MG CAP PO SCH (21:50)
[2018-05-01] MEDS: Polyethylene Glycol 3350 17 GM Packet PO SCH (08:37)
[2018-05-01] MEDS: Folic Acid 1 MG TAB PO SCH (08:37)
[2018-05-01] MEDS: Carbidopa/Levodopa 10-100 mg Tablet PO SCH ×4 (08:37→20:28)
[2018-05-01] MEDS: Clopidogrel Bisulfate 75 MG TAB PO SCH (08:37)
[2018-05-01] MEDS: Digoxin 0.125 MG TAB PO SCH (08:37)
[2018-05-01] MEDS: cefTRIAXone\\ROCEPHIN 1 GM in Sodium Chloride 0.9% 100 ML IVPB SCH (08:37)
[2018-05-01] MEDS: Apixaban 5 MG TAB PO SCH ×2 (08:38→20:29)
[2018-05-01] MEDS: Famotidine 20 MG TAB PO SCH ×2 (08:39→20:29)
[2018-05-01] MEDS: Potassium Chloride 20 MEQ TAB PO SCH ×2 (08:39→16:29)
[2018-05-01] MEDS: Furosemide 20 MG TAB PO SCH (08:39)
[2018-05-01] MEDS: Senokot S 8.6-50 MG TAB PO SCH ×2 (08:39→20:28)
[2018-05-01] MEDS: Amantadine HCl 100 mg Capsule PO SCH (08:39)
[2018-05-01] MEDS ORDERED: Aspirin 81 mg Enteric Coated Tablet PO SCH (09:00)
[2018-05-01 14:35] LABS: Anion Gap 4 mmol/L (10-20); BUN (Urea Nitrogen) 14 mg/dL (8.4-25.7); Calc. Creatinine Clearance 108 mL/min (70-130); Calcium 8.2 mg/dL (7.8-10.44); Carbon Dioxide 31 mmol/L (23-31); Chloride 107 mmol/L (98-107); Digoxin 0.67 ng/mL (0.8-2.0); Estimated GFR-MDRD Greater than 90; Glucose 116 mg/dL (83-110); Magnesium 1.7 mg/dL (1.6-2.6); Potassium 3.3 mmol/L (3.5-5.1); Sodium 139 mmol/L (136-145)
--- NOTE | 2018-05-01 19:20 | CON ---
DATE OF CONSULTATION: 05/01/2018 REASON FOR CONSULTATION: Congestive heart failure. HISTORY OF PRESENT ILLNESS: Mr. Fitzgerald is a very pleasant 83-year-old gentleman who I have seen and e valuated in the past. He has a history of moderate aortic stenosis. He also has a history of atrial fibrillation and has been on anticoagulation therapy. During his last visit in the office, his rate was somewhat difficult to control. It is now been rate controlled. I visited with Mr. Sebastian today. He seemed a bit confused. His main complaint was shortness of breat h. No chest pain or pressure noted. He did have some altered mental status. PAST MEDICAL HISTORY: Moderate aortic stenosis diagnosed by angiography in the last 1-2 years, chron ic atrial fibrillation, previous UTI, previous CVA, previous ND, status post stent placement with bar e metal stent, TR, dementia, Parkinson disease. PAST SURGICAL HISTORY: Previous cardiac ablation, CAD status post stent placement, vein ablation. ALLERGIES: BETA BLOCKERS. SOCIAL HISTORY: No current tobacco or alcohol use. REVIEW OF SYSTEMS: Ten point review of system is reviewed as above, otherwise negative. CURRENT HOME MEDICATIONS: Amantadine, aspirin, carbidopa, Colace, digoxin, diltiazem, Eliquis, famot idine, folic acid, Lasix, Lipitor, MiraLax, Plavix, potassium, Seroquel, tamsulosin and vitamin B12. PHYSICAL EXAMINATION: VITAL SIGNS: Blood pressure 123/70, pulse 70, temperature 97. GENERAL: He is somewhat confused. NEUROLOGIC: The patient is alert and oriented times 3 with no focal neurologic deficits. HEENT: Sclerae without icterus. Mouth has moist mucous membranes with normal pallor. NECK: No JVD. Carotid upstroke brisk. No bruits bilaterally. LUNGS: Crackles noted bilaterally. BACK: No scoliosis or kyphosis. CARDIAC: Irregularly irregular. ABDOMEN: Soft, nontender, nondistended. No peritoneal signs present. No hepatosplenomegaly. No ab normal striae. EXTREMITIES: 1 to 2+ pitting edema. SKIN: No gross abnormalities. PERTINENT LABORATORY DATA: Hemoglobin 10.3, creatinine 0.78, potassium 3.3. Peak troponin 0.061. B CONDUIT WORKER of 815. IMPRESSION: 1. New onset congestive heart failure. 2. Atrial fibrillation. 3. Moderate aortic stenosis diagnosed on angiography performed on 01/2016. RECOMMENDATIONS: At this point, I would continue conservative therapy. His last echo in the office dated 03/11/2017. We would recommend repeating his echo, both assess his LVEF and assess his valve. His valve area was felt to be 1.1 on angio. At this point, I recommend conservative therapy. Mr. Jazmin vicente over the last several months has continued to decline from a clinical standpoint.
[2018-05-01] MEDS: Atorvastatin Calcium 10 MG TAB PO SCH (20:28)
[2018-05-01] MEDS: Tamsulosin HCl 0.4 MG CAP PO SCH (20:29)
--- NOTE | 2018-05-01 20:53 | PDOC.PN ---
- Subjective Encounter Start Date: 05/01/18 Encounter Start Time: 11:00 Patient seen and examined for CHF exacerbation. SOB improving. No new complaints. No overnight events - Objective Resuscitation Status: Resuscitation Status FULL:Full Resuscitation MAR Reviewed: Yes Vital Signs & Weight: Vital Signs (12 hours) Temp Pulse Pulse Pulse Resp BP BP 05/01/18 15:15 97 F L 78 18 05/01/18 11:35 97.4 F L 78 20 05/01/18 10:05 81 83 109/61 125/62 BP Pulse Ox 05/01/18 15:15 123/70 96 05/01/18 11:35 121/65 97 05/01/18 10:05 Weight Weight 238 lb 1.6 oz I&O: 04/30/18 05/01/18 05/02/18 06:59 06:59 06:59 Intake Total 270 960 Output Total 2550 800 Balance -2280 160 Result Diagrams: 04/30/18 11:56 05/01/18 14:08 EKG Reviewed by me: Yes (Tele Afib) Phys Exam - Physical Examination Constitutional: NAD Respiratory: no wheezing, no rhonchi Bibasilar rales, No accessory muscle use Cardiovascular: no rub S1S2 +, Irregular, 3/6 VILMA A area Gastrointestinal: soft, non-tender, no distention, positive bowel sounds Musculoskeletal: pulses present, edema present Neurological: non-focal, normal sensation, moves all 4 limbs Psychiatric: normal affect, A&O x 3 Dx/Plan - Plan 1. Acute on chronic diastolic heart failure exacerbation, probably precipitated by underlying severe aortic stenosis. 2. Toxic metabolic encephalopathy, multifactorial. 3. Urinary tract infection, catheter-associated urinary tract infection. 4. Hypokalemia. 5. Hypomagnesemia. 6. Elevated troponins in the indeterminate range secondary to congestive heart failure/demand ischemia. 7. Elevated liver function tests, probably secondary to passive hepatic congestion. 8. Hypoalbuminemia/moderate protein calorie malnutrition. 9. Acute hypoxic respiratory failure secondary to acute on chronic diastolic heart failure exacerbation. 10. Chronic atrial fibrillation on anticoagulation. 11. Coronary artery disease, status post inferior ST elevation myocardial infarction in November of this year. 12. History of cerebrovascular accident earlier this year. 13. Folic acid deficiency. 14. Parkinson's disease. 15. Deconditioning. 16. Vascular dementia. PLAN: Cont PO Lasix Echo Replace Electrolytes Cont current meds as below Cont Atbx pending cultures AM labs Review of Systems - Review of Systems Cardiovascular: negative: chest pain, palpitations, orthopnea, paroxysmal nocturnal dyspnea, edema, light headedness, other Gastrointestinal: negative: Nausea, Vomiting, Abdominal Pain, Diarrhea, Constipation, Melena, Hematochezia, Other - Medications/Allergies Allergies/Adverse Reactions: Allergies Allergy/AdvReac Type Severity Reaction Status Date / Time Beta-Blockers Allergy Verified 02/27/18 14:05 (Beta-Adrenergic Bloc Medications: Current Medications Acetaminophen (Tylenol) 650 mg PO Q4H PRN PRN Reason: Headache/Fever or Mild Pain Amantadine HCl (Symmetrel) 100 mg PO DAILY [facility] Last Admin: 05/01/18 08:39 Dose: 100 mg Apixaban (Eliquis) 5 mg PO BID [facility] Last Admin: 05/01/18 20:29 Dose: 5 mg Atorvastatin Calcium (Lipitor) 10 mg PO HS [facility] Last Admin: 05/01/18 20:28 Dose: 10 mg Carbidopa/Levodopa (Sinemet 10/100) 1.5 tab PO QID [facility] Last Admin: 05/01/18 20:28 Dose: 1.5 tab Clopidogrel Bisulfate (Plavix) 75 mg PO DAILY [facility] Last Admin: 05/01/18 08:37 Dose: 75 mg Digoxin (Lanoxin) 0.125 mg PO DAILY [facility] Last Admin: 05/01/18 08:37 Dose: 0.125 mg Diltiazem HCl (Cardizem) 90 mg PO QID [facility] Last Admin: 05/01/18 20:30 Dose: 90 mg Famotidine (Pepcid) 20 mg PO BID [facility] Last Admin: 05/01/18 20:29 Dose: 20 mg Folic Acid (Folvite) 1 mg PO DAILY [facility] Last Admin: 05/01/18 08:37 Dose: 1 mg Furosemide (Lasix) 20 mg PO DAILY [facility] Last Admin: 05/01/18 08:39 Dose: 20 mg Ceftriaxone Sodium 1 gm/ (Sodium Chloride) 100 mls @ 200 mls/hr IVPB DAILY [facility] Last Admin: 05/01/18 08:37 Dose: 100 mls Polyethylene Glycol (Miralax) 17 gm PO DAILY [facility] Last Admin: 05/01/18 08:37 Dose: 17 gm Potassium Chloride (K-Dur) 20 meq PO BID-[facility] Last Admin: 05/01/18 16:29 Dose: 20 meq Quetiapine Fumarate (Seroquel) 25 mg PO HS [facility] Last Admin: 05/01/18 20:29 Dose: 25 mg Senna/Docusate Sodium (Senokot S) 1 tab PO BID [facility] Last Admin: 05/01/18 20:28 Dose: 1 tab Sodium Chloride (Flush - Normal Saline) 10 ml IVF PRN PRN PRN Reason: Saline Flush Last Admin: 04/30/18 20:20 Dose: 10 ml Tamsulosin HCl (Flomax) 0.4 mg PO [facility] Last Admin: 05/01/18 20:29 Dose: 0.4 mg Zolpidem Tartrate (Ambien) 5 mg PO HSPRN PRN PRN Reason: Insomnia
--- NOTE | 2018-05-02 06:25 | PDOC.CTH ---
Cardiology Progress Note - Subjective pt more lucid today but still somewhat confused. Recognizes me but unsure of where he is - Objective Vital Signs Temp Pulse Resp BP Pulse Ox 05/02/18 04:35 97.5 F L 87 21 H 129/60 96 05/02/18 03:24 96.7 F L 67 20 98 05/01/18 20:15 98.2 F 67 14 137/61 96 Weight 238 lb 04/30/18 05/01/18 05/02/18 06:59 06:59 06:59 Intake Total 270 1230 Output Total 2550 1250 Balance -2280 -20 - Physical Examination General/Neuro: NAD Neck: no JVD present Lungs: CTA, unlabored respirations Heart: other: (2/6 VILMA IRR) Abdomen: NT/ND, soft Extremities: + edema B - Labs Result Diagrams: 04/30/18 11:56 05/01/18 14:08 Troponin/CKMB CK-MB (CK-2) 4.2 ng/mL (0-6.6) 04/30/18 11:54 Troponin I 0.061 ng/mL (< 0.028) H 04/30/18 17:59 - Assessment/Plan Acute on chronic systolic HF Afib Moderate to severe Advanced Parkinson Delerium More lucid today Echo still pending Pt likey with severe Recommend his MS improve prior to discussing options for treatment Last cath in 2015 with RUBY 1.1 On ACT
[2018-05-02] MEDS: cefTRIAXone\\ROCEPHIN 1 GM in Sodium Chloride 0.9% 100 ML IVPB SCH (09:44)
[2018-05-02] MEDS: Amantadine HCl 100 mg Capsule PO SCH (09:45)
[2018-05-02] MEDS: Senokot S 8.6-50 MG TAB PO SCH ×2 (09:46→21:48)
[2018-05-02] MEDS: Potassium Chloride 20 MEQ TAB PO SCH ×2 (09:47→17:03)
[2018-05-02] MEDS: Furosemide 20 MG TAB PO SCH (09:47)
[2018-05-02] MEDS: Apixaban 5 MG TAB PO SCH ×2 (09:47→21:46)
[2018-05-02] MEDS: Digoxin 0.125 MG TAB PO SCH (09:47)
[2018-05-02] MEDS: Famotidine 20 MG TAB PO SCH ×2 (09:48→21:49)
[2018-05-02] MEDS: Carbidopa/Levodopa 10-100 mg Tablet PO SCH ×4 (09:48→21:44)
[2018-05-02] MEDS: Folic Acid 1 MG TAB PO SCH (09:48)
[2018-05-02] MEDS: Polyethylene Glycol 3350 17 GM Packet PO SCH (09:49)
[2018-05-02] MEDS: Clopidogrel Bisulfate 75 MG TAB PO SCH (09:53)
[2018-05-02 20:22] LABS: #Basophils 0.1 thou/uL (0.0-0.2); #Eosinphils 0.4 thou/uL (0.0-0.7); #Lymphocytes 1.8 thou/uL (1.20-3.40); #Monocytes 0.5 thou/uL (0.11-0.59); #Neutrophils 3.4 thou/uL (1.40-6.50); %Basophils 1.2 % (0.0-1.0); %Eosinophils 6.4 % (0.0-10.0); %Lymphocytes 28.7 % (21.0-51.0); %Monocytes 8.4 % (0.0-10.0); %Neutrophils 55.3 % (42.0-75.0); Hemoglobin 10.3 g/dL (14.0-18.0); Mean Corpuscular HGB CONC 30.5 g/dL (32.0-36.0); Mean Corpuscular Hemoglobin 30.5 pg (27.0-31.0); Mean Platelet Volume 6.7 fL (7.4-10.4); Platelet Count 259 thou/uL (130-400); RBC Distribution Width 14.3 % (11.5-14.5); Red Blood Cell (RBC) Count 3.36 mill/uL (4.70-6.10); White Blood Cell (WBC) Count 6.1 thou/uL (4.8-10.8)
--- NOTE | 2018-05-02 20:28 | PDOC.PN ---
- Subjective Encounter Start Date: 05/02/18 Encounter Start Time: 09:00 Patient seen and examined for CHF flare. SOB improving. No new complaints. No overnight events - Objective Resuscitation Status: Resuscitation Status FULL:Full Resuscitation MAR Reviewed: Yes Vital Signs & Weight: Vital Signs (12 hours) Temp Pulse Resp BP Pulse Ox 05/02/18 16:00 97.9 F 68 18 121/69 92 L 05/02/18 12:00 99.2 F 102 H 17 133/76 92 L 05/02/18 09:47 87 Weight Weight 238 lb I&O: 05/01/18 05/02/18 05/03/18 06:59 06:59 06:59 Intake Total 270 1230 640 Output Total 2550 1250 500 Balance -2280 -20 140 Result Diagrams: 05/02/18 20:09 05/01/18 14:08 EKG Reviewed by me: Yes (Tele Afib) Phys Exam - Physical Examination Constitutional: NAD Respiratory: no wheezing, no rhonchi Cardiovascular: no rub, irregular Gastrointestinal: soft, non-tender, positive bowel sounds Neurological: moves all 4 limbs Dx/Plan - Plan 1. Acute on chronic diastolic heart failure exacerbation, probably precipitated by underlying severe aortic stenosis. 2. Toxic metabolic encephalopathy, multifactorial. 3. Urinary tract infection, catheter-associated urinary tract infection. 4. Hypokalemia. 5. Hypomagnesemia. 6. Elevated troponins in the indeterminate range secondary to congestive heart failure/demand ischemia. 7. Elevated liver function tests, probably secondary to passive hepatic congestion. 8. Hypoalbuminemia/moderate protein calorie malnutrition. 9. Acute hypoxic respiratory failure secondary to acute on chronic diastolic heart failure exacerbation. 10. Chronic atrial fibrillation on anticoagulation. 11. Coronary artery disease, status post inferior ST elevation myocardial infarction in November of this year. 12. History of cerebrovascular accident earlier this year. 13. Folic acid deficiency. 14. Parkinson's disease. 15. Deconditioning. 16. Vascular dementia. PLAN: Echo pending Replace Potassium Cont oral Lasix at current dose Cont current meds as below Cont Atbx AM labs Review of Systems - Review of Systems Respiratory: SOB with Excertion. negative: Cough, Dry, Shortness of Breath, Hemoptysis, Pleuritic Pain, Sputum, Wheezing Gastrointestinal: negative: Nausea, Vomiting, Abdominal Pain, Diarrhea, Constipation, Melena, Hematochezia, Other - Medications/Allergies Allergies/Adverse Reactions: Allergies Allergy/AdvReac Type Severity Reaction Status Date / Time Beta-Blockers Allergy Verified 02/27/18 14:05 (Beta-Adrenergic Bloc Medications: Current Medications Acetaminophen (Tylenol) 650 mg PO Q4H PRN PRN Reason: Headache/Fever or Mild Pain Amantadine HCl (Symmetrel) 100 mg PO DAILY [facility] Last Admin: 05/02/18 09:45 Dose: 100 mg Apixaban (Eliquis) 5 mg PO BID [facility] Last Admin: 05/02/18 09:47 Dose: 5 mg Atorvastatin Calcium (Lipitor) 10 mg PO [facility] Last Admin: 05/01/18 20:28 Dose: 10 mg Carbidopa/Levodopa (Sinemet 10/100) 1.5 tab PO QID [facility] Last Admin: 05/02/18 17:01 Dose: 1.5 tab Clopidogrel Bisulfate (Plavix) 75 mg PO DAILY [facility] Last Admin: 05/02/18 09:53 Dose: 75 mg Digoxin (Lanoxin) 0.125 mg PO DAILY [facility] Last Admin: 05/02/18 09:47 Dose: 0.125 mg Diltiazem HCl (Cardizem) 90 mg PO QID [facility] Last Admin: 05/02/18 17:02 Dose: 90 mg Famotidine (Pepcid) 20 mg PO BID [facility] Last Admin: 05/02/18 09:48 Dose: 20 mg Folic Acid (Folvite) 1 mg PO DAILY [facility] Last Admin: 05/02/18 09:48 Dose: 1 mg Furosemide (Lasix) 20 mg PO DAILY [facility] Last Admin: 05/02/18 09:47 Dose: 20 mg Ceftriaxone Sodium 1 gm/ (Sodium Chloride) 100 mls @ 200 mls/hr IVPB DAILY [facility] Last Admin: 05/02/18 09:44 Dose: 100 mls Polyethylene Glycol (Miralax) 17 gm PO DAILY [facility] Last Admin: 05/02/18 09:49 Dose: Not Given Potassium Chloride (K-Dur) 20 meq PO BID-[facility] Last Admin: 05/02/18 17:03 Dose: 20 meq Quetiapine Fumarate (Seroquel) 25 mg PO [facility] Last Admin: 05/01/18 20:29 Dose: 25 mg Senna/Docusate Sodium (Senokot S) 1 tab PO BID [facility] Last Admin: 05/02/18 09:46 Dose: 1 tab Sodium Chloride (Flush - Normal Saline) 10 ml IVF PRN PRN PRN Reason: Saline Flush Last Admin: 04/30/18 20:20 Dose: 10 ml Tamsulosin HCl (Flomax) 0.4 mg PO HS [facility] Last Admin: 05/01/18 20:29 Dose: 0.4 mg Zolpidem Tartrate (Ambien) 5 mg PO HSPRN PRN PRN Reason: Insomnia
[2018-05-02 20:40] LABS: Anion Gap 11 mmol/L (10-20); BUN (Urea Nitrogen) 15 mg/dL (8.4-25.7); Calc. Creatinine Clearance 98 mL/min (70-130); Carbon Dioxide 26 mmol/L (23-31); Chloride 109 mmol/L (98-107); Estimated GFR-MDRD 85; Potassium 3.7 mmol/L (3.5-5.1); Sodium 142 mmol/L (136-145)
[2018-05-02 20:41] LABS: Calcium 8.2 mg/dL (7.8-10.44); Glucose 133 mg/dL (83-110); Magnesium 1.5 mg/dL (1.6-2.6)
[2018-05-02] MEDS: Atorvastatin Calcium 10 MG TAB PO SCH (21:46)
[2018-05-02] MEDS: Tamsulosin HCl 0.4 MG CAP PO SCH (21:48)
[2018-05-03 06:07] LABS: Anion Gap 6 mmol/L (10-20); BUN (Urea Nitrogen) 15 mg/dL (8.4-25.7); Calc. Creatinine Clearance 109 mL/min (70-130); Calcium 8.3 mg/dL (7.8-10.44); Carbon Dioxide 30 mmol/L (23-31); Chloride 110 mmol/L (98-107); Estimated GFR-MDRD Greater than 90; Glucose 104 mg/dL (83-110); Magnesium 1.6 mg/dL (1.6-2.6); Potassium 3.5 mmol/L (3.5-5.1); Sodium 142 mmol/L (136-145)
[2018-05-03] MEDS ORDERED: Magnesium 2 GM/50 ML 2 GM in Premix Bag 1 BAG IVPB SCH (08:00)
[2018-05-03] MEDS: Polyethylene Glycol 3350 17 GM Packet PO SCH (08:48)
[2018-05-03] MEDS: Carbidopa/Levodopa 10-100 mg Tablet PO SCH ×4 (08:49→21:26)
[2018-05-03] MEDS: Senokot S 8.6-50 MG TAB PO SCH ×2 (08:50→21:25)
[2018-05-03] MEDS: Clopidogrel Bisulfate 75 MG TAB PO SCH (08:50)
[2018-05-03] MEDS: Amantadine HCl 100 mg Capsule PO SCH (08:50)
[2018-05-03] MEDS: Digoxin 0.125 MG TAB PO SCH (08:50)
[2018-05-03] MEDS: Potassium Chloride 20 MEQ TAB PO SCH ×3 (08:50→17:00)
[2018-05-03] MEDS: Folic Acid 1 MG TAB PO SCH (08:51)
[2018-05-03] MEDS: Furosemide 20 MG TAB PO SCH (08:51)
[2018-05-03] MEDS: Apixaban 5 MG TAB PO SCH ×2 (08:51→21:27)
[2018-05-03] MEDS: cefTRIAXone\\ROCEPHIN 1 GM in Sodium Chloride 0.9% 100 ML IVPB SCH (08:51)
[2018-05-03] MEDS: Famotidine 20 MG TAB PO SCH ×2 (08:51→21:25)
--- NOTE | 2018-05-03 13:30 | PDOC.PN ---
- Subjective Encounter Start Date: 05/03/18 Encounter Start Time: 10:30 Patient seen and examined for CHF. SOB improving. No new complaints. No overnight events - Objective Resuscitation Status: Resuscitation Status FULL:Full Resuscitation MAR Reviewed: Yes Vital Signs & Weight: Vital Signs (12 hours) Temp Pulse Resp BP Pulse Ox 05/03/18 11:16 97.6 F 85 14 139/69 96 05/03/18 08:50 73 05/03/18 08:00 97.8 F 73 18 128/78 96 05/03/18 04:05 97.5 F L 76 20 127/71 100 Weight Weight 237 lb 14.4 oz I&O: 05/02/18 05/03/18 05/04/18 06:59 06:59 06:59 Intake Total 1230 990 Output Total 1250 1050 Balance -60 Result Diagrams: 05/02/18 20:09 05/03/18 05:17 EKG Reviewed by me: Yes (Tele Afib with NSVT earlier) Phys Exam - Physical Examination Constitutional: NAD Respiratory: no wheezing, no rhonchi Cardiovascular: no rub, irregular Gastrointestinal: soft, non-tender, positive bowel sounds Musculoskeletal: no edema Neurological: moves all 4 limbs Dx/Plan - Plan 1. Acute on chronic diastolic heart failure exacerbation, probably precipitated by underlying severe aortic stenosis. 2. NSVT 3. Toxic metabolic encephalopathy prob due to catheter-associated UTI 4. Hypokalemia. 5. Hypomagnesemia. 6. Elevated troponins in the indeterminate range secondary to congestive heart failure/demand ischemia. 7. Elevated liver function tests, probably secondary to passive hepatic congestion. 8. Hypoalbuminemia/moderate protein calorie malnutrition. 9. Acute hypoxic respiratory failure secondary to acute on chronic diastolic heart failure exacerbation. 10. Chronic atrial fibrillation on anticoagulation. 11. Coronary artery disease, status post inferior ST elevation myocardial infarction in November of this year. 12. History of cerebrovascular accident earlier this year. 13. Folic acid deficiency. 14. Parkinson's disease. 15. Deconditioning. 16. Vascular dementia. PLAN: Echo pending Replace Potassium/Magnessium Cont Atbx/ Lasix Cont other meds as below AM labs Review of Systems - Review of Systems Respiratory: negative: Cough, Dry, Shortness of Breath, Hemoptysis, SOB with Excertion, Pleuritic Pain, Sputum, Wheezing Cardiovascular: negative: chest pain, palpitations, orthopnea, paroxysmal nocturnal dyspnea, edema, light headedness, other - Medications/Allergies Allergies/Adverse Reactions: Allergies Allergy/AdvReac Type Severity Reaction Status Date / Time Beta-Blockers Allergy Verified 02/27/18 14:05 (Beta-Adrenergic Bloc Medications: Current Medications Acetaminophen (Tylenol) 650 mg PO Q4H PRN PRN Reason: Headache/Fever or Mild Pain Amantadine HCl (Symmetrel) 100 mg PO DAILY [facility] Last Admin: 05/03/18 08:50 Dose: 100 mg Apixaban (Eliquis) 5 mg PO BID [facility] Last Admin: 05/03/18 08:51 Dose: 5 mg Atorvastatin Calcium (Lipitor) 10 mg PO HS [facility] Last Admin: 05/02/18 21:46 Dose: 10 mg Carbidopa/Levodopa (Sinemet ) 1.5 tab PO QID [facility] Last Admin: 05/03/18 12:19 Dose: 1.5 tab Clopidogrel Bisulfate (Plavix) 75 mg PO DAILY [facility] Last Admin: 05/03/18 08:50 Dose: 75 mg Digoxin (Lanoxin) 0.125 mg PO DAILY [facility] [place] Last Admin: 05/03/18 08:50 Dose: 0.125 mg Diltiazem HCl (Cardizem) 90 mg PO QID [facility] Last Admin: 05/03/18 12:20 Dose: 90 mg Famotidine (Pepcid) 20 mg PO BID [facility] Last Admin: 05/03/18 08:51 Dose: 20 mg Folic Acid (Folvite) 1 mg PO DAILY [facility] Last Admin: 05/03/18 08:51 Dose: 1 mg Furosemide (Lasix) 20 mg PO DAILY [facility] [place] Last Admin: 05/03/18 08:51 Dose: 20 mg Ceftriaxone Sodium 1 gm/ (Sodium Chloride) 100 mls @ 200 mls/hr IVPB DAILY [facility] [place] Last Admin: 05/03/18 08:51 Dose: 100 mls Magnesium Sulfate 2 gm/ Device 50 mls @ 50 mls/hr IVPB 1400 [facility] Polyethylene Glycol (Miralax) 17 gm PO DAILY [facility] Last Admin: 05/03/18 08:48 Dose: 17 gm Potassium Chloride (K-Dur) 20 meq PO TID[facility] Last Admin: 05/03/18 12:20 Dose: 20 meq Quetiapine Fumarate (Seroquel) 25 mg PO HS [facility] Last Admin: 05/02/18 21:47 Dose: 25 mg Senna/Docusate Sodium (Senokot S) 1 tab PO BID [facility] Last Admin: 05/03/18 08:50 Dose: 1 tab Sodium Chloride (Flush - Normal Saline) 10 ml IVF PRN PRN PRN Reason: Saline Flush Last Admin: 05/02/18 21:58 Dose: 10 ml Tamsulosin HCl (Flomax) 0.4 mg PO [facility] Last Admin: 05/02/18 21:48 Dose: 0.4 mg Zolpidem Tartrate (Ambien) 5 mg PO HSPRN PRN PRN Reason: Insomnia
[2018-05-03] MEDS: Magnesium 2 GM/50 ML 2 GM in Premix Bag 1 BAG IVPB SCH (13:40)
[2018-05-03] MEDS: Tamsulosin HCl 0.4 MG CAP PO SCH (21:25)
[2018-05-03] MEDS: Atorvastatin Calcium 10 MG TAB PO SCH (21:27)
[2018-05-04 05:19] LABS: #Basophils 0.1 thou/uL (0.0-0.2); #Eosinphils 0.4 thou/uL (0.0-0.7); #Lymphocytes 2.1 thou/uL (1.20-3.40); #Monocytes 0.5 thou/uL (0.11-0.59); #Neutrophils 3.5 thou/uL (1.40-6.50); %Eosinophils 6.6 % (0.0-10.0); %Lymphocytes 31.6 % (21.0-51.0); %Monocytes 8.1 % (0.0-10.0); %Neutrophils 52.7 % (42.0-75.0); Hemoglobin 9.7 g/dL (14.0-18.0); Mean Corpuscular HGB CONC 31.4 g/dL (32.0-36.0); Mean Corpuscular Hemoglobin 31.4 pg (27.0-31.0); Mean Platelet Volume 6.7 fL (7.4-10.4); Platelet Count 249 thou/uL (130-400); RBC Distribution Width 14.2 % (11.5-14.5); Red Blood Cell (RBC) Count 3.08 mill/uL (4.70-6.10); White Blood Cell (WBC) Count 6.7 thou/uL (4.8-10.8)
[2018-05-04 05:37] LABS: Anion Gap 7 mmol/L (10-20); BUN (Urea Nitrogen) 14 mg/dL (8.4-25.7); Calc. Creatinine Clearance 112 mL/min (70-130); Calcium 8.2 mg/dL (7.8-10.44); Carbon Dioxide 28 mmol/L (23-31); Chloride 109 mmol/L (98-107); Estimated GFR-MDRD Greater than 90; Glucose 106 mg/dL (83-110); Magnesium 1.8 mg/dL (1.6-2.6); Potassium 3.6 mmol/L (3.5-5.1); Sodium 140 mmol/L (136-145)
[2018-05-04] MEDS: Polyethylene Glycol 3350 17 GM Packet PO SCH (09:24)
[2018-05-04] MEDS: cefTRIAXone\\ROCEPHIN 1 GM in Sodium Chloride 0.9% 100 ML IVPB SCH (09:24)
[2018-05-04] MEDS: Potassium Chloride 20 MEQ TAB PO SCH ×3 (09:25→16:29)
[2018-05-04] MEDS: Carbidopa/Levodopa 10-100 mg Tablet PO SCH ×5 (09:25→22:18)
[2018-05-04] MEDS: Saccharomyces boulardii 250 MG CAP PO SCH (09:25)
[2018-05-04] MEDS: Clopidogrel Bisulfate 75 MG TAB PO SCH (09:26)
[2018-05-04] MEDS: Senokot S 8.6-50 MG TAB PO SCH ×2 (09:26→22:12)
[2018-05-04] MEDS: Folic Acid 1 MG TAB PO SCH (09:26)
[2018-05-04] MEDS: Furosemide 20 MG TAB PO SCH (09:26)
[2018-05-04] MEDS: Apixaban 5 MG TAB PO SCH ×2 (09:26→22:12)
[2018-05-04] MEDS: Digoxin 0.125 MG TAB PO SCH (09:26)
[2018-05-04] MEDS: Famotidine 20 MG TAB PO SCH ×2 (09:26→22:12)
[2018-05-04] MEDS: Amantadine HCl 100 mg Capsule PO SCH (09:26)
[2018-05-04] MEDS ORDERED: Clopidogrel Bisulfate 75 MG TAB ONE (13:12)
[2018-05-04] MEDS: Magnesium 2 GM/50 ML 2 GM in Premix Bag 1 BAG IVPB SCH (13:25)
--- NOTE | 2018-05-04 21:44 | PDOC.PN ---
- Subjective Encounter Start Date: 05/04/18 Encounter Start Time: 08:30 Patient seen and examined for CHF. SOB improving. No CP. No new complaints. No overnight events - Objective Resuscitation Status: Resuscitation Status FULL:Full Resuscitation MAR Reviewed: Yes Vital Signs & Weight: Vital Signs (12 hours) Temp Pulse Resp BP Pulse Ox 05/04/18 16:25 97.3 F L 88 20 122/64 96 05/04/18 12:00 98.5 F 95 18 132/79 96 Weight Weight 233 lb 12.8 oz I&O: 05/03/18 05/04/18 05/05/18 06:59 06:59 06:59 Intake Total 940 659 9600 Output Total 1050 1000 Balance -60 -80 1080 Result Diagrams: 05/04/18 04:44 05/04/18 04:44 EKG Reviewed by me: Yes (Tele - Afib) Phys Exam - Physical Examination Constitutional: NAD Respiratory: no wheezing, no rhonchi Cardiovascular: no rub, irregular Gastrointestinal: soft, non-tender, positive bowel sounds Musculoskeletal: no edema Neurological: moves all 4 limbs Dx/Plan - Plan 1. Acute on chronic diastolic heart failure exacerbation/Severe aortic stenosis. 2. NSVT 3. Toxic metabolic encephalopathy prob due to catheter-associated UTI 4. Hypokalemia. 5. Hypomagnesemia. 6. Elevated troponins in the indeterminate range secondary to congestive heart failure/demand ischemia. 7. Elevated liver function tests, probably secondary to passive hepatic congestion. 8. Hypoalbuminemia/moderate protein calorie malnutrition. 9. Acute hypoxic respiratory failure secondary to acute on chronic diastolic heart failure exacerbation. 10. Chronic atrial fibrillation on anticoagulation. 11. Coronary artery disease, status post inferior ST elevation myocardial infarction in November of this year. 12. History of cerebrovascular accident earlier this year. 13. Folic acid deficiency. 14. Parkinson's disease. 15. Deconditioning. 16. Vascular dementia. PLAN: Await Echo Cont PO Lasix Cont Lasix Cont other meds as below AM labs Microbiology 04/30/18 11:52 Urine suazo catheter Urine Culture - Final 04/30/18 11:54 Venous blood - Left Hand Blood Culture - Preliminary NO GROWTH AT 48 HOURS 04/30/18 11:54 Venous blood - Left Arm Blood Culture - Preliminary NO GROWTH AT 48 HOURS Laboratory Tests 05/03/18 05:17 Magnesium 1.6 Review of Systems - Review of Systems Cardiovascular: negative: chest pain, palpitations, orthopnea, paroxysmal nocturnal dyspnea, edema, light headedness, other Gastrointestinal: negative: Nausea, Vomiting, Abdominal Pain, Diarrhea, Constipation, Melena, Hematochezia, Other - Medications/Allergies Allergies/Adverse Reactions: Allergies Allergy/AdvReac Type Severity Reaction Status Date / Time Beta-Blockers Allergy Verified 02/27/18 14:05 (Beta-Adrenergic Bloc Medications: Current Medications Acetaminophen (Tylenol) 650 mg PO Q4H PRN PRN Reason: Headache/Fever or Mild Pain Amantadine HCl (Symmetrel) 100 mg PO DAILY [facility] Last Admin: 05/04/18 09:26 Dose: 100 mg Apixaban (Eliquis) 5 mg PO BID [facility] Last Admin: 05/04/18 09:26 Dose: 5 mg Atorvastatin Calcium (Lipitor) 10 mg PO HS [facility] Last Admin: 05/03/18 21:27 Dose: 10 mg Carbidopa/Levodopa (Sinemet 10/100) 1.5 tab PO QID [facility] Last Admin: 05/04/18 16:34 Dose: 1.5 tab Clopidogrel Bisulfate (Plavix) 75 mg PO DAILY [facility] Last Admin: 05/04/18 09:26 Dose: 75 mg Digoxin (Lanoxin) 0.125 mg PO DAILY [facility] Last Admin: 05/04/18 09:26 Dose: 0.125 mg Diltiazem HCl (Cardizem) 90 mg PO QID [facility] Last Admin: 05/04/18 16:29 Dose: 90 mg Famotidine (Pepcid) 20 mg PO BID [facility] Last Admin: 05/04/18 09:26 Dose: 20 mg Folic Acid (Folvite) 1 mg PO DAILY [facility] Last Admin: 05/04/18 09:26 Dose: 1 mg Furosemide (Lasix) 20 mg PO DAILY [facility] Last Admin: 05/04/18 09:26 Dose: 20 mg Ceftriaxone Sodium 1 gm/ (Sodium Chloride) 100 mls @ 200 mls/hr IVPB DAILY [facility] Last Admin: 05/04/18 09:24 Dose: 100 mls Magnesium Sulfate 2 gm/ Device 50 mls @ 50 mls/hr IVPB 1400 [facility] Last Admin: 05/04/18 13:25 Dose: 50 mls Polyethylene Glycol (Miralax) 17 gm PO DAILY [facility] Last Admin: 05/04/18 09:24 Dose: 17 gm Potassium Chloride (K-Dur) 20 meq PO TID-WM [facility] Last Admin: 05/04/18 16:29 Dose: 20 meq Quetiapine Fumarate (Seroquel) 25 mg PO HS [facility] Last Admin: 05/03/18 21:25 Dose: 25 mg Saccharomyces Boulardii (Florastor) 250 mg PO DAILY [facility] Last Admin: 05/04/18 09:25 Dose: 250 mg Senna/Docusate Sodium (Senokot S) 1 tab PO BID [facility] Last Admin: 05/04/18 09:26 Dose: 1 tab Sodium Chloride (Flush - Normal Saline) 10 ml IVF PRN PRN PRN Reason: Saline Flush Last Admin: 05/04/18 09:25 Dose: 10 ml Tamsulosin HCl (Flomax) 0.4 mg PO [facility] Last Admin: 05/03/18 21:25 Dose: 0.4 mg Zolpidem Tartrate (Ambien) 5 mg PO HSPRN PRN PRN Reason: Insomnia
[2018-05-04] MEDS: Atorvastatin Calcium 10 MG TAB PO SCH (22:12)
[2018-05-04] MEDS: Tamsulosin HCl 0.4 MG CAP PO SCH (22:14)
[2018-05-05 05:57] LABS: Anion Gap 7 mmol/L (10-20); BUN (Urea Nitrogen) 13 mg/dL (8.4-25.7); Calc. Creatinine Clearance 111 mL/min (70-130); Calcium 8.2 mg/dL (7.8-10.44); Carbon Dioxide 27 mmol/L (23-31); Chloride 109 mmol/L (98-107); Estimated GFR-MDRD Greater than 90; Glucose 103 mg/dL (83-110); Magnesium 2.1 mg/dL (1.6-2.6); Potassium 3.7 mmol/L (3.5-5.1); Sodium 139 mmol/L (136-145)
[2018-05-05] MEDS: Potassium Chloride 20 MEQ TAB PO SCH ×3 (09:05→18:00)
[2018-05-05] MEDS: Apixaban 5 MG TAB PO SCH ×2 (09:05→20:58)
[2018-05-05] MEDS: Carbidopa/Levodopa 10-100 mg Tablet PO SCH ×4 (09:05→20:53)
[2018-05-05] MEDS: Saccharomyces boulardii 250 MG CAP PO SCH (09:06)
[2018-05-05] MEDS: Clopidogrel Bisulfate 75 MG TAB PO SCH (09:06)
[2018-05-05] MEDS: Digoxin 0.125 MG TAB PO SCH (09:06)
[2018-05-05] MEDS: Amantadine HCl 100 mg Capsule PO SCH (09:07)
[2018-05-05] MEDS: Famotidine 20 MG TAB PO SCH ×2 (09:07→20:58)
[2018-05-05] MEDS: Furosemide 20 MG TAB PO SCH (09:07)
[2018-05-05] MEDS: cefTRIAXone\\ROCEPHIN 1 GM in Sodium Chloride 0.9% 100 ML IVPB SCH (09:07)
[2018-05-05] MEDS: Folic Acid 1 MG TAB PO SCH (09:07)
[2018-05-05] MEDS: Senokot S 8.6-50 MG TAB PO SCH ×2 (09:07→21:00)
[2018-05-05] MEDS: Polyethylene Glycol 3350 17 GM Packet PO SCH (09:32)
[2018-05-05] MEDS ORDERED: Furosemide 40 MG/4 ML VIAL IVP SCH (13:45)
--- NOTE | 2018-05-05 13:53 | PDOC.CTH ---
Cardiology Progress Note - Subjective MOre lucid today but still appears confused and weak - Objective Vital Signs Temp Pulse Resp BP Pulse Ox 05/05/18 12:00 98.5 F 82 15 118/61 100 05/05/18 09:06 83 05/05/18 08:00 99.4 F 85 18 124/62 94 L 05/05/18 04:00 97.8 F 83 16 127/68 93 L Weight 235 lb 11.2 oz 05/04/18 05/05/18 05/06/18 06:59 06:59 06:59 Intake Total 920 1320 Output Total 1000 1025 Balance -80 295 - Physical Examination General/Neuro: NAD Neck: no JVD present Lungs: CTA, unlabored respirations Heart: other: (irr 2/6 VILMA) Extremities: + femoral B - Labs Result Diagrams: 05/04/18 04:44 05/05/18 04:56 Troponin/CKMB CK-MB (CK-2) 4.2 ng/mL (0-6.6) 04/30/18 11:54 Troponin I 0.061 ng/mL (< 0.028) H 04/30/18 17:59 - Assessment/Plan Afib Moderate to severe afib Parkinsons disease change po lasix to IV lasix Pt appears weak and confused Will need rehab and placement at this point, not felt to be a candidate for AVR (SAVR or TAVR)
--- NOTE | 2018-05-05 19:03 | PDOC.PN ---
- Subjective Encounter Start Date: 05/05/18 Encounter Start Time: 09:15 Patient seen and examined for CHF. No new complaints. No overnight events - Objective Resuscitation Status: Resuscitation Status FULL:Full Resuscitation MAR Reviewed: Yes Vital Signs & Weight: Vital Signs (12 hours) Temp Pulse Pulse Resp BP BP Pulse Ox 05/05/18 16:00 97.4 F L 80 15 114/64 97 05/05/18 13:22 83 124/62 05/05/18 12:00 98.5 F 82 15 118/61 100 05/05/18 09:06 83 05/05/18 08:00 99.4 F 85 18 124/62 94 L Pulse Ox 05/05/18 16:00 05/05/18 13:22 96 05/05/18 12:00 05/05/18 09:06 05/05/18 08:00 Weight Weight 235 lb 11.2 oz I&O: 05/04/18 05/05/18 05/06/18 06:59 06:59 06:59 Intake Total 920 1320 Output Total 1000 1025 1350 Balance -80 295 -1350 Result Diagrams: 05/04/18 04:44 05/05/18 04:56 EKG Reviewed by me: Yes (Tele Afib) Phys Exam - Physical Examination Constitutional: NAD Respiratory: no wheezing, no rhonchi Few bibasilar rales Cardiovascular: RRR, no rub Gastrointestinal: soft, non-tender, positive bowel sounds Musculoskeletal: no edema Dx/Plan - Plan DVT proph w/SCDs 1. Acute on chronic diastolic heart failure exacerbation/Severe aortic stenosis. 2. NSVT 3. Toxic metabolic encephalopathy prob due to catheter-associated UTI 4. Hypokalemia. 5. Hypomagnesemia. 6. Elevated troponins in the indeterminate range secondary to congestive heart failure/demand ischemia. 7. Elevated liver function tests, probably secondary to passive hepatic congestion. 8. Hypoalbuminemia/moderate protein calorie malnutrition. 9. Acute hypoxic respiratory failure secondary to acute on chronic diastolic heart failure exacerbation. 10. Chronic atrial fibrillation on anticoagulation. 11. Coronary artery disease, status post inferior ST elevation myocardial infarction in November of this year. 12. History of cerebrovascular accident earlier this year. 13. Folic acid deficiency. 14. Parkinson's disease. 15. Deconditioning. 16. Vascular dementia. PLAN: Cont IV Lasix per Cardiology Cont other meds as below Cont IV Atbx DC planning AM labs Review of Systems - Review of Systems Cardiovascular: negative: chest pain, palpitations, orthopnea, paroxysmal nocturnal dyspnea, edema, light headedness, other Gastrointestinal: negative: Nausea, Vomiting, Abdominal Pain, Diarrhea, Constipation, Melena, Hematochezia, Other - Medications/Allergies Allergies/Adverse Reactions: Allergies Allergy/AdvReac Type Severity Reaction Status Date / Time Beta-Blockers Allergy Verified 02/27/18 14:05 (Beta-Adrenergic Bloc Medications: Current Medications Acetaminophen (Tylenol) 650 mg PO Q4H PRN PRN Reason: Headache/Fever or Mild Pain Amantadine HCl (Symmetrel) 100 mg PO DAILY [facility] Last Admin: 05/05/18 09:07 Dose: 100 mg Apixaban (Eliquis) 5 mg PO BID [facility] Last Admin: 05/05/18 09:05 Dose: 5 mg Atorvastatin Calcium (Lipitor) 10 mg PO HS [facility] Last Admin: 05/04/18 22:12 Dose: 10 mg Carbidopa/Levodopa (Sinemet 10/100) 1.5 tab PO QID [facility] Last Admin: 05/05/18 17:59 Dose: 1.5 tab Clopidogrel Bisulfate (Plavix) 75 mg PO DAILY [facility] Last Admin: 05/05/18 09:06 Dose: 75 mg Digoxin (Lanoxin) 0.125 mg PO DAILY [facility] Last Admin: 05/05/18 09:06 Dose: 0.125 mg Diltiazem HCl (Cardizem) 90 mg PO QID [facility] Last Admin: 05/05/18 18:00 Dose: 90 mg Famotidine (Pepcid) 20 mg PO BID [facility] Last Admin: 05/05/18 09:07 Dose: 20 mg Folic Acid (Folvite) 1 mg PO DAILY [facility] Last Admin: 05/05/18 09:07 Dose: 1 mg Ceftriaxone Sodium 1 gm/ (Sodium Chloride) 100 mls @ 200 mls/hr IVPB DAILY [facility] Last Admin: 05/05/18 09:07 Dose: 100 mls Polyethylene Glycol (Miralax) 17 gm PO DAILY [facility] Last Admin: 05/05/18 09:32 Dose: Not Given Potassium Chloride (K-Dur) 20 meq PO TID[facility] Last Admin: 05/05/18 18:00 Dose: 20 meq Quetiapine Fumarate (Seroquel) 25 mg PO HS [facility] Last Admin: 05/04/18 22:12 Dose: 25 mg Saccharomyces Boulardii (Florastor) 250 mg PO DAILY [facility] Last Admin: 05/05/18 09:06 Dose: 250 mg Senna/Docusate Sodium (Senokot S) 1 tab PO BID [facility] Last Admin: 05/05/18 09:07 Dose: 1 tab Sodium Chloride (Flush - Normal Saline) 10 ml IVF PRN PRN PRN Reason: Saline Flush Last Admin: 05/04/18 22:12 Dose: 10 ml Tamsulosin HCl (Flomax) 0.4 mg PO HS [facility] Last Admin: 05/04/18 22:14 Dose: 0.4 mg Zolpidem Tartrate (Ambien) 5 mg PO HSPRN PRN PRN Reason: Insomnia
[2018-05-05] MEDS: Atorvastatin Calcium 10 MG TAB PO SCH (20:58)
[2018-05-05] MEDS: Tamsulosin HCl 0.4 MG CAP PO SCH (21:00)
[2018-05-06 06:06] LABS: Anion Gap 7 mmol/L (10-20); BUN (Urea Nitrogen) 14 mg/dL (8.4-25.7); Calc. Creatinine Clearance 113 mL/min (70-130); Calcium 8.3 mg/dL (7.8-10.44); Carbon Dioxide 28 mmol/L (23-31); Chloride 109 mmol/L (98-107); Estimated GFR-MDRD Greater than 90; Glucose 102 mg/dL (83-110); Magnesium 1.8 mg/dL (1.6-2.6); Potassium 3.9 mmol/L (3.5-5.1); Sodium 140 mmol/L (136-145)
[2018-05-06] MEDS: cefTRIAXone\\ROCEPHIN 1 GM in Sodium Chloride 0.9% 100 ML IVPB SCH (09:31)
[2018-05-06] MEDS: Folic Acid 1 MG TAB PO SCH (09:32)
[2018-05-06] MEDS: Clopidogrel Bisulfate 75 MG TAB PO SCH (09:32)
[2018-05-06] MEDS: Potassium Chloride 20 MEQ TAB PO SCH ×3 (09:32→17:40)
[2018-05-06] MEDS: Apixaban 5 MG TAB PO SCH ×2 (09:32→21:22)
[2018-05-06] MEDS: Digoxin 0.125 MG TAB PO SCH (09:32)
[2018-05-06] MEDS: Amantadine HCl 100 mg Capsule PO SCH (09:32)
[2018-05-06] MEDS: Saccharomyces boulardii 250 MG CAP PO SCH (09:32)
[2018-05-06] MEDS: Famotidine 20 MG TAB PO SCH ×2 (09:33→21:23)
[2018-05-06] MEDS: Senokot S 8.6-50 MG TAB PO SCH ×2 (09:33→21:23)
[2018-05-06] MEDS: Polyethylene Glycol 3350 17 GM Packet PO SCH (09:34)
[2018-05-06] MEDS: Carbidopa/Levodopa 10-100 mg Tablet PO SCH ×4 (11:20→21:20)
--- NOTE | 2018-05-06 15:22 | PDOC.CTH ---
Cardiology Progress Note - Subjective day. No complaints - Objective Vital Signs Temp Pulse Pulse Pulse Resp BP BP 05/06/18 11:19 98.2 F 92 17 05/06/18 10:23 92 89 118/75 112/72 05/06/18 09:32 83 05/06/18 09:25 98.0 F 83 18 05/06/18 04:00 97.1 F L 82 16 BP Pulse Ox Pulse Ox Pulse Ox 05/06/18 11:19 137/84 98 05/06/18 10:23 96 96 05/06/18 09:32 05/06/18 09:25 112/72 98 05/06/18 04:00 123/68 93 L Weight 236 lb 05/05/18 05/06/18 05/07/18 06:59 06:59 06:59 Intake Total 1320 250 Output Total 1025 2000 Balance 295 -1750 - Physical Examination General/Neuro: NAD Neck: no JVD present Lungs: unlabored respirations Heart: other: (irr) Abdomen: NT/ND, soft Extremities: + femoral B - Labs Result Diagrams: 05/04/18 04:44 05/06/18 05:27 Troponin/CKMB CK-MB (CK-2) 4.2 ng/mL (0-6.6) 04/30/18 11:54 Troponin I 0.061 ng/mL (< 0.028) H 04/30/18 17:59 - Assessment/Plan Afib Moderate to severe afib Parkinsons disease PT appears euvolic but weak Recommend rehab EF 40-45% Ok to home from cardiology standpoint o/p fu
--- NOTE | 2018-05-06 20:52 | PDOC.PN ---
- Subjective Encounter Start Date: 05/06/18 Encounter Start Time: 12:00 Patient seen and examined for CHF. Intermittent confusion. No new complaints. No overnight events - Objective Resuscitation Status: Resuscitation Status FULL:Full Resuscitation MAR Reviewed: Yes Vital Signs & Weight: Vital Signs (12 hours) Temp Pulse Pulse Pulse Resp BP BP 05/06/18 17:35 97.8 F 84 17 05/06/18 11:19 98.2 F 92 17 05/06/18 10:23 92 89 118/75 112/72 05/06/18 09:32 83 05/06/18 09:25 98.0 F 83 18 BP Pulse Ox Pulse Ox Pulse Ox 05/06/18 17:35 110/63 97 05/06/18 11:19 137/84 98 05/06/18 10:23 96 96 05/06/18 09:32 05/06/18 09:25 112/72 98 Weight Weight 236 lb I&O: 05/05/18 05/06/18 05/07/18 06:59 06:59 06:59 Intake Total 1320 250 580 Output Total 1025 2000 300 Balance 295 -1750 280 Result Diagrams: 05/04/18 04:44 05/06/18 05:27 EKG Reviewed by me: Yes (Tele Afib) Phys Exam - Physical Examination Constitutional: NAD Respiratory: no wheezing, no rhonchi Cardiovascular: RRR, no rub Gastrointestinal: soft, non-tender, positive bowel sounds Musculoskeletal: no edema Neurological: moves all 4 limbs Dx/Plan - Plan plan discussed w/ family 1. Acute on chronic diastolic heart failure exacerbation/Severe aortic stenosis. improving 2. NSVT - no new episodes 3. Toxic metabolic encephalopathy prob due to catheter-associated UTI 4. Hypokalemia. 5. Hypomagnesemia. 6. Elevated troponins in the indeterminate range secondary to congestive heart failure/demand ischemia. 7. Elevated liver function tests, probably secondary to passive hepatic congestion. 8. Hypoalbuminemia/moderate protein calorie malnutrition. 9. Acute hypoxic respiratory failure secondary to acute on chronic diastolic heart failure exacerbation. 10. Chronic atrial fibrillation on anticoagulation. 11. Coronary artery disease, status post inferior ST elevation myocardial infarction in November of this year. 12. History of cerebrovascular accident earlier this year. 13. Folic acid deficiency. 14. Parkinson's disease. 15. Deconditioning. 16. Vascular dementia. PLAN: Cont PO diuretics Cont other meds as below Cont IV Atbx x 1 day DC in AM to [facility] if stable AM labs Review of Systems - Review of Systems Respiratory: negative: Cough, Dry, Shortness of Breath, Hemoptysis, SOB with Excertion, Pleuritic Pain, Sputum, Wheezing Cardiovascular: negative: chest pain, palpitations, orthopnea, paroxysmal nocturnal dyspnea, edema, light headedness, other - Medications/Allergies Allergies/Adverse Reactions: Allergies Allergy/AdvReac Type Severity Reaction Status Date / Time Beta-Blockers Allergy Verified 02/27/18 14:05 (Beta-Adrenergic Bloc Medications: Current Medications Acetaminophen (Tylenol) 650 mg PO Q4H PRN PRN Reason: Headache/Fever or Mild Pain Amantadine HCl (Symmetrel) 100 mg PO DAILY [facility] Last Admin: 05/06/18 09:32 Dose: 100 mg Apixaban (Eliquis) 5 mg PO BID [facility] Last Admin: 05/06/18 09:32 Dose: 5 mg Atorvastatin Calcium (Lipitor) 10 mg PO HS [facility] Last Admin: 05/05/18 20:58 Dose: 10 mg Carbidopa/Levodopa (Sinemet 10/100) 1.5 tab PO QID [facility] Last Admin: 05/06/18 17:39 Dose: 1.5 tab Clopidogrel Bisulfate (Plavix) 75 mg PO DAILY [facility] Last Admin: 05/06/18 09:32 Dose: 75 mg Digoxin (Lanoxin) 0.125 mg PO DAILY [facility] Last Admin: 05/06/18 09:32 Dose: 0.125 mg Diltiazem HCl (Cardizem) 90 mg PO QID [facility] Last Admin: 05/06/18 17:39 Dose: 90 mg Famotidine (Pepcid) 20 mg PO BID [facility] Last Admin: 05/06/18 09:33 Dose: 20 mg Folic Acid (Folvite) 1 mg PO DAILY [facility] Last Admin: 05/06/18 09:32 Dose: 1 mg Ceftriaxone Sodium 1 gm/ (Sodium Chloride) 100 mls @ 200 mls/hr IVPB DAILY [facility] Last Admin: 05/06/18 09:31 Dose: 100 mls Polyethylene Glycol (Miralax) 17 gm PO DAILY [facility] Last Admin: 05/06/18 09:34 Dose: 17 gm Potassium Chloride (K-Dur) 20 meq PO TID[facility] Last Admin: 05/06/18 17:40 Dose: 20 meq Quetiapine Fumarate (Seroquel) 25 mg PO HS [facility] Last Admin: 05/05/18 20:58 Dose: 25 mg Saccharomyces Boulardii (Florastor) 250 mg PO DAILY [facility] Last Admin: 05/06/18 09:32 Dose: 250 mg Senna/Docusate Sodium (Senokot S) 1 tab PO BID [facility] Last Admin: 05/06/18 09:33 Dose: 1 tab Sodium Chloride (Flush - Normal Saline) 10 ml IVF PRN PRN PRN Reason: Saline Flush Last Admin: 05/06/18 09:30 Dose: 10 ml Tamsulosin HCl (Flomax) 0.4 mg PO [facility] Last Admin: 05/05/18 21:00 Dose: 0.4 mg Zolpidem Tartrate (Ambien) 5 mg PO HSPRN PRN PRN Reason: Insomnia
[2018-05-06] MEDS: Atorvastatin Calcium 10 MG TAB PO SCH (21:22)
[2018-05-06] MEDS: Tamsulosin HCl 0.4 MG CAP PO SCH (21:23)
[2018-05-07] MEDS: Carbidopa/Levodopa 10-100 mg Tablet PO SCH ×3 (08:42→16:48)
[2018-05-07] MEDS: Folic Acid 1 MG TAB PO SCH (08:43)
[2018-05-07] MEDS: Apixaban 5 MG TAB PO SCH (08:43)
[2018-05-07] MEDS: Clopidogrel Bisulfate 75 MG TAB PO SCH (08:43)
[2018-05-07] MEDS: Saccharomyces boulardii 250 MG CAP PO SCH (08:43)
[2018-05-07] MEDS: Amantadine HCl 100 mg Capsule PO SCH (08:43)
[2018-05-07] MEDS: Polyethylene Glycol 3350 17 GM Packet PO SCH (08:43)
[2018-05-07] MEDS: Potassium Chloride 20 MEQ TAB PO SCH ×3 (08:43→16:48)
[2018-05-07] MEDS: Senokot S 8.6-50 MG TAB PO SCH (08:43)
[2018-05-07] MEDS: Digoxin 0.125 MG TAB PO SCH (08:44)
[2018-05-07] MEDS: cefTRIAXone\\ROCEPHIN 1 GM in Sodium Chloride 0.9% 100 ML IVPB SCH (08:44)
[2018-05-07] MEDS: Famotidine 20 MG TAB PO SCH (08:44)
[2018-05-07 08:51] LABS: Anion Gap 8 mmol/L (10-20); BUN (Urea Nitrogen) 15 mg/dL (8.4-25.7); Calc. Creatinine Clearance 110 mL/min (70-130); Calcium 8.8 mg/dL (7.8-10.44); Carbon Dioxide 27 mmol/L (23-31); Chloride 110 mmol/L (98-107); Estimated GFR-MDRD Greater than 90; Glucose 108 mg/dL (83-110); Magnesium 1.9 mg/dL (1.6-2.6); Potassium 4.1 mmol/L (3.5-5.1); Sodium 141 mmol/L (136-145)
[2018-05-07 17:03] VITALS: BP 117/65; TEMP 98.1
--- NOTE | 2018-05-07 22:59 | DIS ---
DATE OF DISCHARGE: 05/07/2018 DISCHARGE DISPOSITION: Assisted living facility with [facility]. FOLLOWUP: 1. Followup with primary care physician, Dr. Geoffrey Paulino in 1 week. 2. Followup with Dr. Pires next month as scheduled. ALLERGIES: Patient is allergic to BETA BLOCKERS. BRIEF HOSPITAL COURSE: The patient is an 83-year-old male with chronic urinary retention, severe aor tic stenosis, and diastolic heart failure, presented to the hospital with shortness of breath. His w orkup was consistent with congestive heart failure exacerbation as well as catheter-associated UTI. He showed good improvement with gentle diuretics. He was evaluated by Cardiology, Dr. Pires. He has been cleared by Cardiology for discharge. He had one episode of nonsustained ventricular tachyc ardia, probably due to electrolyte abnormalities. His potassium and magnesium were low at that time. He did not have any recurrence of NSVT. His BNP on admission was 815. The patient received IV antibiotics during this hospital stay that has been discontinued. Urine cult ure showed mixed skin and enteric ginger. The patient and the family declined longterm facilit y. He has been cleared by Cardiology for discharge. FINAL DIAGNOSES: 1. Acute on chronic diastolic heart failure exacerbation. 2. Severe aortic stenosis. 3. Nonsustained ventricular tachycardia, probably due to electrolyte abnormalities. 4. Toxic metabolic encephalopathy. 5. Catheter-associated urinary tract infection. 6. Urinary retention with chronic indwelling Rojas catheter. 7. Hypokalemia. 8. Hypomagnesemia. 9. Elevated troponin secondary to demand ischemia. 10. Moderate protein-calorie malnutrition. 11. Acute hypoxic respiratory failure on admission secondary to acute on chronic diastolic heart tere lure exacerbation. 12. Chronic atrial fibrillation, on anticoagulation. 13. Coronary artery disease, status post inferior ST elevation myocardial infarction in November of this year. 14. History of cerebrovascular accident. 15. Folic acid deficiency. 16. Parkinson disease. 17. Deconditioning. 18. Vascular dementia. Total time coordinating the discharge of this patient was 37 minutes.
== END 2018-05-07 18:20 | disposition home or self-care (01) | DRG 291 ==
LOC: ERS 11:35 → ERHOLD 13:20 → 2NO 17:39
PROVIDERS: ADMIT Internal Medicine; ATTEND Internal Medicine
PROC: 5A09357 Assistance with Respiratory Ventilation, Less than 24 Consecutive Hours, Continuous Positive Airway Pressure (ICD-10-PCS; principal; 2018-04-30)
DX: I13.0 Hypertensive heart and chronic kidney disease with heart failure and stage 1 through stage 4 chronic kidney disease, or unspecified chronic kidney disease (principal); I50.33 Acute on chronic diastolic (congestive) heart failure; J96.01 Acute respiratory failure with hypoxia; T83.511A Infection and inflammatory reaction due to indwelling urethral catheter, initial encounter; N39.0 Urinary tract infection, site not specified; I24.8 Other forms of acute ischemic heart disease; E44.0 Moderate protein-calorie malnutrition; I25.10 Atherosclerotic heart disease of native coronary artery without angina pectoris; Z86.73 Personal history of transient ischemic attack (TIA), and cerebral infarction without residual deficits; G20 Parkinson's disease; I35.0 Nonrheumatic aortic (valve) stenosis; E83.42 Hypomagnesemia; I48.2 Chronic atrial fibrillation; R33.9 Retention of urine, unspecified; E63.8 Other specified nutritional deficiencies; Z95.5 Presence of coronary angioplasty implant and graft; I25.2 Old myocardial infarction; I07.1 Rheumatic tricuspid insufficiency; F01.50 Vascular dementia, unspecified severity, without behavioral disturbance, psychotic disturbance, mood disturbance, and anxiety; Z88.8 Allergy status to other drugs, medicaments and biological substances; Z79.899 Other long term (current) drug therapy; E87.6 Hypokalemia; K76.1 Chronic passive congestion of liver; E88.09 Other disorders of plasma-protein metabolism, not elsewhere classified; Z68.29 Body mass index [BMI] 29.0-29.9, adult
CPT/HCPCS: 36415; 71045; 80048; 80053; 80162; 81003; 81015; 82550; 82553; 82805; 83605; 83735; 83880; 84484; 85025; 85610; 85730; 87040; 87086; 90471; 90662; 93005; 93306; 94640; 94660; 96365; 96367; 96375; G0008; G8978-GP-CM; G8979-GP-CL; J0696; J1940; J1956; J7050; J7620

== ENCOUNTER 2018-05-08 00:09 | Emergency (ER) | payer MEDICARE, BC | END 2018-05-08 02:22 | disposition home or self-care (01) | LOC: ERS 00:09 | DX: Z46.6 Encounter for fitting and adjustment of urinary device (principal); I48.91 Unspecified atrial fibrillation; G20 Parkinson's disease; Z79.82 Long term (current) use of aspirin; Z79.899 Other long term (current) drug therapy | CPT/HCPCS: 51702 ==